=== PATIENT | female | born 1955 | race African-American/Black ===

== ENCOUNTER → 2017-02-22 | Outpatient (CLI) | payer MEDICAID ==
--- NOTE | 2017-02-22 11:31 | WOMENS IMAGING REPORT ---
EXAM DESCRIPTION: BILAT SCREENING MAMMO W/CAD COMPLETED DATE/TIME: 02/22/2017 9:42 am REASON FOR STUDY: ROUTINE SCREENING; Z12.31 Z12.31 ENCNTR SCREEN MAMMOGRAM FOR MALIGNANT NEOPLASM O F CHRISTEN COMPARISON: 2011 to 2015 TECHNIQUE: Standard craniocaudal and mediolateral oblique views of each breast recorded using [employer] l acquisition. LIMITATIONS: None. FINDINGS: No masses, calcifications or architectural distortion. No areas of suspicion. Read with the assistance of CAD. .[facility] - R2 Cenova Version 1.3 .[facility] Imaging - R2 Cenova Version 1.3 .[facility] - R2 Cenova Version 2.4 .[facility] [place] Cenova Version 2.4 .[facility] - R2 Night Assistant Version 9.2 IMPRESSION: NORMAL MAMMOGRAM. BIRADS 1. BREAST DENSITY: b. There are scattered areas of fibroglandular density. BIRAD: 1 NEGATIVE RECOMMENDATION: ROUTINE SCREENING COMMENT: The patient has been notified of the results by letter per SA requirements. Additional no tification policies are in place for contacting patient with suspicious or incomplete findings. Quality ID #[id number]: The [employer] recommends an annual screening mammogram for women aged 40 years or over. This facility utilizes a reminder system to ensure that all patients receive reminder letters, and/or direct phone calls for appointments. This includes reminders for routine scr eening mammograms, diagnostic mammograms, or other Breast Imaging Interventions when appropriate. Th is patient will be placed in the appropriate reminder system. The [employer] (ACR) has developed recommendations for screening MRI of the breast s in certain patient populations, to be used in conjunction with mammography. Breast MRI surveillanc e may be appropriate for women with more than 20% lifetime risk of developing breast cancer as deter mined by genetic testing, significant family history of the disease, or history of mantle radiation f or Hodgkins Disease. ACR Practice Guidelines 2008. TECHNICAL DOCUMENTATION: FINDING NUMBER: (1) ASSESSMENT: (1) JOB ID: [id number] [employer]- All Rights Reserved
== END ==
LOC: WI 09:17
PROVIDERS: ATTEND Internal Medicine
DX: Z12.31 Encounter for screening mammogram for malignant neoplasm of breast (principal)
CPT/HCPCS: 77067; G0202

== ENCOUNTER 2019-02-26 05:56 | Inpatient (IN) | payer MEDICAID ==
--- NOTE | 2019-02-26 06:48 | RADIOLOGY REPORT (SQ) ---
EXAM: X-ray hip two or more views CLINICAL DATA: 63-year-old female with hip pain status post fall TECHNICAL DATA: Two x-ray views of the pelvis and left hip were performed on 02/26/2019 at 6:32 AM. COMPARISONS: None FINDINGS: There is a mildly displaced, mildly comminuted acutely angulated fracture through the left femoral neck. The hip joints are intact. No lytic or sclerotic bone lesions are seen. No significant arthritic or degenerative changes are identified. Bone mineralization is normal. No focal soft tissue abnormalities are identified. IMPRESSION: Mildly displaced and mildly comminuted acutely angulated fracture through the left femoral neck.
[2019-02-26 06:54] LABS: ABSOLUTE EOSINOPHILS # (AUTO) 0.1 10^3/uL (0.0-0.6); ABSOLUTE LYMPHOCYTES (AUTO) 0.9 10^3/uL (0.5-4.7); ABSOLUTE MONOCYTES (AUTO) 0.4 10^3/uL (0.1-1.4); ABSOLUTE NEUT (AUTO) 3.6 10^3/uL (1.7-8.2); ALBUMIN 3.6 g/dL (3.5-5.0); ALKALINE PHOSPHATASE 70 U/L (38-126); ANION GAP 6 (5-19); ASPARTATE AMINO TRANSFERASE 18 U/L (14-36); BASOPHILS % (AUTO) 0.4 % (0-2); BILIRUBIN,DIRECT 0.3 mg/dL (0.0-0.4); BILIRUBIN,TOTAL 0.8 mg/dL (0.2-1.3); BLOOD UREA NITROGEN 31 mg/dL (7-20); CALCIUM 9.6 mg/dL (8.4-10.2); CARBON DIOXIDE 32 mmol/L (22-30); CHLORIDE 102 mmol/L (98-107); CREATINE KINASE 54 U/L (30-135); EOSINOPHILS % (AUTO) 1.3 % (0-6); GLUCOSE 255 mg/dL (75-110); HEMATOCRIT 37.6 % (36.0-47.0); HEMOGLOBIN 12.4 g/dL (12.0-15.5); LYMPHOCYTES % (AUTO) 17.8 % (13-45); MEAN CORPUSCULAR HEMOGLOBIN 28.6 pg (27.0-33.4); MEAN CORPUSCULAR HGB CONC 32.9 g/dL (32.0-36.0); MEAN CORPUSCULAR VOLUME 87 fl (80-97); MONOCYTES % (AUTO) 8.2 % (3-13); PLATELET COUNT 221 10^3/uL (150-450); POTASSIUM 4.4 mmol/L (3.6-5.0); RED BLOOD COUNT 4.33 10^6/uL (3.72-5.28); RED CELL DISTRIBUTION WIDTH 13.1 % (11.5-14.0); SEGMENTED NEUTROPHILS % (AUTO) 72.3 % (42-78); TOTAL CELLS COUNTED % (AUTO) 100 %; TOTAL PROTEIN 6.5 g/dL (6.3-8.2)
--- NOTE | 2019-02-26 07:09 | ER Document Report ---
Entered by KAUR JIM SCRIBE 02/26/19 0651 Acting as scribe for:BARRY NOVAK MD ED Fall - General Chief Complaint: Fall Stated Complaint: LEFT HIP PAIN Time Seen by Provider: 02/26/19 06:12 Mode of Arrival: Medic Information source: Patient Notes: Patient is a 63 year old female that presents to the emergency department today with complaints of left hip pain resulting from a fall that occurred just prior to arrival. Patient states that she fell trying to get to the bathroom. Patient states she falls a lot which she attributes to "low blood sugar". Patient states that after she fell she was unable to get up today. TRAVEL OUTSIDE OF THE [place] IN LAST 30 DAYS: No - Related data Allergies/Adverse Reactions: No Known Allergies Allergy (Unverified 08/22/11 11:10) Past Medical History - General Information source: Patient, [facility] Records - Social History Smoking Status: Former Smoker Cigarette use (# per day): No Frequency of alcohol use: None Drug Abuse: None Lives with: Family Family History: None - Past Medical History Cardiac Medical History: Reports: Hx Hypercholesterolemia, Hx Hypertension Endocrine Medical History: Reports: Hx Diabetes Mellitus Type 2 Musculoskeletal Medical History: Reports Hx Arthritis Past Surgical History: Reports: Hx Breast Surgery - breast bx - Immunizations Immunizations up to date: No Hx Diphtheria, Pertussis, Tetanus Vaccination: No - unknown Review of Systems - Review of Systems Constitutional: No symptoms reported EENT: No symptoms reported Cardiovascular: No symptoms reported Respiratory: No symptoms reported Gastrointestinal: No symptoms reported Genitourinary: No symptoms reported Female Genitourinary: No symptoms reported Musculoskeletal: See HPI, Joint pain - left hip Skin: No symptoms reported Hematologic/Lymphatic: No symptoms reported Neurological/Psychological: No symptoms reported -: Yes All other systems reviewed and negative Physical Exam - Vital signs Vitals: Temp 98.7 F 02/26/19 06:20 - Notes Notes: Physical Exam: General: Alert, appears uncomfortable. HEENT: Normocephalic. Atraumatic. PERRL. Extraocular movements intact. Oropharynx clear. Edentulous. Neck: Supple. Non-tender. Patient felt much better when the hard collar was removed. She lifted her head up and look at all about and reported no tenderness. There was no tenderness on palpating the posterior cervical muscles and spinous processes. Respiratory: No respiratory distress. Clear and equal breath sounds bilaterally. Cardiovascular: Regular rate and rhythm. Abdominal: Obese. No distension. Normal Bowel Sounds. Back: No gross abnormalities. Extremities: Upper extremities: Normal inspection. Normal ROM. Lower extremities: LLE is shortened and externally rotated. Left hip tenderness with palpation. 2+ dorsalis pedis pulses bilaterally. Toes are warm and distal sensation is intact. Neurological: Normal cognition. AAOx4. Normal speech. Psychological: Normal affect. Normal Mood. Skin: Warm. Dry. Normal color. Course - Vital Signs Vital signs: Temp Pulse Resp BP Pulse Ox 98.7 F 02/26/19 06:20 - Laboratory Result Diagrams: 02/26/19 06:07 02/26/19 06:07 Laboratory results interpreted by me: 02/26/19 02/26/19 06:07 07:00 Carbon Dioxide 32 H BUN 31 H Est GFR (MDRD) Non-Af 56 L Glucose 255 H Urine Glucose (UA) >=500 H Urine Blood SMALL H Ur Leukocyte Esterase LARGE H - Diagnostic Test Radiology reviewed: Image reviewed, Reports reviewed - Left femoral neck fracture, slightly displaced and angulated with some comminution. - EKG Interpretation by Me EKG shows normal: Sinus rhythm, [place], Intervals, ST-T Waves. abnormal: QRS Complexes - Abnormal R progression Rate: Normal Rhythm: NSR [place]/QRS: Left axis deviation When compared to previous EKG there are: Previous EKG unavailable - Consults Dr. Ambrocio Time consulted: 06:44 Consulted provider: will come to ER Dr. Cooley Time consulted: 07:40 Consulted provider: will see as inpatient Discharge - Discharge Clinical Impression: Fx femoral neck Qualifiers: Encounter type: initial encounter Fracture type: closed Laterality: left Qualified Code(s): S72.002A - Fracture of unspecified part of neck of left femur, initial encounter for closed fracture Urinary tract infection Qualifiers: Urinary tract infection type: site unspecified Hematuria presence: without hematuria Qualified Code(s): N39.0 - Urinary tract infection, site not specified Condition: Stable Disposition: ADMITTED INPATIENT Admitting Provider: Lenora Unit Admitted: Surgical Floor Scribe Attestation: 02/26/19 07:41 I personally performed the services described in the documentation, reviewed and edited the documentation which was dictated to the scribe in my presence, and it accurately records my words and actions. I personally performed the services described in the documentation, reviewed and edited the documentation which was dictated to the scribe in my presence, and it accurately records my words and actions.
--- NOTE | 2019-02-26 07:35 | Progress Note ---
Provider Note Provider Note: Patient seen and examined in the emergency department. Left femoral neck fracture without associated injury. Plan will be for left hip hemiarthroplasty versus total arthroplasty. -Make n.p.o. now, will work to have her added on this afternoon versus tomorrow. -Medical clearance needed -Pre-operative work-up including PT/INR type and screen, UA, EKG, CBC -Nonweightbearing -Full consult pending
[2019-02-26] MEDS ORDERED: FENTANYL CITRATE INJ/PF 100 MCG/2 ML AMPUL IV ONE (07:42)
[2019-02-26 07:45] LABS: APPEARANCE,URINE SLIGHTLY-CLOUDY; BILIRUBIN,URINE NEGATIVE (NEGATIVE); COLOR,URINE YELLOW; GLUCOSE, URINE >=500 mg/dL (NEGATIVE); KETONES,URINE NEGATIVE (NEGATIVE); LEUKOCYTE ESTERASE,URINE LARGE (NEGATIVE); NITRITE,URINE NEGATIVE (NEGATIVE); PROTEIN,URINE NEGATIVE (NEGATIVE); UROBILINOGEN,URINE NEGATIVE mg/dL (<2.0)
[2019-02-26] MEDS ORDERED: CEFTRIAXONE 1 GM/D5W RTU 1 GM/50 ML RTUPB IV ONE (07:54)
[2019-02-26] MEDS ORDERED: DEXTROSE 50%-WATER 25 GM/50 ML DISP.SYRIN IV PRN ×2 (08:19)
[2019-02-26] MEDS ORDERED: GLUCAGON,HUMAN RECOMB 1 MG INJ IM PRN (08:19)
[2019-02-26] MEDS ORDERED: DEXTROSE 40% GEL 15 GM TUBE PO PRN ×2 (08:19)
[2019-02-26 09:27] LABS: FREE T4 (FREE THYROXINE) 1.29 ng/dL (0.78-2.19)
[2019-02-26 09:40] LABS: THYROID STIMULATING HORMONE 6.8 uIU/mL (0.47-4.68)
[2019-02-26 09:43] LABS: INTERNATIONAL RATION (INR) 1.03; PROTHROMBIN TIME 13.5 SEC (11.4-15.4)
[2019-02-26 09:44] LABS: PARTIAL THROMBOPLASTIN TIME 27.2 SEC (23.5-35.8)
[2019-02-26 09:53] LABS: CREATINE KINASE MB 0.79 ng/mL (<4.55)
[2019-02-26 09:59] LABS: TROPONIN I < 0.012 ng/mL
[2019-02-26] MEDS: ENOXAPARIN SODIUM INJ 40 MG/0.4 ML DISP.SYRIN SUBCUT SCH (10:12)
[2019-02-26 10:21] LABS: URINE AMPHETAMINES SCREEN NEGATIVE; URINE BARBITURATES SCREEN NEGATIVE; URINE BENZODIAZEPINES SCREEN NEGATIVE; URINE COCAINE SCREEN NEGATIVE; URINE MARIJUANA (THC) SCREEN NEGATIVE; URINE METHADONE SCREEN NEGATIVE; URINE PHENCYCLIDINE SCREEN NEGATIVE
[2019-02-26] MEDS: NORMAL SALINE 1000 ML 1,000 ML IV PRN (10:33)
[2019-02-26] MEDS: INSULIN LISPRO 100 UNIT/ML 3 ML VIAL SUBCUT SCH ×3 (11:41→22:51)
[2019-02-26] MEDS: HYDROMORPHONE HCL INJ/PF 2 MG/ML AMPULE IV PRN ×2 (12:38→18:39)
--- NOTE | 2019-02-26 12:56 | PDOC CONSULTATION ---
Consultation Consult Date: 02/26/19 Provider Consulted: MAHOGANY YANG JR History of Present Illness Admission Date/PCP: 02/26/19 07:49 ESVIN VITAL MD History of Present Illness: LAURA EDOUARD is a 63 year old female seen and examined in the emergency department with a recent fall and then subsequent inability to ambulate. She explains that she was dizzy prior to her fall which she attributes to her sugar imbalance. Following her fall she had difficulty ambulating and pain in the left hip she presented to the ER where x-rays demonstrated a left femoral neck fracture. She denies prior pain in that joint however she is a regular ambulator. Pain right now is isolated to the left hip she denies pain elsewhere denies any associated injury or loss of consciousness. Pain currently is 5 out of 10 at rest achy leading to limited range of motion of her left hip. Past Medical History Cardiac Medical History: Reports: Hyperlipidema, Hypertension Denies: Coronary Artery Disease, Myocardial Infarction Pulmonary Medical History: Denies: Asthma, Bronchitis, Chronic Obstructive Pulmonary Disease (COPD), Pneumonia Neurological Medical History: Denies: Seizures Endocrine Medical History: Reports: Diabetes Mellitus Type 2 Musculoskeltal Medical History: Reports: Arthritis Hematology: Reports: Anemia Past Surgical History Past Surgical History: Denies: Pacemaker Social History Lives with: Family Smoking Status: Former Smoker Hx Recreational Drug Use: No - Advance Directive Resuscitation Status: Full Code Family History Family History: None Parental Family History Reviewed: No Children Family History Reviewed: No Sibling(s) Family History Reviewed.: No Medication/Allergy Home Medications: Benztropine Mesylate [Benztropine Mesylate 0.5 mg Tablet] 0.5 mg PO QHS 02/26/19 Cholecalciferol (Vitamin D3) [Vitamin D3 1000 Unit Tablet] 1,000 unit PO DAILY 02/26/19 Citalopram Hydrobromide [Citalopram HBr] 10 mg PO QHS 02/26/19 Dapagliflozin Propanediol [Farxiga] 10 mg PO DAILY 02/26/19 Furosemide [Lasix 40 mg Tablet] 40 mg PO QAM 02/26/19 Haloperidol [Haldol 5 mg Tablet] 2.5 mg PO QHS 02/26/19 Insulin Glargine,Hum.rec.anlog [Lantus Insulin 100 Unit/1 ml 10 ml] 38 unit SUBCUT QHS 02/26/19 Insulin Lispro [Humalog Insulin 100 Unit/1 ml 3 ml Vial] 14 unit SUBCUT BIDBL 02/26/19 Insulin Lispro [Humalog Insulin 100 Unit/1 ml 3 ml Vial] 18 unit SUBCUT WSUPPER 02/26/19 Metformin HCl [Glucophage 500 mg Tablet] 500 mg PO BIDACBS 02/26/19 Pioglitazone HCl [Actos] 30 mg PO DAILY 02/26/19 Simvastatin [Zocor 40 mg Tablet] 40 mg PO QHS 02/26/19 Solifenacin Succinate [Vesicare] 10 mg PO DAILY 02/26/19 Allergies/Adverse Reactions: No Known Allergies Allergy (Unverified 08/22/11 11:10) Review of Systems Review of Systems: Constitutional: ABSENT: anorexia, chills, night sweats Cardiovascular: ABSENT: chest pain Respiratory: ABSENT: dyspnea Gastrointestinal: ABSENT: vomiting Genitourinary: ABSENT: dysuria Integumentary: ABSENT: rash Neurological: ABSENT: confusion, memory loss, numbness Psychiatric: ABSENT: hallucinations Hematologic/Lymphatic: ABSENT: easy bleeding All negative as above aside from that reported in the HPI and the following: Slight dizzy spell upon standing that she attributes to her diabetes, pain in the left hip, no loss of sensation or motor function to the left lower extremity Physical Exam Vital Signs: Temp Pulse Resp BP Pulse Ox 98.6 F 91 18 116/62 98 02/26/19 11:12 02/26/19 11:12 02/26/19 11:12 02/26/19 11:12 02/26/19 11:12 Intake & Output 02/25/19 02/26/19 02/27/19 06:59 06:59 06:59 Intake Total 50 Balance 50 Weight 96.4 kg 88.6 kg Additional comments: General appearance: PRESENT: no acute distress, cooperative, well-nourished Head exam: PRESENT: atraumatic, normocephalic Eye exam: PRESENT: EOMI Ear exam: PRESENT: normal external ear exam Mouth exam: PRESENT: neck supple Neck exam: ABSENT: tracheal deviation Respiratory exam: PRESENT: symmetrical, unlabored. ABSENT: accessory muscle use, wheezes Pulses: PRESENT: normal radial pulses, normal dorsalis pedis pul Vascular exam: PRESENT: normal capillary refill GI/Abdominal exam: ABSENT: distended, firm Extremities exam: PRESENT: full ROM Musculoskeletal exam: PRESENT: full ROM, normal inspection Neurological exam: PRESENT: alert, awake, oriented to person, oriented to place, oriented to time Psychiatric exam: PRESENT: appropriate affect. ABSENT: agitated Focused psych exam: ABSENT: catatonic Skin exam: PRESENT: intact. ABSENT: dry All as above aside from that noted in the HPI and the following: The patient underwent a full primary inspection including range of motion of all joints and palpation of all long bones. The patient maintains range of motion without pain of upper and lower extremity joints, no tenderness to the cervical spine or pain with neck range of motion, and no palpable crepitance or deformity aside from the exceptions below: Pain with range of motion of the left hip isolated to the groin, no skin abnormalities no abrasions bruising. The left lower extremity is currently short and externally rotated no pain to palpation about the left knee, active ankle range of motion doubt pain. Results Laboratory Results: 02/26/19 06:07 02/26/19 06:07 02/26/19 02/26/19 02/26/19 06:07 06:07 06:07 WBC 5.0 RBC 4.33 Hgb 12.4 Hct 37.6 MCV 87 MCH 28.6 MCHC 32.9 RDW 13.1 Plt Count 221 Seg Neutrophils % 72.3 Sodium 140.3 Potassium 4.4 Chloride 102 Carbon Dioxide 32 H Anion Gap 6 BUN 31 H Creatinine 0.99 Est GFR ( Amer) > 60 Glucose 255 H Calcium 9.6 Phosphorus 5.0 H Magnesium 2.1 Total Bilirubin 0.8 AST 18 Alkaline Phosphatase 70 Ammonia Total Protein 6.5 Albumin 3.6 Amylase 73 Lipase 71.2 TSH Free T4 Urine Color Urine Appearance Urine pH Ur Specific [place] Urine Protein Urine Glucose (UA) Urine Ketones Urine Blood Urine Nitrite Ur Leukocyte Esterase Urine WBC (Auto) Urine RBC (Auto) 02/26/19 02/26/19 02/26/19 06:07 07:00 09:05 WBC RBC Hgb Hct MCV MCH MCHC RDW Plt Count Seg Neutrophils % Sodium Potassium Chloride Carbon Dioxide Anion Gap BUN Creatinine Est GFR ( Amer) Glucose Calcium Phosphorus Magnesium Total Bilirubin AST Alkaline Phosphatase Ammonia < 8.7 L Total Protein Albumin Amylase Lipase TSH 6.80 H Free T4 1.29 Urine Color YELLOW Urine Appearance SLIGHTLY-CLOUDY Urine pH 5.0 Ur Specific [place] 1.010 Urine Protein NEGATIVE Urine Glucose (UA) >=500 H Urine Ketones NEGATIVE Urine Blood SMALL H Urine Nitrite NEGATIVE Ur Leukocyte Esterase LARGE H Urine WBC (Auto) 104 Urine RBC (Auto) 2 02/26/19 02/26/19 02/26/19 06:07 06:07 06:07 Creatine Kinase 54 CK-MB (CK-2) Troponin I < 0.012 NT-Pro-B Natriuret Pep 84 02/26/19 02/26/19 09:05 09:05 Creatine Kinase 55 CK-MB (CK-2) 0.79 Troponin I < 0.012 NT-Pro-B Natriuret Pep Impressions: Hip X-Ray 02/26/19 00:00 IMPRESSION: Mildly displaced and mildly comminuted acutely angulated fracture through the left femoral neck. Assessment & Plan - Diagnosis (1) Fx femoral neck Qualifiers: Encounter type: initial encounter Fracture type: closed Laterality: left Qualified Code(s): S72.002A - Fracture of unspecified part of neck of left femur, initial encounter for closed fracture Plan: She is scheduled for a left hip hemiarthroplasty versus total arthroplasty tomorrow after lunch. -Left knee films pending -N.p.o. ordered for after midnight -Nonweightbearing -Anabiotic's ordered for preop -We will plan for aspirin for DVT prophylaxis postoperatively. Until that time please hold all chemical DVT prophylaxis -We will plan for PT evaluation and mobilization immediately postop tomorrow afternoon -Patient has a current UTI that may be asymptomatic bacteriuria but if culture demonstrates sensitivities outside of her perioperative antibiotics a presc ription should be written for 1 week of home use -MR SA nasal screen is ordered. (2) Urinary tract infection Qualifiers: Urinary tract infection type: site unspecified Hematuria presence: without hematuria Qualified Code(s): N39.0 - Urinary tract infection, site not specified
--- NOTE | 2019-02-26 15:05 | RADIOLOGY REPORT (SQ) ---
EXAM DESCRIPTION: KNEE LEFT 2 VIEWS COMPLETED DATE/TIME: 02/26/2019 2:34 pm REASON FOR STUDY: Pre-operative planning COMPARISON: None. NUMBER OF VIEWS: Three views. TECHNIQUE: AP, lateral, and oblique radiographic images acquired of the left knee. LIMITATIONS: None. FINDINGS: MINERALIZATION: Normal. BONES: No acute fracture or dislocation. No worrisome bone lesions. JOINT: No effusion. There are posterior patellar osteophytes. SOFT TISSUES: No soft tissue swelling. No radio-opaque foreign body. OTHER: No other significant finding. IMPRESSION: Mild degenerative joint changes. TECHNICAL DOCUMENTATION: JOB ID: [id number] [employer]- All Rights Reserved Reading location - IP/workstation name: [email or web address]
[2019-02-26 16:39] LABS: TROPONIN I < 0.012 ng/mL
--- NOTE | 2019-02-26 21:23 | PDOC H&P ---
History of Present Illness Admission Date/PCP: 02/26/19 07:49 ESVIN VITAL MD History of Present Illness: LAURA EDOUARD is a 63 year old female, She felt this morning and sustained fr acture of the left hip joint, there was no antecedent loss of consciousness there was no chest pain bowels no syncope she tripped and missed steps.She has insulin requiring diabetes mellitus. Based on the revised cardiac risk index score, she does not have coronary artery disease, no congestive heart failure, no chronic kidney disease with serum creatinine of more than 2, no CVA based on all these factors, the cardiovascular risk in the perioperative period is very low, she can proceed to surgery Past Medical History Cardiac Medical History: Reports: Hyperlipidema, Hypertension Endocrine Medical History: Reports: Diabetes Mellitus Type 2 Musculoskeltal Medical History: Reports: Arthritis Hematology: Reports: Anemia Past Surgical History Past Surgical History: Denies: Pacemaker Social History Lives with: Family Smoking Status: Former Smoker Hx Recreational Drug Use: No - Advance Directive Resuscitation Status: Full Code Family History Family History: None Parental Family History Reviewed: Yes Children Family History Reviewed: Yes Sibling(s) Family History Reviewed.: Yes Medication/Allergy Home Medications: Benztropine Mesylate [Benztropine Mesylate 0.5 mg Tablet] 0.5 mg PO QHS 02/26/19 Cholecalciferol (Vitamin D3) [Vitamin D3 1000 Unit Tablet] 1,000 unit PO DAILY 02/26/19 Citalopram Hydrobromide [Citalopram HBr] 10 mg PO QHS 02/26/19 Dapagliflozin Propanediol [Farxiga] 10 mg PO DAILY 02/26/19 Furosemide [Lasix 40 mg Tablet] 40 mg PO QAM 02/26/19 Haloperidol [Haldol 5 mg Tablet] 2.5 mg PO QHS 02/26/19 Insulin Glargine,Hum.rec.anlog [Lantus Insulin 100 Unit/1 ml 10 ml] 38 unit SUBCUT QHS 02/26/19 Insulin Lispro [Humalog Insulin 100 Unit/1 ml 3 ml Vial] 14 unit SUBCUT BIDBL 02/26/19 Insulin Lispro [Humalog Insulin 100 Unit/1 ml 3 ml Vial] 18 unit SUBCUT WSUPPER 02/26/19 Metformin HCl [Glucophage 500 mg Tablet] 500 mg PO BIDACBS 02/26/19 Pioglitazone HCl [Actos] 30 mg PO DAILY 02/26/19 Simvastatin [Zocor 40 mg Tablet] 40 mg PO QHS 02/26/19 Solifenacin Succinate [Vesicare] 10 mg PO DAILY 02/26/19 Allergies/Adverse Reactions: No Known Allergies Allergy (Unverified 08/22/11 11:10) Review of Systems Constitutional: ABSENT: chills, fever(s), headache(s), weight gain, weight loss Eyes: ABSENT: visual disturbances Ears: ABSENT: hearing changes Cardiovascular: ABSENT: chest pain, dyspnea on exertion, edema, orthropnea, palpitations Respiratory: ABSENT: cough, hemoptysis Gastrointestinal: ABSENT: abdominal pain, constipation, diarrhea, hematemesis, hematochezia, nausea, vomiting Genitourinary: ABSENT: dysuria, hematuria Musculoskeletal: PRESENT: joint swelling Integumentary: ABSENT: rash, wounds Neurological: ABSENT: abnormal gait, abnormal speech, confusion, dizziness, focal weakness, syncope Psychiatric: ABSENT: anxiety, depression, homidical ideation, suicidal ideation Endocrine: ABSENT: cold intolerance, heat intolerance, menstrual abnormalities, polydipsia, polyuria Hematologic/Lymphatic: ABSENT: easy bleeding, easy bruising, lymphadenopathy Physical Exam Vital Signs: Temp Pulse Resp BP Pulse Ox 98.5 F 95 16 122/53 L 94 02/26/19 19:08 02/26/19 19:08 02/26/19 19:08 02/26/19 19:08 02/26/19 19:08 Intake & Output 02/25/19 02/26/19 02/27/19 06:59 06:59 06:59 Intake Total 646 Output Total 1450 Balance -804 Weight 96.4 kg 88.6 kg General appearance: PRESENT: no acute distress, well-developed, well-nourished Head exam: PRESENT: atraumatic, normocephalic Eye exam: PRESENT: conjunctiva pink, EOMI, PERRLA Ear exam: PRESENT: normal external ear exam Mouth exam: PRESENT: moist, tongue midline Neck exam: PRESENT: full ROM Respiratory exam: PRESENT: clear to auscultation ifeoma Cardiovascular exam: PRESENT: RRR, +S1, +S2 Pulses: PRESENT: normal dorsalis pedis pul, +2 pedal pulses bilateral Vascular exam: PRESENT: normal capillary refill GI/Abdominal exam: PRESENT: normal bowel sounds, soft Rectal exam: PRESENT: deferred Neurological exam: PRESENT: alert, awake, oriented to person, oriented to place, oriented to time, oriented to situation, CN II-XII grossly intact Psychiatric exam: PRESENT: appropriate affect, normal mood Skin exam: PRESENT: dry, intact, warm. ABSENT: cyanosis, rash Results Laboratory Results: 02/26/19 06:07 02/26/19 06:07 02/26/19 02/26/19 02/26/19 06:07 06:07 06:07 WBC 5.0 RBC 4.33 Hgb 12.4 Hct 37.6 MCV 87 MCH 28.6 MCHC 32.9 RDW 13.1 Plt Count 221 Seg Neutrophils % 72.3 Sodium 140.3 Potassium 4.4 Chloride 102 Carbon Dioxide 32 H Anion Gap 6 BUN 31 H Creatinine 0.99 Est GFR ( Amer) > 60 Glucose 255 H Calcium 9.6 Phosphorus 5.0 H Magnesium 2.1 Total Bilirubin 0.8 AST 18 Alkaline Phosphatase 70 Ammonia Total Protein 6.5 Albumin 3.6 Amylase 73 Lipase 71.2 TSH Free T4 Urine Color Urine Appearance Urine pH Ur Specific [place] Urine Protein Urine Glucose (UA) Urine Ketones Urine Blood Urine Nitrite Ur Leukocyte Esterase Urine WBC (Auto) Urine RBC (Auto) 02/26/19 02/26/19 02/26/19 06:07 07:00 09:05 WBC RBC Hgb Hct MCV MCH MCHC RDW Plt Count Seg Neutrophils % Sodium Potassium Chloride Carbon Dioxide Anion Gap BUN Creatinine Est GFR ( Amer) Glucose Calcium Phosphorus Magnesium Total Bilirubin AST Alkaline Phosphatase Ammonia < 8.7 L Total Protein Albumin Amylase Lipase TSH 6.80 H Free T4 1.29 Urine Color YELLOW Urine Appearance SLIGHTLY-CLOUDY Urine pH 5.0 Ur Specific [place] 1.010 Urine Protein NEGATIVE Urine Glucose (UA) >=500 H Urine Ketones NEGATIVE Urine Blood SMALL H Urine Nitrite NEGATIVE Ur Leukocyte Esterase LARGE H Urine WBC (Auto) 104 Urine RBC (Auto) 2 02/26/19 02/26/19 02/26/19 06:07 06:07 06:07 Creatine Kinase 54 CK-MB (CK-2) Troponin I < 0.012 NT-Pro-B Natriuret Pep 84 02/26/19 02/26/19 02/26/19 09:05 09:05 15:20 Creatine Kinase 55 111 CK-MB (CK-2) 0.79 Troponin I < 0.012 NT-Pro-B Natriuret Pep 02/26/19 15:20 Creatine Kinase CK-MB (CK-2) 1.60 Troponin I < 0.012 NT-Pro-B Natriuret Pep Impressions: Hip X-Ray 02/26/19 00:00 IMPRESSION: Mildly displaced and mildly comminuted acutely angulated fracture through the left femoral neck. Knee X-Ray 02/26/19 00:00 IMPRESSION: Mild degenerative joint changes. 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
[2019-02-26 21:44] LABS: CREATINE KINASE MB 3.33 ng/mL (<4.55)
[2019-02-26 21:45] LABS: TROPONIN I < 0.012 ng/mL
[2019-02-26] MEDS ORDERED: (PENDING PHARMACY ID) (Citalopram Hydrobromide [Citalopram Hbr] 10 MG) PO SCH (22:00)
[2019-02-26] MEDS ORDERED: (PENDING PHARMACY ID) (Benztropine Mesylate [Benztropine Mesylate 0.5 Mg Tablet] 0.5 MG) PO SCH (22:00)
[2019-02-26] MEDS ORDERED: ACETAMINOPHEN 325 MG TABLET ONE (22:43)
[2019-02-26] MEDS: METFORMIN HCL 500 MG TABLET PO SCH (22:47)
[2019-02-26] MEDS: CITALOPRAM HYDROBROMIDE 20 MG TABLET PO SCH (22:49)
[2019-02-26] MEDS: SIMVASTATIN 40 MG TABLET PO SCH (22:49)
[2019-02-26] MEDS: HALOPERIDOL 5 MG TABLET PO SCH (22:50)
[2019-02-26] MEDS: INSULIN GLARGINE,HUM.REC.ANLOG 1,000 UNIT/10 ML VIAL SUBCUT SCH (22:52)
[2019-02-26] MEDS: PIOGLITAZONE HCL 30 MG TABLET PO SCH (22:54)
[2019-02-26] MEDS: CHOLECALCIFEROL (D3) 1,000 UNIT (25 MCG) TABLET PO SCH (22:58)
[2019-02-26] MEDS: ACETAMINOPHEN 325 MG TABLET PO PRN (23:06)
--- NOTE | 2019-02-26 23:16 | EKG REPORT ---
SEVERITY:- ABNORMAL ECG - SINUS RHYTHM BORDERLINE LEFT AXIS DEVIATION ABNRM R PROG, CONSIDER ASMI OR LEAD PLACEMENT : Confirmed by: Narendra Sanchez 26-Feb-2019 23:15:18
[2019-02-27] MEDS: NORMAL SALINE 1000 ML 1,000 ML IV PRN ×2 (01:04→22:33)
[2019-02-27] MEDS: HYDROMORPHONE HCL INJ/PF 2 MG/ML AMPULE IV PRN (01:04)
[2019-02-27] MEDS ORDERED: VANCOMYCIN HCL 1,000 MG in DEXTROSE 5%-WATER 250 ML IV PRN (05:00)
[2019-02-27] MEDS ORDERED: CEFAZOLIN SODIUM 2 GM in DEXTROSE 5%-WATER 100 ML IV SCH ×2 (06:00→14:00)
[2019-02-27] MEDS: METFORMIN HCL 500 MG TABLET PO SCH ×2 (07:52→17:43)
[2019-02-27] MEDS: INSULIN LISPRO 100 UNIT/ML 3 ML VIAL SUBCUT SCH ×4 (07:53→22:29)
[2019-02-27 08:01] LABS: ABSOLUTE EOSINOPHILS # (AUTO) 0.1 10^3/uL (0.0-0.6); ABSOLUTE LYMPHOCYTES (AUTO) 0.8 10^3/uL (0.5-4.7); ABSOLUTE MONOCYTES (AUTO) 0.7 10^3/uL (0.1-1.4); ABSOLUTE NEUT (AUTO) 5.9 10^3/uL (1.7-8.2); BASOPHILS % (AUTO) 0.3 % (0-2); EOSINOPHILS % (AUTO) 0.9 % (0-6); HEMOGLOBIN 11.2 g/dL (12.0-15.5); LYMPHOCYTES % (AUTO) 11.1 % (13-45); MEAN CORPUSCULAR HEMOGLOBIN 28.4 pg (27.0-33.4); MEAN CORPUSCULAR HGB CONC 32.9 g/dL (32.0-36.0); MEAN CORPUSCULAR VOLUME 86 fl (80-97); MONOCYTES % (AUTO) 9.2 % (3-13); PLATELET COUNT 199 10^3/uL (150-450); RED BLOOD COUNT 3.94 10^6/uL (3.72-5.28); RED CELL DISTRIBUTION WIDTH 12.9 % (11.5-14.0); SEGMENTED NEUTROPHILS % (AUTO) 78.5 % (42-78); TOTAL CELLS COUNTED % (AUTO) 100 %; WHITE BLOOD COUNT 7.5 10^3/uL (4.0-10.5)
[2019-02-27 08:22] LABS: ALBUMIN 3.3 g/dL (3.5-5.0); ALKALINE PHOSPHATASE 58 U/L (38-126); ANION GAP 8 (5-19); ASPARTATE AMINO TRANSFERASE 38 U/L (14-36); BILIRUBIN,DIRECT 0.3 mg/dL (0.0-0.4); BLOOD UREA NITROGEN 31 mg/dL (7-20); CALCIUM 8.8 mg/dL (8.4-10.2); CARBON DIOXIDE 28 mmol/L (22-30); CHLORIDE 99 mmol/L (98-107); CHOLESTEROL 175.18 mg/dL (0-200); GLUCOSE 134 mg/dL (75-110); POTASSIUM 3.8 mmol/L (3.6-5.0); TOTAL PROTEIN 6.3 g/dL (6.3-8.2); TRIGLYCERIDES 49 mg/dL (<150)
[2019-02-27 08:38] LABS: DIRECT LDL 78 mg/dL (<100)
[2019-02-27] MEDS: PIOGLITAZONE HCL 30 MG TABLET PO SCH (09:13)
[2019-02-27] MEDS: CHOLECALCIFEROL (D3) 1,000 UNIT (25 MCG) TABLET PO SCH (09:14)
[2019-02-27] MEDS: ENOXAPARIN SODIUM INJ 40 MG/0.4 ML DISP.SYRIN SUBCUT SCH (09:14)
[2019-02-27] MEDS ORDERED: CITALOPRAM HYDROBROMIDE 20 MG TABLET PO SCH (10:00)
[2019-02-27] MEDS ORDERED: PROPOFOL INJ 200 MG/20 ML VIAL IV ONE ×2 (12:15→13:11)
[2019-02-27] MEDS ORDERED: MIDAZOLAM 2 MG/2 ML INJ ONE (12:15)
[2019-02-27] MEDS ORDERED: HYDROMORPHONE HCL INJ/PF 2 MG/ML AMPULE ONE (12:15)
[2019-02-27] MEDS ORDERED: FENTANYL CITRATE INJ/PF 100 MCG/2 ML AMPUL ONE (12:15)
[2019-02-27] MEDS ORDERED: VANCOMYCIN HCL INJ 1000 MG VIAL IV ONE (12:30)
[2019-02-27] MEDS ORDERED: CEFAZOLIN SODIUM 2 GM in DEXTROSE 5%-WATER 100 ML IV PRN (12:45)
[2019-02-27] MEDS ORDERED: BUPIVACAINE HCL 0.5 % INJ/PF 30 ML SDV ONE (13:31)
[2019-02-27] MEDS ORDERED: VANCOMYCIN HCL INJ 1000 MG VIAL ONE ×2 (13:31→14:41)
[2019-02-27] MEDS ORDERED: GENTAMICIN SULFATE INJ 80 MG/2 ML VIAL ONE (13:31)
[2019-02-27] MEDS ORDERED: BACITRACIN INJ 50,000 UNIT VIAL ONE (13:32)
[2019-02-27] MEDS ORDERED: MORPHINE SULFATE 10 MG/ML INJ IV PRN (14:05)
[2019-02-27] MEDS ORDERED: DIPHENHYDRAMINE HCL 50 MG/ML VIAL IV PRN (14:05)
[2019-02-27] MEDS ORDERED: MEPERIDINE HCL/PF INJ 25 MG/1 ML DISP.SYRIN IV PRN (14:05)
[2019-02-27] MEDS ORDERED: OXYCODONE-ACETAMINOPHEN 5-325 MG TABLET PO PRN ×2 (14:05)
[2019-02-27] MEDS ORDERED: FENTANYL CITRATE INJ/PF 100 MCG/2 ML AMPUL IV PRN ×3 (14:05)
[2019-02-27] MEDS ORDERED: KETOROLAC TROMETHAMINE 60 MG/2 ML SDV ONE (14:06)
[2019-02-27] MEDS ORDERED: BUPIVACAINE HCL 0.25 % INJ/PF (2.5 MG/1 ML) 30 ML VIAL ONE (14:06)
[2019-02-27] MEDS ORDERED: ONDANSETRON HCL INJ/PF 4 MG/2 ML SDV IV PRN (14:10)
--- NOTE | 2019-02-27 16:29 | Brief Operative Note ---
BRIEF OPERATIVE REPORT DATE OF SURGERY: 02/27/19 TIME OF SURGERY: 16:27 PREOPERATIVE DIAGNOSIS: Left femoral neck fracture displaced POSTOPERATIVE DIAGNOSIS: same SURGEON: MAHOGANY YANG JR FINDINGS: left Femoral neck fracture, completely displaced COMPLICATIONS: None ESTIMATED BLOOD LOSS: 150cc TISSUE REMOVED OR ALTERED: none TECHNICAL PROCEDURE: Left hip bipolar hemiarthroplasty
--- NOTE | 2019-02-27 16:52 | RADIOLOGY REPORT (SQ) ---
EXAM DESCRIPTION: HIP LEFT AP/LATERAL; NO CHG FLUORO COMPLETED DATE/TIME: 02/27/2019 4:45 pm; 02/27/2019 4:44 pm REASON FOR STUDY: C ARM FLUORO IN OR FOR LEFT HIP COMPARISON: None. FLUOROSCOPY TIME: Less than 1 minute. Spot images saved to PACS. TECHNIQUE: Intra-operative images acquired during surgical procedure to evaluate progress. NUMBER OF IMAGES: 1 LIMITATIONS: None. FINDINGS: Fluoroscopy was provided for intraoperative procedure. Please refer to the operative repo rt for further discussion. IMPRESSION: IMAGE(S) OBTAINED DURING PROCEDURE. COMMENT: Quality ID 145: Final reports for procedures using fluoroscopy that document radiation exp osure indices, or exposure time and number of fluorographic images (if radiation exposure indices are not available) Please consult full operative report of the attending physician for description of the procedure. TECHNICAL DOCUMENTATION: JOB ID: [id number] [employer]- All Rights Reserved Reading location - IP/workstation name: [email or web address]
--- NOTE | 2019-02-27 16:52 | RADIOLOGY REPORT (SQ) ---
EXAM DESCRIPTION: HIP LEFT AP/LATERAL; NO CHG FLUORO COMPLETED DATE/TIME: 02/27/2019 4:45 pm; 02/27/2019 4:44 pm REASON FOR STUDY: C ARM FLUORO IN OR FOR LEFT HIP COMPARISON: None. FLUOROSCOPY TIME: Less than 1 minute. Spot images saved to PACS. TECHNIQUE: Intra-operative images acquired during surgical procedure to evaluate progress. NUMBER OF IMAGES: 1 LIMITATIONS: None. FINDINGS: Fluoroscopy was provided for intraoperative procedure. Please refer to the operative repo rt for further discussion. IMPRESSION: IMAGE(S) OBTAINED DURING PROCEDURE. COMMENT: Quality ID 145: Final reports for procedures using fluoroscopy that document radiation exp osure indices, or exposure time and number of fluorographic images (if radiation exposure indices are not available) Please consult full operative report of the attending physician for description of the procedure. TECHNICAL DOCUMENTATION: JOB ID: [id number] [employer]- All Rights Reserved Reading location - IP/workstation name: [email or web address]
--- NOTE | 2019-02-27 16:59 | Operative Report ---
Operative Report DATE OF SURGERY: 02/27/19 PREOPERATIVE DIAGNOSIS: Left complete [place] displaced femoral neck fracture POSTOPERATIVE DIAGNOSIS: Same OPERATION: Left hip uncemented bipolar hemiarthroplasty SURGEON: MAHOGANY YANG JR ANESTHESIA: Spinal TISSUE REMOVED OR ALTERED: None COMPLICATIONS: None PROCEDURE: Presented to the hospital on February 26 with a left completely displaced femoral neck fracture. I visited the patient the emergency department discussed operative versus nonoperative management and the risks for both. After a thorough just discussion including her sister who helps her make her medical decisions the patient provided written consent for a left hip hemiarthroplasty versus total arthroplasty. After further discussion with her primary provider Dr. Cooley, we decided that hemiarthroplasty would be the best for her considering her mental status and the benefit of the decreased risk of dislocation. I initially wanted to place the patient on the schedule for the third however due to OR timing and staffing constraints we were held until the fourth. This did provide further time to medically optimize the patient. The patient was brought to the operative suite where they underwent spinal anesthesia. After adequate anesthesia, they were placed supine on the operating table both legs were hung sterilely prepped with chlorhexidine. 2 g of Ancef as well as 1 g of vancomycin were given preoperatively. After draping a standard sterile fashion an appropriate timeout was performed. A standard anterior incision was made with cautery through the soft tissue down to the tensor fascia. This was then sharply incised and then bluntly developed until reaching the crossing vasculature. These were cauterized and then with the assistance of retraction the hip capsule was isolated. An incision was made into the hip capsule with cautery and the fracture was exposed. A freshening neck cut was made at the appropriate level for stem implantation. The head was then removed and all debris within the capsule at this point was removed a trial implant was placed starting with a 44 and working her way to a 47 which had excellent fit. We then turned our attention to the femur which we carefully exposed. No further fracture was noted along the calcar. Starting with a padded box sewer we then progressed to a straight reamer and subsequently reamed up to a 12. We followed this with broaching starting with a 7 and finally obtaining excellent fit at a 13. A standard trial with a -6 neck length was placed on the broach and reduced. This produced excellent fit, no impingement, minimal shuck, excellent leg length, and no position of instability throughout a full range of motion. Intraoperative fluoroscopy was utilized to confirm stem position which was excellent. After this the hip was dislocated the trials were removed and the wound was thoroughly irrigated with 2 L of anabolic impregnated normal saline. Fresh drape was then placed, all gloves were changed and then the final stem was implanted, along with the bipolar head assembly. This was then reduced and again taken through a range of motion which demonstrated excellent stability and leg length. The wound was then irrigated with 50% normal saline and iodine solution, after this was evacuated and evaluated for any potential bleeding which was cauterized. The wound was irrigated once more with normal saline impregnated with antibiotics and suctioned and then 1 g of vancomycin was placed inside the joint. The fascia was then closed with 0 barbed absorbable suture. The adipose layer was also closed with this suture, followed with 2-0 Vicryl subcutaneous interrupted and finally 3-0 Monocryl running subcutaneously. Dermabond was applied and once dry a silver dressing was applied followed by a final occlusive dressing. The drapes were removed and the patient was then transferred to PACU in stable condition. The patient can now be made weightbearing as tolerated. She will receive aspirin per my recommendation for DVT prophylaxis for 6 weeks, 325 mg daily. Additionally she should receive coverage for her UTI for the at least the next 7 days. Physical therapy should see her soon as possible to encourage mobilization and activities of daily living training.
--- NOTE | 2019-02-27 17:21 | Progress Note ---
Provider Note Provider Note: Patient is status post left hip hemiarthroplasty. Doing well in PACU. Still under influence of spinal anesthesia. Postoperative x-ray appropriate. PE: Starting to move bilateral ankles well. Gross motor function is intact as well as sensation. Patient alert and oriented in good spirits. Pulses 2+ dorsalis pedis - Recommend 2 doses of Ancef postoperatively every 8 hours. - Recommend definitive antibiotic regiment for her UTI. At least 1 week of coverage -Weightbearing as tolerated encourage PT out of bed [facility] for ADL training -Recommend aspirin 325 daily for DVT prophylaxis, ordered. -Recommend multimodal pain management to avoid excessive narcotics, including gabapentin, tramadol, Toradol, acetaminophen. -I would like to follow the patient my office within the next 7 to [address] [place] [address]. in [place] office #: [phone] -Her dressing should not be removed for 7 to 10 days until seen in the office -She may shower with the dressing intact, if it starts to come off she should not get the incision wet. -No positional hip precautions
--- NOTE | 2019-02-27 17:33 | RADIOLOGY REPORT (SQ) ---
EXAM DESCRIPTION: HIP LEFT AP/LATERAL COMPLETED DATE/TIME: 02/27/2019 5:08 pm REASON FOR STUDY: Post op COMPARISON: None. NUMBER OF VIEWS: Two view(s). TECHNIQUE: Digital radiographic images of the left hip post-procedure. LIMITATIONS: None. FINDINGS: BONES: Small periprosthetic fracture about the proximal femur just superior to the lesser trochanter. DEVICE: Bi-polar prothesis. Device appears in appropriate location. SOFT TISSUES: No worrisome findings. Expected postoperative soft tissue changes. IMPRESSION: Postsurgical changes from left hip arthroplasty. Small fracture about the proximal fem ur just superior to the lesser trochanter. COMMENT: TECHNICAL DOCUMENTATION: JOB ID: [id number] [employer]- All Rights Reserved Reading location - IP/workstation name: [email or web address]
--- NOTE | 2019-02-27 17:44 | PDOC PROGRESS REPORT ---
Subjective Progress Note for:: 02/27/19 Subjective:: number patient seen by the bedside, status post left hip hemiarthroplasty Reason For Visit: LEFT HIP FRACTURE, T2DM Physical Exam Vital Signs: Temp Pulse Resp BP Pulse Ox 98.6 F 96 17 141/62 H 98 02/27/19 17:39 02/27/19 17:39 02/27/19 17:39 02/27/19 17:39 02/27/19 17:39 Intake & Output 02/26/19 02/27/19 02/28/19 06:59 06:59 06:59 Intake Total 2126 650 Output Total 2350 350 Balance -224 300 Weight 96.4 kg 88.6 kg General appearance: PRESENT: no acute distress Eye exam: PRESENT: PERRLA Respiratory exam: PRESENT: clear to auscultation ifeoma Cardiovascular exam: PRESENT: +S1, +S2 GI/Abdominal exam: PRESENT: soft Neurological exam: PRESENT: alert Results Laboratory Results: 02/27/19 07:35 02/27/19 07:35 02/27/19 02/27/19 07:35 07:35 WBC 7.5 RBC 3.94 Hgb 11.2 L Hct 34.0 L MCV 86 MCH 28.4 MCHC 32.9 RDW 12.9 Plt Count 199 Seg Neutrophils % 78.5 H Sodium 134.9 L Potassium 3.8 Chloride 99 Carbon Dioxide 28 Anion Gap 8 BUN 31 H Creatinine 0.89 Est GFR ( Amer) > 60 Glucose 134 H Calcium 8.8 Total Bilirubin 1.0 AST 38 H Alkaline Phosphatase 58 Total Protein 6.3 Albumin 3.3 L Triglycerides 49 Cholesterol 175.18 LDL Cholesterol Direct 78 VLDL Cholesterol 10.0 HDL Cholesterol 69 02/26/19 02/26/19 02/26/19 06:07 06:07 06:07 Creatine Kinase 54 CK-MB (CK-2) Troponin I < 0.012 NT-Pro-B Natriuret Pep 84 02/26/19 02/26/19 02/26/19 09:05 09:05 15:20 Creatine Kinase 55 111 CK-MB (CK-2) 0.79 Troponin I < 0.012 NT-Pro-B Natriuret Pep 02/26/19 02/26/19 02/26/19 15:20 21:04 21:04 Creatine Kinase 279 H CK-MB (CK-2) 1.60 3.33 Troponin I < 0.012 < 0.012 NT-Pro-B Natriuret Pep Impressions: Knee X-Ray 02/26/19 00:00 IMPRESSION: Mild degenerative joint changes. Fluoroscopy 02/27/19 00:00 IMPRESSION: IMAGE(S) OBTAINED DURING PROCEDURE. Hip X-Ray 02/27/19 00:00 IMPRESSION: Postsurgical changes from left hip arthroplasty. Small fracture about the proximal femur just superior to the lesser trochanter. 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
[2019-02-27] MEDS ORDERED: CEFAZOLIN 2 GM/D5W RTU 2 GM/50 ML RTUPB IV SCH (20:00)
[2019-02-27] MEDS: ACETAMINOPHEN 325 MG TABLET PO PRN (20:34)
[2019-02-27] MEDS: CEFAZOLIN SODIUM 2 GM in DEXTROSE 5%-WATER 100 ML IV SCH (20:34)
[2019-02-27] MEDS: HALOPERIDOL 5 MG TABLET PO SCH (22:28)
[2019-02-27] MEDS: CITALOPRAM HYDROBROMIDE 20 MG TABLET PO SCH (22:28)
[2019-02-27] MEDS: SIMVASTATIN 40 MG TABLET PO SCH (22:29)
[2019-02-27] MEDS: INSULIN GLARGINE,HUM.REC.ANLOG 1,000 UNIT/10 ML VIAL SUBCUT SCH (22:30)
[2019-02-28 05:03] LABS: ABSOLUTE EOSINOPHILS # (AUTO) 0.1 10^3/uL (0.0-0.6); ABSOLUTE MONOCYTES (AUTO) 0.7 10^3/uL (0.1-1.4); ABSOLUTE NEUT (AUTO) 6.9 10^3/uL (1.7-8.2); BASOPHILS % (AUTO) 0.4 % (0-2); EOSINOPHILS % (AUTO) 0.8 % (0-6); HEMATOCRIT 29.1 % (36.0-47.0); MEAN CORPUSCULAR HEMOGLOBIN 29.3 pg (27.0-33.4); MEAN CORPUSCULAR HGB CONC 34.3 g/dL (32.0-36.0); MEAN CORPUSCULAR VOLUME 85 fl (80-97); PLATELET COUNT 166 10^3/uL (150-450); RED CELL DISTRIBUTION WIDTH 13.1 % (11.5-14.0); SEGMENTED NEUTROPHILS % (AUTO) 79.8 % (42-78); TOTAL CELLS COUNTED % (AUTO) 100 %; WHITE BLOOD COUNT 8.6 10^3/uL (4.0-10.5)
[2019-02-28 05:28] LABS: ALBUMIN 2.8 g/dL (3.5-5.0); ALKALINE PHOSPHATASE 53 U/L (38-126); ANION GAP 9 (5-19); ASPARTATE AMINO TRANSFERASE 147 U/L (14-36); BILIRUBIN,DIRECT 0.3 mg/dL (0.0-0.4); BILIRUBIN,TOTAL 1.1 mg/dL (0.2-1.3); BLOOD UREA NITROGEN 27 mg/dL (7-20); CALCIUM 8.4 mg/dL (8.4-10.2); CARBON DIOXIDE 25 mmol/L (22-30); CHLORIDE 103 mmol/L (98-107); GLUCOSE 118 mg/dL (75-110); POTASSIUM 3.7 mmol/L (3.6-5.0); TOTAL PROTEIN 5.5 g/dL (6.3-8.2)
[2019-02-28] MEDS: CEFAZOLIN SODIUM 2 GM in DEXTROSE 5%-WATER 100 ML IV SCH ×3 (06:05→21:31)
[2019-02-28] MEDS ORDERED: TRAMADOL HCL 50 MG TABLET PO PRN (06:54)
[2019-02-28] MEDS ORDERED: ACETAMINOPHEN 325 MG TABLET PO PRN (07:00)
[2019-02-28] MEDS ORDERED: OXYCODONE HCL IR 5 MG TABLET PO PRN (07:02)
--- NOTE | 2019-02-28 07:36 | PDOC PROGRESS REPORT ---
Subjective Subjective:: Patient doing well this morning. Pain well controlled. No new symptoms. Has not yet gotten out of bed. Reason For Visit: LEFT HIP FRACTURE, T2DM Physical Exam Vital Signs: Temp Pulse Resp BP Pulse Ox 98.4 F 111 H 18 125/57 L 93 02/27/19 22:30 02/27/19 22:30 02/27/19 22:30 02/27/19 22:30 02/27/19 22:30 Intake & Output 02/27/19 02/28/19 03/01/19 06:59 06:59 06:59 Intake Total 2126 2070 Output Total 2350 1250 Balance -224 820 Weight 88.6 kg 89.5 kg Physical Exam: General appearance: PRESENT: no acute distress, cooperative, well-nourished Head exam: PRESENT: atraumatic, normocephalic Eye exam: PRESENT: EOMI Ear exam: PRESENT: normal external ear exam Mouth exam: PRESENT: neck supple Neck exam: ABSENT: tracheal deviation Respiratory exam: PRESENT: symmetrical, unlabored. ABSENT: accessory muscle use, wheezes Pulses: PRESENT: normal radial pulses, normal dorsalis pedis pul Vascular exam: PRESENT: normal capillary refill GI/Abdominal exam: ABSENT: distended, firm Extremities exam: PRESENT: full ROM Musculoskeletal exam: PRESENT: full ROM, normal inspection Neurological exam: PRESENT: alert, awake, oriented to person, oriented to place, oriented to time Psychiatric exam: PRESENT: appropriate affect. ABSENT: agitated Focused psych exam: ABSENT: catatonic Skin exam: PRESENT: intact. ABSENT: dry All as above aside from that noted in the HPI and noted below: Left lower extremity neurovascularly intact. The wound is clean dry and intact. Pulses distally are 2+. Calf soft and nontender. She is moving her ankle and lower leg with full motor function. Sensation is grossly intact. Results Laboratory Results: 02/28/19 04:54 02/28/19 04:54 02/27/19 02/27/19 02/28/19 07:35 07:35 04:54 WBC 7.5 8.6 RBC 3.94 3.40 L Hgb 11.2 L 10.0 L Hct 34.0 L 29.1 L MCV 86 85 MCH 28.4 29.3 MCHC 32.9 34.3 RDW 12.9 13.1 Plt Count 199 166 Seg Neutrophils % 78.5 H 79.8 H Sodium 134.9 L Potassium 3.8 Chloride 99 Carbon Dioxide 28 Anion Gap 8 BUN 31 H Creatinine 0.89 Est GFR ( Amer) > 60 Glucose 134 H Calcium 8.8 Total Bilirubin 1.0 AST 38 H Alkaline Phosphatase 58 Total Protein 6.3 Albumin 3.3 L Triglycerides 49 Cholesterol 175.18 LDL Cholesterol Direct 78 VLDL Cholesterol 10.0 HDL Cholesterol 69 02/28/19 04:54 WBC RBC Hgb Hct MCV MCH MCHC RDW Plt Count Seg Neutrophils % Sodium 136.7 L Potassium 3.7 Chloride 103 Carbon Dioxide 25 Anion Gap 9 BUN 27 H Creatinine 0.93 Est GFR ( Amer) > 60 Glucose 118 H Calcium 8.4 Total Bilirubin 1.1 AST 147 H Alkaline Phosphatase 53 Total Protein 5.5 L Albumin 2.8 L Triglycerides Cholesterol LDL Cholesterol Direct VLDL Cholesterol HDL Cholesterol 02/26/19 09:42 Garcia Catheter Urine Culture - Final Klebsiella Pneumoniae 02/26/19 02/26/19 02/26/19 06:07 06:07 06:07 Creatine Kinase 54 CK-MB (CK-2) Troponin I < 0.012 NT-Pro-B Natriuret Pep 84 02/26/19 02/26/19 02/26/19 09:05 09:05 15:20 Creatine Kinase 55 111 CK-MB (CK-2) 0.79 Troponin I < 0.012 NT-Pro-B Natriuret Pep 02/26/19 02/26/19 02/26/19 15:20 21:04 21:04 Creatine Kinase 279 H CK-MB (CK-2) 1.60 3.33 Troponin I < 0.012 < 0.012 NT-Pro-B Natriuret Pep Impressions: Knee X-Ray 02/26/19 00:00 IMPRESSION: Mild degenerative joint changes. Fluoroscopy 02/27/19 00:00 IMPRESSION: IMAGE(S) OBTAINED DURING PROCEDURE. Hip X-Ray 02/27/19 00:00 IMPRESSION: Postsurgical changes from left hip arthroplasty. Small fracture about the proximal femur just superior to the lesser trochanter. COMMENT: Assessment & Plan - Diagnosis (1) Fx femoral neck Qualifiers: Encounter type: initial encounter Fracture type: closed Laterality: left Qualified Code(s): S72.002A - Fracture of unspecified part of neck of left femur, initial encounter for closed fracture Is this a current diagnosis for this admission?: Yes Plan: Status post left hip hemiarthroplasty postop day 1 -Recommend out of bed as much as possible, including assisted mobilization and ambulation with a walker. -Encourage PT to ambulate and training at activities of daily living -Weightbearing as tolerated -Aspirin for DVT prophylaxis -Multimodal pain control -Discharge when cleared by physical therapy and per primary -No dressing changes until seen in the office -I would like to see her in 7 to 10 days from the date of surgery - Complete 24 hourse of ancef (2) Urinary tract infection Qualifiers: Urinary tract infection type: site unspecified Hematuria presence: without hematuria Qualified Code(s): N39.0 - Urinary tract infection, site not specified Is this a current diagnosis for this admission?: Yes
[2019-02-28] MEDS: INSULIN LISPRO 100 UNIT/ML 3 ML VIAL SUBCUT SCH ×4 (09:00→21:35)
[2019-02-28] MEDS: CHOLECALCIFEROL (D3) 1,000 UNIT (25 MCG) TABLET PO SCH (09:03)
[2019-02-28] MEDS: METFORMIN HCL 500 MG TABLET PO SCH ×2 (09:03→16:04)
[2019-02-28] MEDS: PIOGLITAZONE HCL 30 MG TABLET PO SCH (09:03)
[2019-02-28] MEDS: ASPIRIN 325 MG TABLET PO SCH (09:03)
[2019-02-28] MEDS: OXYCODONE HCL IR 5 MG TABLET PO PRN (11:46)
[2019-02-28] MEDS: KETOROLAC TROMETHAMINE INJ/PF 30 MG/1 ML SDV IV SCH ×2 (13:53→21:29)
--- NOTE | 2019-02-28 14:26 | PDOC PROGRESS REPORT ---
Subjective Progress Note for:: 02/28/19 Subjective:: Patient seen by the bedside, the urine culture grew Klebsiella pneumonia presently on cefazolin, continue same treatment, she will need rehabilitation, question is with this be nursing rehabilitation or outpatient rehabilitation Reason For Visit: LEFT HIP FRACTURE, T2DM Physical Exam Vital Signs: Temp Pulse Resp BP Pulse Ox 98.4 F 85 18 126/61 H 99 02/28/19 08:07 02/28/19 08:07 02/28/19 08:07 02/28/19 08:07 02/28/19 08:07 Intake & Output 02/27/19 02/28/19 03/01/19 06:59 06:59 06:59 Intake Total 2126 2070 650 Output Total 2350 1250 Balance -224 820 650 Weight 88.6 kg 89.5 kg General appearance: PRESENT: no acute distress Eye exam: PRESENT: PERRLA Respiratory exam: PRESENT: clear to auscultation ifeoma Cardiovascular exam: PRESENT: +S1, +S2 GI/Abdominal exam: PRESENT: soft Results Laboratory Results: 02/28/19 04:54 02/28/19 04:54 02/28/19 02/28/19 04:54 04:54 WBC 8.6 RBC 3.40 L Hgb 10.0 L Hct 29.1 L MCV 85 MCH 29.3 MCHC 34.3 RDW 13.1 Plt Count 166 Seg Neutrophils % 79.8 H Sodium 136.7 L Potassium 3.7 Chloride 103 Carbon Dioxide 25 Anion Gap 9 BUN 27 H Creatinine 0.93 Est GFR ( Amer) > 60 Glucose 118 H Calcium 8.4 Total Bilirubin 1.1 AST 147 H Alkaline Phosphatase 53 Total Protein 5.5 L Albumin 2.8 L 02/26/19 09:42 Garcia Catheter Urine Culture - Final Klebsiella Pneumoniae 02/26/19 02/26/19 02/26/19 06:07 06:07 06:07 Creatine Kinase 54 CK-MB (CK-2) Troponin I < 0.012 NT-Pro-B Natriuret Pep 84 02/26/19 02/26/19 02/26/19 09:05 09:05 15:20 Creatine Kinase 55 111 CK-MB (CK-2) 0.79 Troponin I < 0.012 NT-Pro-B Natriuret Pep 02/26/19 02/26/19 02/26/19 15:20 21:04 21:04 Creatine Kinase 279 H CK-MB (CK-2) 1.60 3.33 Troponin I < 0.012 < 0.012 NT-Pro-B Natriuret Pep Impressions: Knee X-Ray 02/26/19 00:00 IMPRESSION: Mild degenerative joint changes. Fluoroscopy 02/27/19 00:00 IMPRESSION: IMAGE(S) OBTAINED DURING PROCEDURE. Hip X-Ray 02/27/19 00:00 IMPRESSION: Postsurgical changes from left hip arthroplasty. Small fracture about the proximal femur just superior to the lesser trochanter. COMMENT: Assessment & Plan - Diagnosis (1) Femoral neck fracture Qualifiers: Encounter type: initial encounter Fracture type: closed Laterality: right Qualified Code(s): S72.001A - Fracture of unspecified part of neck of right femur, initial encounter for closed fracture Is this a current diagnosis for this admission?: Yes (2) T2DM (type 2 diabetes mellitus) Qualifiers: Diabetes mellitus watermelon harvesting supervisor insulin use: with watermelon harvesting supervisor use Diabetes cirilo itus complication status: with neurologic complications Diabetes mellitus complication detail: with polyneuropathy Qualified Code(s): E11.42 - Type 2 diabetes mellitus with diabetic polyneuropathy; Z79.4 - exterminator (current) use of insulin Is this a current diagnosis for this admission?: Yes (3) Urinary tract infection due to Klebsiella species Is this a current diagnosis for this admission?: Yes Plan: Patient already started on cefazolin
[2019-02-28] MEDS: NORMAL SALINE 1000 ML 1,000 ML IV PRN (18:02)
[2019-02-28] MEDS: HALOPERIDOL 5 MG TABLET PO SCH (21:30)
[2019-02-28] MEDS: SIMVASTATIN 40 MG TABLET PO SCH (21:31)
[2019-02-28] MEDS: CITALOPRAM HYDROBROMIDE 20 MG TABLET PO SCH (21:32)
[2019-02-28] MEDS: BENZTROPINE MESYLATE 1 MG TABLET PO SCH (21:32)
[2019-02-28] MEDS: INSULIN GLARGINE,HUM.REC.ANLOG 1,000 UNIT/10 ML VIAL SUBCUT SCH (21:33)
[2019-03-01] MEDS: CEFAZOLIN SODIUM 2 GM in DEXTROSE 5%-WATER 100 ML IV SCH ×2 (06:20→14:14)
[2019-03-01] MEDS: KETOROLAC TROMETHAMINE INJ/PF 30 MG/1 ML SDV IV SCH ×3 (06:20→21:41)
[2019-03-01 06:49] LABS: ABSOLUTE EOSINOPHILS # (AUTO) 0.1 10^3/uL (0.0-0.6); ABSOLUTE LYMPHOCYTES (AUTO) 0.8 10^3/uL (0.5-4.7); ABSOLUTE MONOCYTES (AUTO) 0.9 10^3/uL (0.1-1.4); ABSOLUTE NEUT (AUTO) 6.2 10^3/uL (1.7-8.2); BASOPHILS % (AUTO) 0.3 % (0-2); HEMATOCRIT 28.4 % (36.0-47.0); HEMOGLOBIN 9.4 g/dL (12.0-15.5); LYMPHOCYTES % (AUTO) 10.1 % (13-45); MEAN CORPUSCULAR HEMOGLOBIN 28.5 pg (27.0-33.4); MEAN CORPUSCULAR HGB CONC 33.2 g/dL (32.0-36.0); MEAN CORPUSCULAR VOLUME 86 fl (80-97); MONOCYTES % (AUTO) 11.3 % (3-13); PLATELET COUNT 150 10^3/uL (150-450); RED BLOOD COUNT 3.31 10^6/uL (3.72-5.28); RED CELL DISTRIBUTION WIDTH 12.9 % (11.5-14.0); SEGMENTED NEUTROPHILS % (AUTO) 77.3 % (42-78); TOTAL CELLS COUNTED % (AUTO) 100 %
[2019-03-01 07:13] LABS: ALBUMIN 2.8 g/dL (3.5-5.0); ALKALINE PHOSPHATASE 111 U/L (38-126); ANION GAP 10 (5-19); ASPARTATE AMINO TRANSFERASE 202 U/L (14-36); BILIRUBIN,DIRECT 0.2 mg/dL (0.0-0.4); BILIRUBIN,TOTAL 1.1 mg/dL (0.2-1.3); BLOOD UREA NITROGEN 33 mg/dL (7-20); CALCIUM 8.3 mg/dL (8.4-10.2); CARBON DIOXIDE 23 mmol/L (22-30); CHLORIDE 101 mmol/L (98-107); GLUCOSE 203 mg/dL (75-110); POTASSIUM 3.8 mmol/L (3.6-5.0); TOTAL PROTEIN 5.4 g/dL (6.3-8.2)
[2019-03-01] MEDS: INSULIN LISPRO 100 UNIT/ML 3 ML VIAL SUBCUT SCH ×4 (08:44→21:55)
[2019-03-01] MEDS: METFORMIN HCL 500 MG TABLET PO SCH ×2 (08:44→16:33)
[2019-03-01] MEDS: ASPIRIN 325 MG TABLET PO SCH (10:34)
[2019-03-01] MEDS: CHOLECALCIFEROL (D3) 1,000 UNIT (25 MCG) TABLET PO SCH (10:34)
[2019-03-01] MEDS: OXYCODONE HCL IR 5 MG TABLET PO PRN (10:34)
[2019-03-01] MEDS: PIOGLITAZONE HCL 30 MG TABLET PO SCH (10:35)
[2019-03-01] MEDS: NORMAL SALINE 1000 ML 1,000 ML IV PRN (14:21)
--- NOTE | 2019-03-01 14:57 | PDOC PROGRESS REPORT ---
Subjective Subjective:: Patient seen and examined, no acute distress, doing very well and reports walking with minimal pain with assistance. She is very pleased with the outcome of surgery and her ability to ambulate. Reason For Visit: LEFT HIP FRACTURE, T2DM Physical Exam Vital Signs: Temp Pulse Resp BP Pulse Ox 98.0 F 92 16 101/50 L 98 03/01/19 11:35 03/01/19 11:35 03/01/19 11:35 03/01/19 11:35 03/01/19 11:35 Intake & Output 02/28/19 03/01/19 03/02/19 06:59 06:59 06:59 Intake Total 2070 1845 1000 Output Total 1250 800 Balance 820 1045 1000 Weight 89.5 kg 89.8 kg Physical Exam: General appearance: PRESENT: no acute distress, cooperative, well-nourished Head exam: PRESENT: atraumatic, normocephalic Eye exam: PRESENT: EOMI Ear exam: PRESENT: normal external ear exam Mouth exam: PRESENT: neck supple Neck exam: ABSENT: tracheal deviation Respiratory exam: PRESENT: symmetrical, unlabored. ABSENT: accessory muscle use, wheezes Pulses: PRESENT: normal radial pulses, normal dorsalis pedis pul Vascular exam: PRESENT: normal capillary refill GI/Abdominal exam: ABSENT: distended, firm Extremities exam: PRESENT: full ROM Musculoskeletal exam: PRESENT: full ROM, normal inspection Neurological exam: PRESENT: alert, awake, oriented to person, oriented to place, oriented to time Psychiatric exam: PRESENT: appropriate affect. ABSENT: agitated Focused psych exam: ABSENT: catatonic Skin exam: PRESENT: intact. ABSENT: dry All as above aside from that noted in the HPI and the following: Left lower extremity calves nontender soft, no acute swelling, pulses 2+, grossly neurovascular intact. The wound is clean dry and intact with scant proximal drainage. Results Laboratory Results: 03/01/19 06:29 03/01/19 06:29 03/01/19 03/01/19 06:29 06:29 WBC 8.0 RBC 3.31 L Hgb 9.4 L Hct 28.4 L MCV 86 MCH 28.5 MCHC 33.2 RDW 12.9 Plt Count 150 Seg Neutrophils % 77.3 Sodium 134.0 L Potassium 3.8 Chloride 101 Carbon Dioxide 23 Anion Gap 10 BUN 33 H Creatinine 0.95 Est GFR ( Amer) > 60 Glucose 203 H Calcium 8.3 L Total Bilirubin 1.1 AST 202 H Alkaline Phosphatase 111 Total Protein 5.4 L Albumin 2.8 L 02/26/19 02/26/19 02/26/19 06:07 06:07 06:07 Creatine Kinase 54 CK-MB (CK-2) Troponin I < 0.012 NT-Pro-B Natriuret Pep 84 02/26/19 02/26/19 02/26/19 09:05 09:05 15:20 Creatine Kinase 55 111 CK-MB (CK-2) 0.79 Troponin I < 0.012 NT-Pro-B Natriuret Pep 02/26/19 02/26/19 02/26/19 15:20 21:04 21:04 Creatine Kinase 279 H CK-MB (CK-2) 1.60 3.33 Troponin I < 0.012 < 0.012 NT-Pro-B Natriuret Pep Impressions: Knee X-Ray 02/26/19 00:00 IMPRESSION: Mild degenerative joint changes. Fluoroscopy 02/27/19 00:00 IMPRESSION: IMAGE(S) OBTAINED DURING PROCEDURE. Hip X-Ray 02/27/19 00:00 IMPRESSION: Postsurgical changes from left hip arthroplasty. Small fracture about the proximal femur just superior to the lesser trochanter. COMMENT: Assessment & Plan - Diagnosis (1) Fx femoral neck Qualifiers: Encounter type: initial encounter Fracture type: closed Laterality: left Qualified Code(s): S72.002A - Fracture of unspecified part of neck of left femur, initial encounter for closed fracture Is this a current diagnosis for this admission?: Yes Plan: Status post left hip hemiarthroplasty postoperative day #2. At this time she is orthopedically stable for discharge pending medical decision making -I would like to see her in my office on or before Monday the -She is to keep her dressing in place until office follow up, if it happens to fall off she is to avoid getting her incision wet -weight bearing as tolerated - PT/OT encourage out of bed -Ambulation with assistance, no precautions -DVT prophylaxis recommended aspirin for 6 weeks postoperatively -Recommend multimodal pain management to limit total narcotic use - Please have the patient follow with me at [address] [place] [address]. (2) Urinary tract infection Qualifiers: Urinary tract infection type: site unspecified Hematuria presence: without hematuria Qualified Code(s): N39.0 - Urinary tract infection, site not specified Is this a current diagnosis for this admission?: Yes
--- NOTE | 2019-03-01 18:19 | PDOC DISCHARGE SUMMARY ---
General - Admit/Disc Date/PCP Admission Date/Primary Care Provider: 02/26/19 07:49 ESVIN VITAL MD Discharge Date: 03/01/19 - Discharge Diagnosis (1) Femoral neck fracture Is this a current diagnosis for this admission?: Yes (2) T2DM (type 2 diabetes mellitus) Is this a current diagnosis for this admission?: Yes (3) Urinary tract infection due to Klebsiella species Is this a current diagnosis for this admission?: Yes - Additional Information Resuscitation Status: Full Code Prescriptions: Sulfamethoxazole/Trimethoprim [Bactrim Ds Tablet] 1 each PO BID #14 tablet Home Medications: Benztropine Mesylate [Benztropine Mesylate 0.5 mg Tablet] 0.5 mg PO QHS 02/26/19 Cholecalciferol (Vitamin D3) [Vitamin D3 1000 Unit Tablet] 1,000 unit PO DAILY 02/26/19 Citalopram Hydrobromide [Citalopram HBr] 10 mg PO QHS 02/26/19 Dapagliflozin Propanediol [Farxiga] 10 mg PO DAILY 02/26/19 Furosemide [Lasix 40 mg Tablet] 40 mg PO QAM 02/26/19 Haloperidol [Haldol 5 mg Tablet] 2.5 mg PO QHS 02/26/19 Insulin Glargine,Hum.rec.anlog [Lantus Insulin 100 Unit/1 ml 10 ml] 38 unit SUBCUT QHS 02/26/19 Insulin Lispro [Humalog Insulin 100 Unit/1 ml 3 ml Vial] 14 unit SUBCUT BIDBL 02/26/19 Insulin Lispro [Humalog Insulin 100 Unit/1 ml 3 ml Vial] 18 unit SUBCUT WSUPPER 02/26/19 Metformin HCl [Glucophage 500 mg Tablet] 500 mg PO BIDACBS 02/26/19 Pioglitazone HCl [Actos] 30 mg PO DAILY 02/26/19 Simvastatin [Zocor 40 mg Tablet] 40 mg PO QHS 02/26/19 Solifenacin Succinate [Vesicare] 10 mg PO DAILY 02/26/19 Sulfamethoxazole/Trimethoprim [Bactrim Ds Tablet] 1 each PO BID #14 tablet 03/01/19 History of Present Illness History of Present Illness: LAURA EDOUARD is a 63 year old female, She felt this morning and sustained fracture of the left hip joint, there was no antecedent loss of consciousness there was no chest pain , no syncope ,she tripped and missed her steps.She has insulin requiring diabetes mellitus. Based on the revised cardiac risk index score, she does not have coronary artery disease, no congestive heart failure, no chronic kidney disease with serum creatinine of more than 2, no CVA based on all these factors, the cardiovascular risk in the perioperative period is very low, she can proceed to surgery Hospital Course Hospital Course: She had left hip joint fracture, she was seen by Dr. Ambrocio orthopedic underwent left hemiarthroplasty.She also had Klebsiella UTI, pansensitive to all antibiotic. She was treated with IV cefazolin, this could be transitioned to p.o. Bactrim. I spoke to the business analyst consultant orthopedic, Dr. Ambrocio, in agreement that patient will be discharged home with outpatient physical therapy Physical Exam Vital Signs: Temp Pulse Resp BP Pulse Ox 98.4 F 95 16 94/45 L 100 03/01/19 15:56 03/01/19 15:56 03/01/19 11:35 03/01/19 15:56 03/01/19 15:56 Intake & Output 02/28/19 03/01/19 03/02/19 06:59 06:59 06:59 Intake Total 2070 1845 1340 Output Total 1250 800 100 Balance 820 1045 1240 Weight 89.5 kg 89.8 kg General appearance: PRESENT: no acute distress Head exam: PRESENT: atraumatic, normocephalic Eye exam: PRESENT: PERRLA Ear exam: PRESENT: normal external ear exam Mouth exam: PRESENT: moist, tongue midline Neck exam: PRESENT: full ROM Respiratory exam: PRESENT: clear to auscultation ifeoma Cardiovascular exam: PRESENT: RRR, +S1, +S2 Pulses: PRESENT: normal dorsalis pedis pul, +2 pedal pulses bilateral Vascular exam: PRESENT: normal capillary refill GI/Abdominal exam: PRESENT: normal bowel sounds, soft Rectal exam: PRESENT: deferred Neurological exam: PRESENT: alert, awake, oriented to person, oriented to place, oriented to time, oriented to situation, CN II-XII grossly intact Psychiatric exam: PRESENT: appropriate affect, normal mood Skin exam: PRESENT: dry, intact, warm Results Laboratory Results: 03/01/19 06:29 03/01/19 06:29 03/01/19 03/01/19 06:29 06:29 WBC 8.0 RBC 3.31 L Hgb 9.4 L Hct 28.4 L MCV 86 MCH 28.5 MCHC 33.2 RDW 12.9 Plt Count 150 Seg Neutrophils % 77.3 Sodium 134.0 L Potassium 3.8 Chloride 101 Carbon Dioxide 23 Anion Gap 10 BUN 33 H Creatinine 0.95 Est GFR ( Amer) > 60 Glucose 203 H Calcium 8.3 L Total Bilirubin 1.1 AST 202 H Alkaline Phosphatase 111 Total Protein 5.4 L Albumin 2.8 L 02/26/19 02/26/19 02/26/19 06:07 06:07 06:07 Creatine Kinase 54 CK-MB (CK-2) Troponin I < 0.012 NT-Pro-B Natriuret Pep 84 02/26/19 02/26/19 02/26/19 09:05 09:05 15:20 Creatine Kinase 55 111 CK-MB (CK-2) 0.79 Troponin I < 0.012 NT-Pro-B Natriuret Pep 02/26/19 02/26/19 02/26/19 15:20 21:04 21:04 Creatine Kinase 279 H CK-MB (CK-2) 1.60 3.33 Troponin I < 0.012 < 0.012 NT-Pro-B Natriuret Pep Impressions: Knee X-Ray 02/26/19 00:00 IMPRESSION: Mild degenerative joint changes. Fluoroscopy 02/27/19 00:00 IMPRESSION: IMAGE(S) OBTAINED DURING PROCEDURE. Hip X-Ray 02/27/19 00:00 IMPRESSION: Postsurgical changes from left hip arthroplasty. Small fracture about the proximal femur just superior to the lesser trochanter. COMMENT: Qualifiers - * PATIENT BEING DISCHARGED WITH ANY OF THE FOLLOWING DIAGNOSIS: No VTE patient discharged on overlapping Therapy?: No Reason(s) for not prescribing Overlap Therapy:: Not indicated Stroke Pt being discharged on Anti-thrombolytic therapy?: No Reason(s) for not prescribing Anti-thrombolytic therapy:: Not indicated Stroke Pt being discharged on Anti-coagulation therapy?: No Reason(s) for not prescribing Anti-coagulation therapy:: Not indicated Stroke Pt being discharged on Statins?: No Reason(s) for not prescribing Statins therapy:: Not indicated KS Pt being discharged on Aspirin therapy?: No Reason(s) for not prescribing Aspirin therapy:: Not indicated KS Pt being discharged on Statins?: No Reason(s) for not prescribing Statin therapy:: Not indicated KS Pt discharged ACEI/ARBS?: No Reason(s) for not prescribing ACEI/ARBS:: Not indicated Acute Heart Failure - Is this a Heart Failure Patient?: No Follow-up Appointment scheduled within 7 days?: Yes
[2019-03-01] MEDS ORDERED: ONDANSETRON HCL INJ/PF 4 MG/2 ML SDV IV PRN (19:30)
[2019-03-01] MEDS: HALOPERIDOL 5 MG TABLET PO SCH (21:40)
[2019-03-01] MEDS: CITALOPRAM HYDROBROMIDE 20 MG TABLET PO SCH (21:40)
[2019-03-01] MEDS: BENZTROPINE MESYLATE 1 MG TABLET PO SCH (21:40)
[2019-03-01] MEDS: SIMVASTATIN 40 MG TABLET PO SCH (21:40)
[2019-03-01] MEDS: INSULIN GLARGINE,HUM.REC.ANLOG 1,000 UNIT/10 ML VIAL SUBCUT SCH (21:41)
[2019-03-02] MEDS: KETOROLAC TROMETHAMINE INJ/PF 30 MG/1 ML SDV IV SCH ×3 (06:15→22:45)
[2019-03-02] MEDS: NORMAL SALINE 1000 ML 1,000 ML IV PRN ×2 (06:15→19:38)
[2019-03-02] MEDS: INSULIN LISPRO 100 UNIT/ML 3 ML VIAL SUBCUT SCH ×4 (07:15→22:47)
[2019-03-02] MEDS ORDERED: OXYCODONE HCL IR 5 MG TABLET PO PRN (09:00)
[2019-03-02] MEDS: ASPIRIN 325 MG TABLET PO SCH (09:28)
[2019-03-02] MEDS: CHOLECALCIFEROL (D3) 1,000 UNIT (25 MCG) TABLET PO SCH (09:28)
[2019-03-02] MEDS: METFORMIN HCL 500 MG TABLET PO SCH ×2 (09:28→17:07)
[2019-03-02] MEDS ORDERED: NORMAL SALINE 250 ML IV ONE (09:30)
[2019-03-02] MEDS: PIOGLITAZONE HCL 30 MG TABLET PO SCH (10:00)
[2019-03-02] MEDS ORDERED: DOCUSATE SODIUM 100 MG CAPSULE PO SCH (10:00)
[2019-03-02] MEDS ORDERED: NA PHOS,M-B/NA PHOS,DI-BA (ADULT) 133 ML ENEMA PR ONE (10:00)
[2019-03-02] MEDS ORDERED: NORMAL SALINE 1000 ML 1,000 ML IV ONE ×3 (11:06→12:33)
--- NOTE | 2019-03-02 11:07 | PDOC PROGRESS REPORT ---
Subjective Subjective:: Patient seen and examined this morning. Overnight the nurse reported that she had nausea and vomiting. Also that her urine has become darker. She has been on continuous IV fluids. She has had decreased appetite. This time she reports mild nausea but no overt abdominal pain. She has no new complaints regarding her left hip. Has been out of bed and has minimal pain. Has not been taking much narcotics mostly Tylenol and Toradol. Reason For Visit: LEFT HIP FRACTURE, T2DM Physical Exam Vital Signs: Temp Pulse Resp BP Pulse Ox 98.7 F 95 17 81/31 L 100 03/02/19 07:04 03/02/19 07:04 03/02/19 07:04 03/02/19 07:04 03/02/19 07:04 Intake & Output 03/01/19 03/02/19 03/03/19 06:59 06:59 06:59 Intake Total 1845 2700 Output Total 800 500 Balance 1045 2200 Weight 89.8 kg 95.9 kg Physical Exam: General appearance: PRESENT: no acute distress, cooperative, well-nourished Head exam: PRESENT: atraumatic, normocephalic Eye exam: PRESENT: EOMI Ear exam: PRESENT: normal external ear exam Mouth exam: PRESENT: neck supple Neck exam: ABSENT: tracheal deviation Respiratory exam: PRESENT: symmetrical, unlabored. ABSENT: accessory muscle use, wheezes Pulses: PRESENT: normal radial pulses, normal dorsalis pedis pul Vascular exam: PRESENT: normal capillary refill GI/Abdominal exam: Abdomen is soft nontender. Obese Extremities exam: PRESENT: full ROM Musculoskeletal exam: PRESENT: full ROM, normal inspection Neurological exam: PRESENT: alert, awake, oriented to person, oriented to place, oriented to time Psychiatric exam: PRESENT: appropriate affect. ABSENT: agitated Focused psych exam: ABSENT: catatonic Skin exam: PRESENT: intact. ABSENT: dry All as above aside from that noted in the HPI and the following: Dressing is clean dry and intact. Left lower extremity is without swelling calf tenderness, pulses are 2+ and the extremity is grossly neurovascular intact Results Laboratory Results: 03/01/19 06:29 03/01/19 06:29 02/26/19 02/26/19 02/26/19 06:07 06:07 06:07 Creatine Kinase 54 CK-MB (CK-2) Troponin I < 0.012 NT-Pro-B Natriuret Pep 84 02/26/19 02/26/19 02/26/19 09:05 09:05 15:20 Creatine Kinase 55 111 CK-MB (CK-2) 0.79 Troponin I < 0.012 NT-Pro-B Natriuret Pep 02/26/19 02/26/19 02/26/19 15:20 21:04 21:04 Creatine Kinase 279 H CK-MB (CK-2) 1.60 3.33 Troponin I < 0.012 < 0.012 NT-Pro-B Natriuret Pep Impressions: Knee X-Ray 02/26/19 00:00 IMPRESSION: Mild degenerative joint changes. Fluoroscopy 02/27/19 00:00 IMPRESSION: IMAGE(S) OBTAINED DURING PROCEDURE. Hip X-Ray 02/27/19 00:00 IMPRESSION: Postsurgical changes from left hip arthroplasty. Small fracture about the proximal femur just superior to the lesser trochanter. COMMENT: Assessment & Plan - Diagnosis (1) Fx femoral neck Qualifiers: Encounter type: initial encounter Fracture type: closed Laterality: left Qualified Code(s): S72.002A - Fracture of unspecified part of neck of left fem ur, initial encounter for closed fracture Is this a current diagnosis for this admission?: Yes Plan: No current changes to prior plan aside from working up her constipation and making sure that she is stable for discharge. (2) Urinary tract infection Qualifiers: Urinary tract infection type: site unspecified Hematuria presence: without hematuria Qualified Code(s): N39.0 - Urinary tract infection, site not specified Is this a current diagnosis for this admission?: Yes (5) Constipation Is this a current diagnosis for this admission?: Yes Plan: Patient has had nausea and vomiting, no bowel movement for 4 days -Discussed case with nursing staff as well as general surgery consult. -Orthostatic vital signs ordered -Abdominal x-ray ordered -Plan to continue limitation of narcotic use -Fluid bolus pending -Repeat UA pending -Will follow -Stool softener and enema recently delivered
--- NOTE | 2019-03-02 12:08 | RADIOLOGY REPORT (SQ) ---
EXAM DESCRIPTION: ABDOMEN 2 VIEWS COMPLETED DATE/TIME: 03/02/2019 11:37 am REASON FOR STUDY: flat/upright. portable. hip fx, abd pain, nausea. COMPARISON: None. NUMBER OF VIEWS: Two views. TECHNIQUE: Supine and erect/decubitus radiographic images of the abdomen acquired. LIMITATIONS: Body habitus. FINDINGS: FREE AIR: None. No abnormal gas collections. LUNG BASES: Clear. BOWEL GAS PATTERN: Gas-filled loops of nondilated large and small bowel. CALCIFICATIONS: No suspicious calcifications. SOFT TISSUES: No gross mass or suggestion of organomegaly. HARDWARE: None in the abdomen. BONES: No acute fracture. No worrisome bone lesions. OTHER: No other significant finding. IMPRESSION: Ileus. TECHNICAL DOCUMENTATION: JOB ID: [id number] [employer]- All Rights Reserved Reading location - IP/workstation name: [email or web address]
--- NOTE | 2019-03-02 12:47 | PDOC PROGRESS REPORT ---
Subjective Progress Note for:: 03/02/19 Subjective:: Patient's discharge to SNF not possible due to her medical insurance limitation. She is currently undergoing PT session to improve function to point of discharge home with CUSTODIAL OPERATIONS MANAGER and PT services. Reason For Visit: LEFT HIP FRACTURE, T2DM Physical Exam Vital Signs: Temp Pulse Resp BP Pulse Ox 97.9 F 98 17 88/37 L 98 03/02/19 11:12 03/02/19 11:12 03/02/19 07:04 03/02/19 11:12 03/02/19 11:12 Intake & Output 03/01/19 03/02/19 03/03/19 06:59 06:59 06:59 Intake Total 1845 2700 Output Total 800 500 Balance 1045 2200 Weight 89.8 kg 95.9 kg General appearance: PRESENT: no acute distress, mild distress Head exam: PRESENT: atraumatic, normocephalic Eye exam: PRESENT: conjunctiva pink. ABSENT: scleral icterus Ear exam: PRESENT: normal external ear exam Mouth exam: PRESENT: moist Respiratory exam: PRESENT: clear to auscultation ifeoma Cardiovascular exam: PRESENT: RRR. ABSENT: diastolic murmur, rubs, systolic murmur Vascular exam: ABSENT: pallor GI/Abdominal exam: PRESENT: normal bowel sounds, soft. ABSENT: distended, guarding, mass, organolmegaly, rebound, tenderness Rectal exam: PRESENT: deferred Extremities exam: PRESENT: tenderness - right hip surgical site. ABSENT: pedal edema Musculoskeletal exam: PRESENT: ambulatory - with PT personnel Neurological exam: PRESENT: alert, awake, oriented to person, oriented to place, oriented to time, oriented to situation, CN II-XII grossly intact. ABSENT: motor sensory deficit Psychiatric exam: PRESENT: appropriate affect, normal mood. ABSENT: homicidal ideation, suicidal ideation Skin exam: PRESENT: dry, warm Results Laboratory Results: 03/01/19 06:29 03/01/19 06:29 02/26/19 02/26/19 02/26/19 06:07 06:07 06:07 Creatine Kinase 54 CK-MB (CK-2) Troponin I < 0.012 NT-Pro-B Natriuret Pep 84 02/26/19 02/26/19 02/26/19 09:05 09:05 15:20 Creatine Kinase 55 111 CK-MB (CK-2) 0.79 Troponin I < 0.012 NT-Pro-B Natriuret Pep 02/26/19 02/26/19 02/26/19 15:20 21:04 21:04 Creatine Kinase 279 H CK-MB (CK-2) 1.60 3.33 Troponin I < 0.012 < 0.012 NT-Pro-B Natriuret Pep Impressions: Knee X-Ray 02/26/19 00:00 IMPRESSION: Mild degenerative joint changes. Fluoroscopy 02/27/19 00:00 IMPRESSION: IMAGE(S) OBTAINED DURING PROCEDURE. Hip X-Ray 02/27/19 00:00 IMPRESSION: Postsurgical changes from left hip arthroplasty. Small fracture about the proximal femur just superior to the lesser trochanter. COMMENT: Abdomen X-Ray 03/02/19 00:00 IMPRESSION: Ileus. Assessment & Plan - Diagnosis (1) Femoral neck fracture Qualifiers: Encounter type: initial encounter Fracture type: closed Laterality: right Qualified Code(s): S72.001A - Fracture of unspecified part of neck of right femur, initial encounter for closed fracture Is this a current diagnosis for this admission?: Yes Plan: Continue current management with physical therapy intervention. (2) Constipation Qualifiers: Constipation type: unspecified constipation type Qualified Code(s): K59.00 - Constipation, unspecified Is this a current diagnosis for this admission?: Yes Plan: Continue Fleet enema. Maintain on Colace 100 mg p.o bid. Start on Senokot 200 mg p.o qhs. (3) Hypotension Qualifiers: Hypotension type: orthostatic hypotension Qualified Code(s): I95.1 - Orthostatic hypotension Is this a current diagnosis for this admission?: Yes Plan: Infuse 1 liter normal saline bolus and increase maintenance rate to 100 mL/hour. (4) T2DM (type 2 diabetes mellitus) Qualifiers: Diabetes mellitus director long term care insulin use: with nursing home use Diabetes mellitus complication status: with neurologic complications Diabetes mellitus complication detail: with polyneuropathy Qualified Code(s): E11.42 - Type 2 diabetes mellitus with diabetic polyneuropathy; Z79.4 - supervisor intermediates (current) use of insulin Is this a current diagnosis for this admission?: Yes Plan: Continue current medication and dietary management. (5) Urinary tract infection due to Klebsiella species Is this a current diagnosis for this admission?: Yes Plan: Completed antibiotic therapy. repeat U/A with microscopy in view of her hypotension episode. - Time Time Spent with patient: 25-34 minutes Medications reviewed and adjusted accordingly: Yes Anticipated discharge: Home with Homehealth Within: Other - Inpatient Certification Based on my medical assessment, after consideration of the patient's comorbidities, presenting symptoms, or acuity I expect that the services needed warrant INPATIENT care.: Yes I certify that my determination is in accordance with my understanding of Medicare's requirements for reasonable and necessary INPATIENT services [42 CFR 412.3e].: Yes Medical Necessity: Significant Comorbidiites Make Outpatient Treatment Too Risky, Need Close Monitoring Due to Risk of Patient Decompensation, Need For IV Fluids, Need for Pain Control, Risk of Complication if Not Cared For in Hospital, Risk of Diagnosis Which Will Require Inpatient Eval/Care/Monitoring Post Hospital Care: D/C Fountain Worker Documentation - Plan Summary Plan Summary: D/C Dilaudid. Start on Senokot 2 tablets p.o qhs. IV fluid N/S 1000 ml bolus and increase rate to 100 mL/hour. Continue all other current medication management. Resume oral feeding.
[2019-03-02] MEDS: SENNOSIDES/DOCUSATE 8.6-50 MG 1 EACH TABLET PO SCH (13:55)
[2019-03-02] MEDS: DOCUSATE SODIUM 100 MG CAPSULE PO SCH (17:10)
--- NOTE | 2019-03-02 19:11 | PDOC CONSULTATION ---
Consultation Consult Date: 03/02/19 Provider Consulted: SURGICAL SURGICALIST Consult reason:: Abdominal pain, nausea, vomiting History of Present Illness Admission Date/PCP: 02/26/19 07:49 ESVIN VITAL MD History of Present Illness: LAURA EDOUARD is a 63 year old female status post hip arthroplasty. The patient reports that she has not had a bowel movement in 4 days. She passes minimal amounts of flatus. She began experiencing distention this morning, with nausea and vomiting after eating. The patient reports that she does not have severe amounts of pain, and has not taken very many narcotics. She denies melena, hematochezia, hematemesis. She denies fevers or chills. She does report orthostasis, weakness, fatigue, malaise, and dizziness. Past Medical History Cardiac Medical History: Reports: Hyperlipidema, Hypertension Denies: Coronary Artery Disease, Myocardial Infarction Pulmonary Medical History: Denies: Asthma, Bronchitis, Chronic Obstructive Pulmonary Disease (COPD), Pneumonia Neurological Medical History: Denies: Seizures Endocrine Medical History: Reports: Diabetes Mellitus Type 2 Musculoskeltal Medical History: Reports: Arthritis Hematology: Reports: Anemia Past Surgical History Past Surgical History: Reports: Hip Replacement Denies: Pacemaker Social History Lives with: Family Smoking Status: Former Smoker Hx Recreational Drug Use: No - Advance Directive Resuscitation Status: Full Code Family History Family History: None Parental Family History Reviewed: Yes Children Family History Reviewed: Yes Sibling(s) Family History Reviewed.: Yes Medication/Allergy Home Medications: Benztropine Mesylate [Benztropine Mesylate 0.5 mg Tablet] 0.5 mg PO QHS 02/26/19 Cholecalciferol (Vitamin D3) [Vitamin D3 1000 Unit Tablet] 1,000 unit PO DAILY 02/26/19 Citalopram Hydrobromide [Citalopram HBr] 10 mg PO QHS 02/26/19 Dapagliflozin Propanediol [Farxiga] 10 mg PO DAILY 02/26/19 Furosemide [Lasix 40 mg Tablet] 40 mg PO QAM 02/26/19 Haloperidol [Haldol 5 mg Tablet] 2.5 mg PO QHS 02/26/19 Insulin Glargine,Hum.rec.anlog [Lantus Insulin 100 Unit/1 ml 10 ml] 38 unit SUBCUT QHS 02/26/19 Insulin Lispro [Humalog Insulin 100 Unit/1 ml 3 ml Vial] 14 unit SUBCUT BIDBL 02/26/19 Insulin Lispro [Humalog Insulin 100 Unit/1 ml 3 ml Vial] 18 unit SUBCUT WSUPPER 02/26/19 Metformin HCl [Glucophage 500 mg Tablet] 500 mg PO BIDACBS 02/26/19 Pioglitazone HCl [Actos] 30 mg PO DAILY 02/26/19 Simvastatin [Zocor 40 mg Tablet] 40 mg PO QHS 02/26/19 Solifenacin Succinate [Vesicare] 10 mg PO DAILY 02/26/19 Sulfamethoxazole/Trimethoprim [Bactrim Ds Tablet] 1 each PO BID #14 tablet 03/01/19 Allergies/Adverse Reactions: No Known Allergies Allergy (Unverified 08/22/11 11:10) Review of Systems Constitutional: PRESENT: fatigue, weakness, other - Orthostasis. ABSENT: chills, fever(s) Ears: ABSENT: hearing changes Nose, Mouth, and Throat: ABSENT: sore throat Cardiovascular: ABSENT: chest pain Respiratory: ABSENT: cough, dyspnea Gastrointestinal: PRESENT: bloating, nausea, vomiting. ABSENT: abdominal pain, hematemesis, hematochezia, melena Genitourinary: ABSENT: dysuria Musculoskeletal: ABSENT: back pain Integumentary: ABSENT: pruritus, rash Neurological: PRESENT: dizziness. ABSENT: confusion, convulsions Psychiatric: ABSENT: anxiety, depression Endocrine: ABSENT: cold intolerance, heat intolerance Hematologic/Lymphatic: ABSENT: easy bleeding, easy bruising Physical Exam Vital Signs: Temp Pulse Resp BP Pulse Ox 97.9 F 98 17 88/37 L 98 03/02/19 11:12 03/02/19 11:12 03/02/19 07:04 03/02/19 11:12 03/02/19 11:12 Intake & Output 03/01/19 03/02/19 03/03/19 06:59 06:59 06:59 Intake Total 1845 2700 1250 Output Total 800 500 Balance 1045 2200 1250 Weight 89.8 kg 95.9 kg General appearance: PRESENT: no acute distress, cooperative Head exam: PRESENT: atraumatic, normocephalic Eye exam: PRESENT: EOMI, PERRLA. ABSENT: scleral icterus Mouth exam: PRESENT: moist, neck supple Neck exam: ABSENT: tenderness, thyromegaly, tracheal deviation Respiratory exam: PRESENT: clear to auscultation ifeoma, unlabored. ABSENT: chest wall tenderness, tachypnea, wheezes Cardiovascular exam: PRESENT: RRR Pulses: PRESENT: normal radial pulses GI/Abdominal exam: PRESENT: distended, soft. ABSENT: firm, guarding, tenderness Rectal exam: PRESENT: deferred Extremities exam: ABSENT: clubbing Neurological exam: PRESENT: alert, awake, oriented to person, oriented to place, oriented to time, oriented to situation, CN II-XII grossly intact Psychiatric exam: ABSENT: agitated, anxious, depressed Focused psych exam: ABSENT: delusional Skin exam: ABSENT: cyanosis, erythema, jaundice Results Laboratory Results: 03/01/19 06:29 03/01/19 06:29 02/26/19 02/26/19 02/26/19 06:07 06:07 06:07 Creatine Kinase 54 CK-MB (CK-2) Troponin I < 0.012 NT-Pro-B Natriuret Pep 84 02/26/19 02/26/19 02/26/19 09:05 09:05 15:20 Creatine Kinase 55 111 CK-MB (CK-2) 0.79 Troponin I < 0.012 NT-Pro-B Natriuret Pep 02/26/19 02/26/19 02/26/19 15:20 21:04 21:04 Creatine Kinase 279 H CK-MB (CK-2) 1.60 3.33 Troponin I < 0.012 < 0.012 NT-Pro-B Natriuret Pep Impressions: Knee X-Ray 02/26/19 00:00 IMPRESSION: Mild degenerative joint changes. Fluoroscopy 02/27/19 00:00 IMPRESSION: IMAGE(S) OBTAINED DURING PROCEDURE. Hip X-Ray 02/27/19 00:00 IMPRESSION: Postsurgical changes from left hip arthroplasty. Small fracture about the proximal femur just superior to the lesser trochanter. COMMENT: Abdomen X-Ray 03/02/19 00:00 IMPRESSION: Ileus. Assessment & Plan - Diagnosis (1) Postoperative ileus Is this a current diagnosis for this admission?: Yes (2) Acute on chronic blood loss anemia Is this a current diagnosis for this admission?: Yes - Plan Summary Plan Summary: This is a 63-year-old female with abdominal distention, nausea, vomiting, borderline hypotension, and poor urine output this morning. The patient has had 150 cc over 6 hours of urine output. Her BUN is elevated. This, coupled with fatigue, weakness, orthostasis, and borderline hypotension, I believe she is suffering from acute on chronic anemia (symptomatic). I have discussed this with the patient. She reports that she is a Yarsanism and will not take blood products. In light of this, I will provide her with 2 L normal saline bolus. Her blood (for lab work) should be drawn with pediatric tubes. I recommend monitoring the situation closely. Patient may require further crystalloid infusion, or possibly hetastarch. Patient also reports abdominal distention and lack of bowel movement. I have ordered a flat and upright abdominal series. She has mildly dilated loops of small bowel, and mildly dilated a sending and transverse colon. This is most consistent with postoperative ileus. I will increase her Colace to 200 mg p.o. twice daily. The patient received a fleets enema this morning, with good results. Hopefully this will resolve her nausea and vomiting. Repeat KUB x-ray tomorrow. Will follow.
[2019-03-02 21:42] LABS: APPEARANCE,URINE CLOUDY; BILIRUBIN,URINE NEGATIVE (NEGATIVE); GLUCOSE, URINE 50 mg/dL (NEGATIVE); KETONES,URINE NEGATIVE (NEGATIVE); LEUKOCYTE ESTERASE,URINE LARGE (NEGATIVE); NITRITE,URINE NEGATIVE (NEGATIVE); PROTEIN,URINE NEGATIVE (NEGATIVE); URINE SPECIFIC GRAVITY 1.013; UROBILINOGEN,URINE NEGATIVE mg/dL (<2.0)
[2019-03-02 21:43] LABS: COLOR,URINE DARK YELLOW
[2019-03-02] MEDS: HALOPERIDOL 5 MG TABLET PO SCH (22:46)
[2019-03-02] MEDS: CITALOPRAM HYDROBROMIDE 20 MG TABLET PO SCH (22:46)
[2019-03-02] MEDS: BENZTROPINE MESYLATE 1 MG TABLET PO SCH (22:47)
[2019-03-02] MEDS: SIMVASTATIN 40 MG TABLET PO SCH (22:47)
[2019-03-02] MEDS: INSULIN GLARGINE,HUM.REC.ANLOG 1,000 UNIT/10 ML VIAL SUBCUT SCH (22:48)
[2019-03-03] MEDS: NORMAL SALINE 1000 ML 1,000 ML IV PRN ×2 (05:12→14:38)
[2019-03-03] MEDS: KETOROLAC TROMETHAMINE INJ/PF 30 MG/1 ML SDV IV SCH ×3 (05:12→22:44)
[2019-03-03] MEDS: INSULIN LISPRO 100 UNIT/ML 3 ML VIAL SUBCUT SCH ×4 (08:15→22:54)
[2019-03-03] MEDS: PIOGLITAZONE HCL 30 MG TABLET PO SCH (09:05)
[2019-03-03] MEDS: ASPIRIN 325 MG TABLET PO SCH (09:05)
[2019-03-03] MEDS: METFORMIN HCL 500 MG TABLET PO SCH ×2 (09:05→16:55)
[2019-03-03] MEDS: CHOLECALCIFEROL (D3) 1,000 UNIT (25 MCG) TABLET PO SCH (09:06)
[2019-03-03] MEDS: DOCUSATE SODIUM 100 MG CAPSULE PO SCH ×2 (09:06→17:07)
[2019-03-03] MEDS: SENNOSIDES/DOCUSATE 8.6-50 MG 1 EACH TABLET PO SCH (09:06)
--- NOTE | 2019-03-03 09:45 | RADIOLOGY REPORT (SQ) ---
EXAM DESCRIPTION: KUB/ABDOMEN (SINGLE VIEW) COMPLETED DATE/TIME: 03/03/2019 7:49 am REASON FOR STUDY: Ileus COMPARISON: Previous day. NUMBER OF VIEWS: One view. TECHNIQUE: Supine radiographic image of the abdomen acquired. LIMITATIONS: None. FINDINGS: BOWEL GAS PATTERN: Gas-filled loops of nondilated large and small bowel. No progression. CALCIFICATIONS: No suspicious calcifications. SOFT TISSUES: No gross mass or suggestion of organomegaly. HARDWARE: None. BONES: No bone lesions or fracture. OTHER: No other significant finding. IMPRESSION: Ileus. No significant change. Reading location - IP/workstation name: [email or web address]
--- NOTE | 2019-03-03 10:33 | PDOC PROGRESS REPORT ---
Subjective Progress Note for:: 03/03/19 Subjective:: Patient has satisfactory bowel movement since last clinical evaluation by me. No abdominal pain but reported intermittent nausea without vomiting. Oral intake limited due to nausea and there is reported episode of hypoglycemia. Reason For Visit: LEFT HIP FRACTURE, T2DM Physical Exam Vital Signs: Temp Pulse Resp BP Pulse Ox 98.2 F 70 16 123/64 96 03/02/19 23:53 03/02/19 23:53 03/02/19 23:53 03/02/19 23:53 03/02/19 23:53 Intake & Output 03/02/19 03/03/19 03/04/19 06:59 06:59 06:59 Intake Total 2700 2977 Output Total 500 Balance 2200 2977 Weight 95.9 kg 92.1 kg Physical Exam: General appearance: PRESENT: no acute distress, mild distress Head exam: PRESENT: atraumatic, normocephalic Eye exam: PRESENT: conjunctiva pink. ABSENT: pallor, scleral icterus Ear exam: PRESENT: normal external ear exam Mouth exam: PRESENT: moist Respiratory exam: PRESENT: clear to auscultation ifeoma Cardiovascular exam: PRESENT: RRR. ABSENT: diastolic murmur, rubs, systolic murmur GI/Abdominal exam: PRESENT: normal bowel sounds, soft. ABSENT: distended, guarding, mass, organomegaly, rebound, tenderness Rectal exam: PRESENT: deferred Extremities exam: PRESENT: tenderness - right hip surgical site. ABSENT: pedal edema Musculoskeletal exam: PRESENT: ambulatory - with PT personnel Neurological exam: PRESENT: alert, awake, oriented to person, oriented to place, oriented to time, oriented to situation, CN II-XII grossly intact. ABSENT: motor sensory deficit Psychiatric exam: PRESENT: appropriate affect, normal mood. ABSENT: homicidal ideation, suicidal ideation Skin exam: PRESENT: dry, warm Results Laboratory Results: 03/01/19 06:29 03/01/19 06:29 03/02/19 21:20 Urine Color DARK YELLOW Urine Appearance CLOUDY Urine pH 5.0 Ur Specific [place] 1.013 Urine Protein NEGATIVE Urine Glucose (UA) 50 H Urine Ketones NEGATIVE Urine Blood MODERATE H Urine Nitrite NEGATIVE Ur Leukocyte Esterase LARGE H Urine WBC (Auto) 131 Urine RBC (Auto) 20 02/26/19 09:05 Blood Blood Culture - Final NO GROWTH IN 5 DAYS 02/26/19 02/26/1919 06:07 06:07 06:07 Creatine Kinase 54 CK-MB (CK-2) Troponin I < 0.012 NT-Pro-B Natriuret Pep 84 02/26/19 02/26/19 02/26/19 09:05 09:05 15:20 Creatine Kinase 55 111 CK-MB (CK-2) 0.79 Troponin I < 0.012 NT-Pro-B Natriuret Pep 02/26/19 02/26/19 02/26/19 15:20 21:04 21:04 Creatine Kinase 279 H CK-MB (CK-2) 1.60 3.33 Troponin I < 0.012 < 0.012 NT-Pro-B Natriuret Pep Impressions: Knee X-Ray 02/26/19 00:00 IMPRESSION: Mild degenerative joint changes. Fluoroscopy 02/27/19 00:00 IMPRESSION: IMAGE(S) OBTAINED DURING PROCEDURE. Hip X-Ray 02/27/19 00:00 IMPRESSION: Postsurgical changes from left hip arthroplasty. Small fracture about the proximal femur just superior to the lesser trochanter. COMMENT: Abdomen X-Ray 03/02/19 00:00 IMPRESSION: Ileus. KUB X-Ray 03/03/19 06:00 IMPRESSION: Ileus. No significant change. Assessment & Plan - Diagnosis (1) Femoral neck fracture Qualifiers: Encounter type: initial encounter Fracture type: closed Laterality: right Qualified Code(s): S72.001A - Fracture of unspecified part of neck of right femur, initial encounter for closed fracture Is this a current diagnosis for this admission?: Yes (2) Constipation Qualifiers: Constipation type: unspecified constipation type Qualified Code(s): K59.00 - Constipation, unspecified Is this a current diagnosis for this admission?: Yes (3) Hypotension Qualifiers: Hypotension type: orthostatic hypotension Qualified Code(s): I95.1 - Ortho static hypotension Is this a current diagnosis for this admission?: Yes (4) T2DM (type 2 diabetes mellitus) Qualifiers: Diabetes mellitus design supervisor insulin use: with design supervisor use Diabetes mellitus complication status: with neurologic complications Diabetes mellitus complication detail: with polyneuropathy Qualified Code(s): 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; Z79.4 - FDC (current) use of insulin Is this a current diagnosis for this admission?: Yes (5) Urinary tract infection due to Klebsiella species Is this a current diagnosis for this admission?: Yes - Time Time Spent with patient: 25-34 minutes Medications reviewed and adjusted accordingly: Yes Anticipated discharge: Home with Homehealth Within: Other - Inpatient Certification Based on my medical assessment, after consideration of the patient's comorbidities, presenting symptoms, or acuity I expect that the services needed warrant INPATIENT care.: Yes I certify that my determination is in accordance with my understanding of Medicare's requirements for reasonable and necessary INPATIENT services [42 CFR 412.3e].: Yes Medical Necessity: Significant Comorbidiites Make Outpatient Treatment Too Risky, Need Close Monitoring Due to Risk of Patient Decompensation, Need For IV Fluids, Risk of Complication if Not Cared For in Hospital, Risk of Diagnosis Which Will Require Inpatient Eval/Care/Monitoring Post Hospital Care: D/C Surgical Pathologist Documentation - Plan Summary Plan Summary: Continue current medical management and PT intervention. Possible d/c home with OPERATIONS AGENT services very soon.
--- NOTE | 2019-03-03 11:34 | PDOC PROGRESS REPORT ---
Subjective Progress Note for:: 03/03/19 Subjective:: The patient is reporting the stools and flatus, tolerating p.o. well, she is denying abdominal pain Reason For Visit: LEFT HIP FRACTURE, T2DM Physical Exam Vital Signs: Temp Pulse Resp BP Pulse Ox 98.2 F 70 16 123/64 96 03/02/19 23:53 03/02/19 23:53 03/02/19 23:53 03/02/19 23:53 03/02/19 23:53 Intake & Output 03/02/19 03/03/19 03/04/19 06:59 06:59 06:59 Intake Total 2700 2977 Output Total 500 Balance 2200 2977 Weight 95.9 kg 92.1 kg General appearance: PRESENT: no acute distress GI/Abdominal exam: PRESENT: soft - Noted distended, not tender without peritoneal signs Results Laboratory Results: 03/01/19 06:29 03/01/19 06:29 03/02/19 21:20 Urine Color DARK YELLOW Urine Appearance CLOUDY Urine pH 5.0 Ur Specific [place] 1.013 Urine Protein NEGATIVE Urine Glucose (UA) 50 H Urine Ketones NEGATIVE Urine Blood MODERATE H Urine Nitrite NEGATIVE Ur Leukocyte Esterase LARGE H Urine WBC (Auto) 131 Urine RBC (Auto) 20 02/26/19 10:09 Blood Blood Culture - Final NO GROWTH IN 5 DAYS 02/26/19 09:05 Blood Blood Culture - Final NO GROWTH IN 5 DAYS 02/26/19 02/26/19 02/26/19 06:07 06:07 06:07 Creatine Kinase 54 CK-MB (CK-2) Troponin I < 0.012 NT-Pro-B Natriuret Pep 84 02/26/19 02/26/19 02/26/19 09:05 09:05 15:20 Creatine Kinase 55 111 CK-MB (CK-2) 0.79 Troponin I < 0.012 NT-Pro-B Natriuret Pep 02/26/19 02/26/19 02/26/19 15:20 21:04 21:04 Creatine Kinase 279 H CK-MB (CK-2) 1.60 3.33 Troponin I < 0.012 < 0.012 NT-Pro-B Natriuret Pep Impressions: Knee X-Ray 02/26/19 00:00 IMPRESSION: Mild degenerative joint changes. Fluoroscopy 02/27/19 00:00 IMPRESSION: IMAGE(S) OBTAINED DURING PROCEDURE. Hip X-Ray 02/27/19 00:00 IMPRESSION: Postsurgical changes from left hip arthroplasty. Small fracture about the proximal femur just superior to the lesser trochanter. COMMENT: Abdomen X-Ray 03/02/19 00:00 IMPRESSION: Ileus. KUB X-Ray 03/03/19 06:00 IMPRESSION: Ileus. No significant change. Assessment & Plan - Diagnosis (1) Postoperative ileus Is this a current diagnosis for this admission?: Yes - Plan Summary Plan Summary: Assessment: Postoperative ileus, resolving Latus and stools present P.o. tolerated Abdominal obstructive series demonstrates still distended small bowel loops, despite the clinical improvement Plan: Continue clear liquids diet We will follow the patient 1 more day tomorrow
--- NOTE | 2019-03-03 13:55 | PDOC PROGRESS REPORT ---
Subjective Subjective:: Seen and examined this morning. Doing well and reports multiple bowel movements. Nausea is improving. Pain is minimal. Reason For Visit: LEFT HIP FRACTURE, T2DM Physical Exam Vital Signs: Temp Pulse Resp BP Pulse Ox 97.8 F 94 23 H 88/42 L 97 03/03/19 07:15 03/03/19 07:15 03/03/19 07:15 03/03/19 07:15 03/03/19 07:15 Intake & Output 03/02/19 03/03/19 03/04/19 06:59 06:59 06:59 Intake Total 2700 2977 225 Output Total 500 Balance 2200 2977 225 Weight 95.9 kg 92.1 kg Physical Exam: General appearance: PRESENT: no acute distress, cooperative, well-nourished Head exam: PRESENT: atraumatic, normocephalic Eye exam: PRESENT: EOMI Ear exam: PRESENT: normal external ear exam Mouth exam: PRESENT: neck supple Neck exam: ABSENT: tracheal deviation Respiratory exam: PRESENT: symmetrical, unlabored. ABSENT: accessory muscle use, wheezes Pulses: PRESENT: normal radial pulses, normal dorsalis pedis pul Vascular exam: PRESENT: normal capillary refill GI/Abdominal exam: ABSENT: distended, firm Extremities exam: PRESENT: full ROM Musculoskeletal exam: PRESENT: full ROM, normal inspection Neurological exam: PRESENT: alert, awake, oriented to person, oriented to place, oriented to time Psychiatric exam: PRESENT: appropriate affect. ABSENT: agitated Focused psych exam: ABSENT: catatonic Skin exam: PRESENT: intact. ABSENT: dry All as above aside from that noted in the HPI and the following: Wound evaluated. A fresh dressing is currently in place with scant drainage. Lower extremity otherwise neurovascular intact. Nursing removed and wound appears healthy. Results Laboratory Results: 03/01/19 06:29 03/01/19 06:29 03/02/19 21:20 Urine Color DARK YELLOW Urine Appearance CLOUDY Urine pH 5.0 Ur Specific [place] 1.013 Urine Protein NEGATIVE Urine Glucose (UA) 50 H Urine Ketones NEGATIVE Urine Blood MODERATE H Urine Nitrite NEGATIVE Ur Leukocyte Esterase LARGE H Urine WBC (Auto) 131 Urine RBC (Auto) 20 02/26/19 10:09 Blood Blood Culture - Final NO GROWTH IN 5 DAYS 02/26/19 09:05 Blood Blood Culture - Final NO GROWTH IN 5 DAYS 02/26/19 02/26/1902/26/19 06:07 06:07 06:07 Creatine Kinase 54 CK-MB (CK-2) Troponin I < 0.012 NT-Pro-B Natriuret Pep 84 02/26/19 02/26/19 02/26/19 09:05 09:05 15:20 Creatine Kinase 55 111 CK-MB (CK-2) 0.79 Troponin I < 0.012 NT-Pro-B Natriuret Pep 02/26/19 02/26/19 02/26/19 15:20 21:04 21:04 Creatine Kinase 279 H CK-MB (CK-2) 1.60 3.33 Troponin I < 0.012 < 0.012 NT-Pro-B Natriuret Pep Impressions: Knee X-Ray 02/26/19 00:00 IMPRESSION: Mild degenerative joint changes. Fluoroscopy 02/27/19 00:00 IMPRESSION: IMAGE(S) OBTAINED DURING PROCEDURE. Hip X-Ray 02/27/19 00:00 IMPRESSION: Postsurgical changes from left hip arthroplasty. Small fracture about the proximal femur just superior to the lesser trochanter. COMMENT: Abdomen X-Ray 03/02/19 00:00 IMPRESSION: Ileus. KUB X-Ray 03/03/19 06:00 IMPRESSION: Ileus. No significant change. Assessment & Plan - Diagnosis (1) Fx femoral neck Qualifiers: Encounter type: initial encounter Fracture type: closed Laterality: left Qualified Code(s): S72.002A - Fracture of unspecified part of neck of left femur, initial encounter for closed fracture Is this a current diagnosis for this admission?: Yes Plan: Currently the patient has improved in regards to her postoperative ileus. -Continue plans as previously instructed for postoperative left hip hemiarthroplasty. -For to see the patient in my office by Monday. -Discharge planning per case management and physical therapy. Family is concerned that the patient may not be able to be taken well care of at home. There urging SNF or rehab placement -The dressing was removed during assessment today and appeared clean and healing well with Dermabond covering it and protecting. The wound was wiped with alcohol swabs and then Betadine swab was applied prior to reapplication of an occlusive dressing. she is to keep that dressing in place until follow-up (2) Urinary tract infection Qualifiers: Urinary tract infection type: site unspecified Hematuria presence: without hematuria Qualified Code(s): N39.0 - Urinary tract infection, site not specified Is this a current diagnosis for this admission?: Yes (4) Hypotension Qualifiers: Hypotension type: orthostatic hypotension Qualified Code(s): I95.1 - Orthostatic hypotension Is this a current diagnosis for this admission?: Yes (5) Constipation Qualifiers: Constipation type: unspecified constipation type Qualified Code(s): K59.00 - Constipation, unspecified Is this a current diagnosis for this admission?: Yes
[2019-03-03] MEDS: BENZTROPINE MESYLATE 1 MG TABLET PO SCH (22:43)
[2019-03-03] MEDS: HALOPERIDOL 5 MG TABLET PO SCH (22:44)
[2019-03-03] MEDS: CITALOPRAM HYDROBROMIDE 20 MG TABLET PO SCH (22:44)
[2019-03-03] MEDS: SIMVASTATIN 40 MG TABLET PO SCH (22:44)
[2019-03-03] MEDS: INSULIN GLARGINE,HUM.REC.ANLOG 1,000 UNIT/10 ML VIAL SUBCUT SCH (22:55)
[2019-03-04] MEDS: KETOROLAC TROMETHAMINE INJ/PF 30 MG/1 ML SDV IV SCH ×3 (06:00→21:42)
[2019-03-04] MEDS: NORMAL SALINE 1000 ML 1,000 ML IV PRN ×2 (06:00→19:49)
[2019-03-04] MEDS: INSULIN LISPRO 100 UNIT/ML 3 ML VIAL SUBCUT SCH ×4 (08:11→21:45)
[2019-03-04] MEDS: METFORMIN HCL 500 MG TABLET PO SCH ×2 (08:26→16:55)
[2019-03-04] MEDS: CHOLECALCIFEROL (D3) 1,000 UNIT (25 MCG) TABLET PO SCH (09:57)
[2019-03-04] MEDS: PIOGLITAZONE HCL 30 MG TABLET PO SCH (09:57)
[2019-03-04] MEDS: DOCUSATE SODIUM 100 MG CAPSULE PO SCH ×2 (09:57→17:35)
[2019-03-04] MEDS: ASPIRIN 325 MG TABLET PO SCH (09:57)
[2019-03-04] MEDS: SENNOSIDES/DOCUSATE 8.6-50 MG 1 EACH TABLET PO SCH (09:57)
--- NOTE | 2019-03-04 12:07 | PDOC PROGRESS REPORT ---
Subjective Progress Note for:: 03/04/19 Subjective:: Patient comfortable, denies abdominal pain, reports flatus and stools, tolerating p.o. well. Reason For Visit: LEFT HIP FRACTURE, T2DM Physical Exam Vital Signs: Temp Pulse Resp BP Pulse Ox 98.0 F 88 16 99/53 L 98 03/04/19 08:00 03/04/19 08:00 03/04/19 08:00 03/04/19 08:00 03/04/19 08:00 Intake & Output 03/03/19 03/04/19 03/05/19 06:59 06:59 06:59 Intake Total 2977 2664 Output Total 400 Balance 2977 2264 Weight 92.1 kg 98.7 kg General appearance: PRESENT: no acute distress GI/Abdominal exam: PRESENT: soft, other - Not distended, not tender Results Laboratory Results: 03/01/19 06:29 03/01/19 06:29 02/26/19 13:46 Nasopharyngeal Gram Stain - Final 02/26/19 13:46 Nasopharyngeal Nasopharyngeal Culture - Final NORMAL SONIA 02/26/19 10:09 Blood Blood Culture - Final NO GROWTH IN 5 DAYS 02/26/19 09:05 Blood Blood Culture - Final NO GROWTH IN 5 DAYS 02/26/19 02/26/19 02/26/19 06:07 06:07 06:07 Creatine Kinase 54 CK-MB (CK-2) Troponin I < 0.012 NT-Pro-B Natriuret Pep 84 02/26/19 02/26/19 02/26/19 09:05 09:05 15:20 Creatine Kinase 55 111 CK-MB (CK-2) 0.79 Troponin I < 0.012 NT-Pro-B Natriuret Pep 02/26/19 02/26/19 02/26/19 15:20 21:04 21:04 Creatine Kinase 279 H CK-MB (CK-2) 1.60 3.33 Troponin I < 0.012 < 0.012 NT-Pro-B Natriuret Pep Impressions: Knee X-Ray 02/26/19 00:00 IMPRESSION: Mild degenerative joint changes. Fluoroscopy 02/27/19 00:00 IMPRESSION: IMAGE(S) OBTAINED DURING PROCEDURE. Hip X-Ray 02/27/19 00:00 IMPRESSION: Postsurgical changes from left hip arthroplasty. Small fracture about the proximal femur just superior to the lesser trochanter. COMMENT: Abdomen X-Ray 03/02/19 00:00 IMPRESSION: Ileus. KUB X-Ray 03/03/19 06:00 IMPRESSION: Ileus. No significant change. Assessment & Plan - Diagnosis (1) Postoperative ileus Is this a current diagnosis for this admission?: Yes - Plan Summary Plan Summary: Assessment: Patient tolerating p.o. well Stools x2 during the past 24 hours, flatus present Abdomen soft Plan: Resolving postop ileus I will sign off. Please call us back with questions.
[2019-03-04] MEDS: CITALOPRAM HYDROBROMIDE 20 MG TABLET PO SCH (21:43)
[2019-03-04] MEDS: HALOPERIDOL 5 MG TABLET PO SCH (21:43)
[2019-03-04] MEDS: BENZTROPINE MESYLATE 1 MG TABLET PO SCH (21:44)
[2019-03-04] MEDS: SIMVASTATIN 40 MG TABLET PO SCH (21:44)
[2019-03-04] MEDS: INSULIN GLARGINE,HUM.REC.ANLOG 1,000 UNIT/10 ML VIAL SUBCUT SCH (21:46)
--- NOTE | 2019-03-04 23:39 | PDOC PROGRESS REPORT ---
Subjective Progress Note for:: 03/04/19 Subjective:: Patient seen by the bedside, she was supposed to be discharged home on Monday but she was very weak with no energy not able to ambulate, the discharge plan was held Reason For Visit: LEFT HIP FRACTURE, T2DM Physical Exam Vital Signs: Temp Pulse Resp BP Pulse Ox 98.6 F 88 16 114/66 100 03/04/19 19:22 03/04/19 19:22 03/04/19 19:22 03/04/19 19:22 03/04/19 19:22 Intake & Output 03/03/19 03/04/19 03/05/19 06:59 06:59 06:59 Intake Total 2977 2664 1596 Output Total 400 Balance 2977 2264 1596 Weight 92.1 kg 98.7 kg General appearance: PRESENT: no acute distress Eye exam: PRESENT: PERRLA Respiratory exam: PRESENT: clear to auscultation ifeoma Cardiovascular exam: PRESENT: +S1, +S2 GI/Abdominal exam: PRESENT: soft Neurological exam: PRESENT: alert Results Laboratory Results: 03/01/19 06:29 03/01/19 06:29 02/26/19 02/26/19 02/26/19 06:07 06:07 06:07 Creatine Kinase 54 CK-MB (CK-2) Troponin I < 0.012 NT-Pro-B Natriuret Pep 84 02/26/19 02/26/19 02/26/19 09:05 09:05 15:20 Creatine Kinase 55 111 CK-MB (CK-2) 0.79 Troponin I < 0.012 NT-Pro-B Natriuret Pep 02/26/19 02/26/19 02/26/19 15:20 21:04 21:04 Creatine Kinase 279 H CK-MB (CK-2) 1.60 3.33 Troponin I < 0.012 < 0.012 NT-Pro-B Natriuret Pep Impressions: Knee X-Ray 02/26/19 00:00 IMPRESSION: Mild degenerative joint changes. Fluoroscopy 02/27/19 00:00 IMPRESSION: IMAGE(S) OBTAINED DURING PROCEDURE. Hip X-Ray 02/27/19 00:00 IMPRESSION: Postsurgical changes from left hip arthroplasty. Small fracture about the proximal femur just superior to the lesser trochanter. COMMENT: Abdomen X-Ray 03/02/19 00:00 IMPRESSION: Ileus. KUB X-Ray 03/03/19 06:00 IMPRESSION: Ileus. No significant change. Assessment & Plan - Diagnosis (1) Femoral neck fracture Qualifiers: Encounter type: initial encounter Fracture type: closed Laterality: right Qualified Code(s): S72.001A - Fracture of unspecified part of neck of right femur, initial encounter for closed fracture Is this a current diagnosis for this admission?: Yes Plan: Patient will be discharged home tomorrow with therapy (2) T2DM (type 2 diabetes mellitus) Qualifiers: Diabetes mellitus fci insulin use: with ferry terminal agent use Diabetes mellitus complication status: with neurologic complications Diabetes mellitus complication detail: with polyneuropathy Qualified Code(s): E11.42 - Type 2 diabetes mellitus with diabetic polyneuropathy; Z79.4 - salvage determiner (current) use of insulin Is this a current diagnosis for this admission?: Yes (3) Urinary tract infection due to Klebsiella species Is this a current diagnosis for this admission?: Yes
[2019-03-05] MEDS: KETOROLAC TROMETHAMINE INJ/PF 30 MG/1 ML SDV IV SCH (05:48)
[2019-03-05] MEDS: INSULIN LISPRO 100 UNIT/ML 3 ML VIAL SUBCUT SCH ×4 (08:28→22:38)
[2019-03-05] MEDS: METFORMIN HCL 500 MG TABLET PO SCH ×2 (08:47→15:37)
[2019-03-05] MEDS: DOCUSATE SODIUM 100 MG CAPSULE PO SCH ×2 (10:06→17:34)
[2019-03-05] MEDS: PIOGLITAZONE HCL 30 MG TABLET PO SCH (10:25)
[2019-03-05] MEDS: ASPIRIN 325 MG TABLET PO SCH (10:26)
[2019-03-05] MEDS: CHOLECALCIFEROL (D3) 1,000 UNIT (25 MCG) TABLET PO SCH (10:26)
[2019-03-05] MEDS: SENNOSIDES/DOCUSATE 8.6-50 MG 1 EACH TABLET PO SCH (10:26)
--- NOTE | 2019-03-05 22:36 | PDOC DISCHARGE SUMMARY ---
General - Admit/Disc Date/PCP Admission Date/Primary Care Provider: 02/26/19 07:49 ESVIN VITAL MD Discharge Date: 03/05/19 - Discharge Diagnosis (1) Femoral neck fracture Is this a current diagnosis for this admission?: Yes (2) T2DM (type 2 diabetes mellitus) Is this a current diagnosis for this admission?: Yes (3) Urinary tract infection due to Klebsiella species Is this a current diagnosis for this admission?: Yes - Additional Information Resuscitation Status: Full Code Home Medications: Benztropine Mesylate [Benztropine Mesylate 0.5 mg Tablet] 0.5 mg PO QHS 02/26/19 Cholecalciferol (Vitamin D3) [Vitamin D3 1000 Unit Tablet] 1,000 unit PO DAILY 02/26/19 Citalopram Hydrobromide [Citalopram HBr] 10 mg PO QHS 02/26/19 Dapagliflozin Propanediol [Farxiga] 10 mg PO DAILY 02/26/19 Furosemide [Lasix 40 mg Tablet] 40 mg PO QAM 02/26/19 Haloperidol [Haldol 5 mg Tablet] 2.5 mg PO QHS 02/26/19 Insulin Glargine,Hum.rec.anlog [Lantus Insulin 100 Unit/1 ml 10 ml] 38 unit SUBCUT QHS 02/26/19 Insulin Lispro [Humalog Insulin (Lispro) 100 unit/mL] 14 unit SUBCUT BIDBL 02/26/19 Insulin Lispro [Humalog Insulin (Lispro) 100 unit/mL] 18 unit SUBCUT WSUPPER 02/26/19 Metformin HCl [Glucophage 500 mg Tablet] 500 mg PO BIDACBS 02/26/19 Pioglitazone HCl [Actos] 30 mg PO DAILY 02/26/19 Simvastatin [Zocor 40 mg Tablet] 40 mg PO QHS 02/26/19 Solifenacin Succinate [Vesicare] 10 mg PO DAILY 02/26/19 History of Present Illness History of Present Illness: LAURA EDOUARD is a 63 year old female, She felt this morning and sustained fracture of the left hip joint, there was no antecedent loss of consciousness there was no chest pain , no syncope ,she tripped and missed her steps.She has insulin requiring diabetes mellitus. Based on the revised cardiac risk index score, she does not have coronary artery disease, no congestive heart failure, no chronic kidney disease with serum creatinine of more than 2, no CVA based on all these factors, the cardiovascular risk in the perioperative period is very low, she can proceed to surgery Hospital Course Hospital Course: Patient was admitted for the management of fracture of the left hip joint, she was evaluated by orthopedic surgeon of the [facility] she underwent a hemiarthroplasty of the hip joint. Hospital course was complicated with Klebsiella UTI requiring IV antibiotic Ancef ,ultimately this was transitioned to p.o. Bactrim. She was supposed to be discharged a couple of days ago but this was delayed because of patient inability to ambulate there was also associated low blood pressure, she required IV fluid therapy she was seen by PT and ultimately discharge home today. Physical Exam Vital Signs: Temp Pulse Resp BP Pulse Ox 98.3 F 90 16 123/83 94 03/05/19 19:19 03/05/19 19:19 03/05/19 19:19 03/05/19 19:19 03/05/19 19:19 Intake & Output 03/04/19 03/05/19 03/06/19 06:59 06:59 06:59 Intake Total 2664 1995 67 Output Total 400 Balance 2264 1995 67 Weight 98.7 kg 98.1 kg General appearance: PRESENT: no acute distress, well-developed, well-nourished Head exam: PRESENT: atraumatic, normocephalic Eye exam: PRESENT: conjunctiva pink, EOMI, PERRLA Ear exam: PRESENT: normal external ear exam Mouth exam: PRESENT: moist, tongue midline Neck exam: PRESENT: full ROM Cardiovascular exam: PRESENT: RRR, +S1, +S2 Pulses: PRESENT: normal dorsalis pedis pul, +2 pedal pulses bilateral Vascular exam: PRESENT: normal capillary refill GI/Abdominal exam: PRESENT: normal bowel sounds, soft Rectal exam: PRESENT: deferred Neurological exam: PRESENT: alert, awake, oriented to person, oriented to place, oriented to time, oriented to situation, CN II-XII grossly intact Psychiatric exam: PRESENT: appropriate affect, normal mood Skin exam: PRESENT: dry, intact, warm Results Laboratory Results: 03/01/19 06:29 03/01/19 06:29 02/26/19 02/26/19 02/26/19 06:07 06:07 06:07 Creatine Kinase 54 CK-MB (CK-2) Troponin I < 0.012 NT-Pro-B Natriuret Pep 84 02/26/19 02/26/19 02/26/19 09:05 09:05 15:20 Creatine Kinase 55 111 CK-MB (CK-2) 0.79 Troponin I < 0.012 NT-Pro-B Natriuret Pep 02/26/19 02/26/19 02/26/19 15:20 21:04 21:04 Creatine Kinase 279 H CK-MB (CK-2) 1.60 3.33 Troponin I < 0.012 < 0.012 NT-Pro-B Natriuret Pep Impressions: Knee X-Ray 02/26/19 00:00 IMPRESSION: Mild degenerative joint changes. Fluoroscopy 02/27/19 00:00 IMPRESSION: IMAGE(S) OBTAINED DURING PROCEDURE. Hip X-Ray 02/27/19 00:00 IMPRESSION: Postsurgical changes from left hip arthroplasty. Small fracture about the proximal femur just superior to the lesser trochanter. COMMENT: Abdomen X-Ray 03/02/19 00:00 IMPRESSION: Ileus. KUB X-Ray 03/03/19 06:00 IMPRESSION: Ileus. No significant change. Qualifiers - * PATIENT BEING DISCHARGED WITH ANY OF THE FOLLOWING DIAGNOSIS: No VTE patient discharged on overlapping Therapy?: No Reason(s) for not prescribing Overlap Therapy:: Not indicated Stroke Pt being discharged on Anti-thrombolytic therapy?: No Reason(s) for not prescribing Anti-thrombolytic therapy:: Not indicated Stroke Pt being discharged on Anti-coagulation therapy?: No Reason(s) for not prescribing Anti-coagulation therapy:: Not indicated Stroke Pt being discharged on Statins?: No Reason(s) for not prescribing Statins therapy:: Not indicated TN Pt being discharged on Aspirin therapy?: No Reason(s) for not prescribing Aspirin therapy:: Not indicated TN Pt being discharged on Statins?: No Reason(s) for not prescribing Statin therapy:: Not indicated TN Pt discharged ACEI/ARBS?: No Reason(s) for not prescribing ACEI/ARBS:: Not indicated Acute Heart Failure - Is this a Heart Failure Patient?: No Follow-up Appointment scheduled within 7 days?: Yes
[2019-03-05] MEDS: INSULIN GLARGINE,HUM.REC.ANLOG 1,000 UNIT/10 ML VIAL SUBCUT SCH (22:38)
[2019-03-05] MEDS: SIMVASTATIN 40 MG TABLET PO SCH (22:39)
[2019-03-05] MEDS: HALOPERIDOL 5 MG TABLET PO SCH (22:39)
[2019-03-05] MEDS: BENZTROPINE MESYLATE 1 MG TABLET PO SCH (22:39)
[2019-03-05] MEDS: CITALOPRAM HYDROBROMIDE 20 MG TABLET PO SCH (22:39)
[2019-03-05] MEDS: OXYCODONE HCL IR 5 MG TABLET PO PRN (22:46)
[2019-03-06] MEDS: OXYCODONE HCL IR 5 MG TABLET PO PRN (06:14)
[2019-03-06] MEDS: INSULIN LISPRO 100 UNIT/ML 3 ML VIAL SUBCUT SCH (08:34)
[2019-03-06] MEDS: DOCUSATE SODIUM 100 MG CAPSULE PO SCH (09:53)
[2019-03-06] MEDS: SENNOSIDES/DOCUSATE 8.6-50 MG 1 EACH TABLET PO SCH (09:53)
[2019-03-06] MEDS ORDERED: SULFAMETHOXAZOLE/TRIMETHOPRIM 800-160 MG TABLET PO SCH (10:00)
[2019-03-06] MEDS: ASPIRIN 325 MG TABLET PO SCH (11:07)
[2019-03-06] MEDS: PIOGLITAZONE HCL 30 MG TABLET PO SCH (11:07)
[2019-03-06] MEDS: CHOLECALCIFEROL (D3) 1,000 UNIT (25 MCG) TABLET PO SCH (11:07)
[2019-03-06 11:29] VITALS: BP 124/84
== END 2019-03-06 12:39 | disposition home health service (06) | DRG 470 ==
LOC: ER 05:56 → EH 07:49 → 4N 09:25
PROVIDERS: ADMIT Internal Medicine; ATTEND Internal Medicine
PROC: 0SRS0JA Replacement of Left Hip Joint, Femoral Surface with Synthetic Substitute, Uncemented, Open Approach (ICD-10-PCS; principal; 2019-02-27 13:15)
DX: S72.002A Fracture of unspecified part of neck of left femur, initial encounter for closed fracture (principal); N39.0 Urinary tract infection, site not specified; K56.7 Ileus, unspecified; D62 Acute posthemorrhagic anemia; W19.XXXA Unspecified fall, initial encounter; B96.1 Klebsiella pneumoniae [K. pneumoniae] as the cause of diseases classified elsewhere; E78.5 Hyperlipidemia, unspecified; I10 Essential (primary) hypertension; E11.42 Type 2 diabetes mellitus with diabetic polyneuropathy; E78.00 Pure hypercholesterolemia, unspecified; K59.00 Constipation, unspecified; I95.1 Orthostatic hypotension; Z53.1 Procedure and treatment not carried out because of patient's decision for reasons of belief and group pressure; Z79.899 Other long term (current) drug therapy; Z79.4 Long term (current) use of insulin; Z87.891 Personal history of nicotine dependence
CPT/HCPCS: 01230; 36415; 74018; 74019; 80048; 80053; 80061; 80076; 80307; 81001; 82140; 82150; 82550; 82553; 82962; 83036; 83690; 83735; 83880; 84100; 84439; 84443; 84484; 85025; 85610; 85730; 87040; 87070; 87086; 87088; 87186; 87205; 93005; 93010; 96374; 99285; J0690; J0696; J1170; J1580; J1815; J1885; J2250; J2704; J3010; J3370; J3490; J7030; J7050; J7060

== ENCOUNTER 2019-03-08 13:15 | Inpatient (IN) | payer MEDICAID ==
--- NOTE | 2019-03-08 13:50 | ER Document Report ---
ED Medical Screen (RME) - General Chief Complaint: Diarrhea Stated Complaint: DIARRHEA Time Seen by Provider: 03/08/19 13:47 Primary Care Provider: ESVIN VITAL MD [Primary Care Provider] - Follow up as needed Mode of Arrival: Wheelchair Information source: Patient Notes: 63-year-old female presented to ED for complaint of diarrhea. She states she was in the hospital for 2-week and was just discharged on Monday. She states while she was in the hospital they gave her stool softeners and enemas. She states she was in the hospital for broken hip. She states she had about 6 or 7 stools today is just running. She states she does not think she is taking any counter stool softeners or laxatives. She is alert oriented respirations regular and unlabored speaking in full sentences. She states she did vomit once last week but has not vomited since then. I have greeted and performed a rapid initial assessment of this patient. A comprehensive ED assessment and evaluation of the patient, analysis of test results and completion of medical decision making process will be conducted by an additional ED providers. TRAVEL OUTSIDE OF THE [place] IN LAST 30 DAYS: No - Related Data Allergies/Adverse Reactions: No Known Allergies Allergy (Verified 03/08/19 13:17) Past Medical History - Past Medical History Cardiac Medical History: Reports: Hx Hypercholesterolemia, Hx Hypertension Denies: Hx Coronary Artery Disease, Hx Heart Attack Pulmonary Medical History: Denies: Hx Asthma, Hx Bronchitis, Hx COPD, Hx Pneumonia Neurological Medical History: Denies: Hx Cerebrovascular Accident, Hx Seizures Endocrine Medical History: Reports: Hx Diabetes Mellitus Type 2 Musculoskeltal Medical History: Reports Hx Arthritis Past Surgical History: Reports: Hx Breast Surgery - breast bx. Denies: Hx Pacemaker - Immunizations Immunizations up to date: No Hx Diphtheria, Pertussis, Tetanus Vaccination: No - unknown Physical Exam - Vital signs Vitals: Temp Pulse Resp BP Pulse Ox 99.2 F 91 20 134/63 H 97 03/08/19 13:31 03/08/19 13:31 03/08/19 13:31 03/08/19 13:31 03/08/19 13:31 Course - Vital Signs Vital signs: Temp Pulse Resp BP Pulse Ox 99.2 F 91 20 134/63 H 97 03/08/19 13:31 03/08/19 13:31 03/08/19 13:31 03/08/19 13:31 03/08/19 13:31 Doctor's Discharge - Discharge Referrals: ESVIN VITAL MD [Primary Care Provider] - Follow up as needed
[2019-03-08 15:22] LABS: ABSOLUTE BASOPHILS # (AUTO) 0.1 10^3/uL (0.0-0.2); ABSOLUTE EOSINOPHILS # (AUTO) 0.1 10^3/uL (0.0-0.6); ABSOLUTE LYMPHOCYTES (AUTO) 1.6 10^3/uL (0.5-4.7); ABSOLUTE MONOCYTES (AUTO) 1.2 10^3/uL (0.1-1.4); ABSOLUTE NEUT (AUTO) 13.4 10^3/uL (1.7-8.2); BASOPHILS % (AUTO) 0.6 % (0-2); EOSINOPHILS % (AUTO) 0.4 % (0-6); HEMATOCRIT 22.2 % (36.0-47.0); MEAN CORPUSCULAR HEMOGLOBIN 28.1 pg (27.0-33.4); MEAN CORPUSCULAR HGB CONC 33.1 g/dL (32.0-36.0); MEAN CORPUSCULAR VOLUME 85 fl (80-97); MONOCYTES % (AUTO) 7.1 % (3-13); PLATELET COUNT 434 10^3/uL (150-450); RED BLOOD COUNT 2.61 10^6/uL (3.72-5.28); RED CELL DISTRIBUTION WIDTH 14.4 % (11.5-14.0); SEGMENTED NEUTROPHILS % (AUTO) 81.9 % (42-78); TOTAL CELLS COUNTED % (AUTO) 100 %; WHITE BLOOD COUNT 16.4 10^3/uL (4.0-10.5)
[2019-03-08 15:27] LABS: INTERNATIONAL RATION (INR) 1.12; PROTHROMBIN TIME 14.5 SEC (11.4-15.4)
[2019-03-08 15:30] LABS: HEMOGLOBIN 7.3 g/dL (12.0-15.5)
[2019-03-08 15:39] LABS: ALBUMIN 2.6 g/dL (3.5-5.0); ALKALINE PHOSPHATASE 139 U/L (38-126); ANION GAP 9 (5-19); ASPARTATE AMINO TRANSFERASE 33 U/L (14-36); BILIRUBIN,DIRECT 0.2 mg/dL (0.0-0.4); BILIRUBIN,TOTAL 0.8 mg/dL (0.2-1.3); BLOOD UREA NITROGEN 17 mg/dL (7-20); CARBON DIOXIDE 24 mmol/L (22-30); CHLORIDE 106 mmol/L (98-107); GLUCOSE 145 mg/dL (75-110); POTASSIUM 3.9 mmol/L (3.6-5.0); TOTAL PROTEIN 5.6 g/dL (6.3-8.2)
--- NOTE | 2019-03-08 20:14 | ER Document Report ---
ED GI/ - General Chief Complaint: Diarrhea Stated Complaint: DIARRHEA Time Seen by Provider: 03/08/19 13:47 Primary Care Provider: ESVIN VITAL MD [Primary Care Provider] - Follow up as needed Mode of Arrival: Wheelchair Notes: 63-year-old female with recent left hip fracture status post repair on 02/27/2019 with discharge from the hospital on 03/06/2019 presents to the emergency depar tment with chief complaint of diarrhea. She states while she was in the hospital they gave her stool softeners and enemas. She states that her stool is just running and she has had 6 or 7 episodes today. Patient denies any fevers or chills, denies any nausea or vomiting, does complain of lightheadedness and weakness, denies any acute shortness of breath or chest pain, denies any urinary symptoms but states that her urine does look red like there is blood in it, denies any warmth or pain out of proportion at her surgical site, no other complaints TRAVEL OUTSIDE OF THE [place] IN LAST 30 DAYS: No - Related Data Allergies/Adverse Reactions: No Known Allergies Allergy (Verified 03/08/19 13:17) Past Medical History - General Information source: Patient - Social History Smoking Status: Former Smoker Frequency of alcohol use: None Drug Abuse: None Family History: None Patient has suicidal ideation: No Patient has homicidal ideation: No - Past Medical History Cardiac Medical History: Reports: Hx Hypercholesterolemia, Hx Hypertension Denies: Hx Coronary Artery Disease, Hx Heart Attack Pulmonary Medical History: Denies: Hx Asthma, Hx Bronchitis, Hx COPD, Hx Pneumonia Neurological Medical History: Denies: Hx Cerebrovascular Accident, Hx Seizures Endocrine Medical History: Reports: Hx Diabetes Mellitus Type 2 Musculoskeletal Medical History: Reports Hx Arthritis Past Surgical History: Reports: Hx Breast Surgery - breast bx. Denies: Hx Pacemaker - Immunizations Immunizations up to date: No Hx Diphtheria, Pertussis, Tetanus Vaccination: No - unknown Review of Systems - Review of Systems Constitutional: See HPI EENT: No symptoms reported Cardiovascular: See HPI Respiratory: See HPI Gastrointestinal: See HPI Genitourinary: No symptoms reported Female Genitourinary: No symptoms reported Musculoskeletal: See HPI Skin: No symptoms reported Hematologic/Lymphatic: No symptoms reported Neurological/Psychological: See HPI Physical Exam - Vital signs Vitals: Temp Pulse Resp BP Pulse Ox 99.2 F 91 20 134/63 H 97 03/08/19 13:31 03/08/19 13:31 03/08/19 13:31 03/08/19 13:31 03/08/19 13:31 - Notes Notes: PHYSICAL EXAMINATION: Reviewed vital signs and charting by RN GENERAL: Alert, interacts well. No acute distress. HEAD: Normocephalic, atraumatic. EYES: Pupils equal and round. Extraocular movements intact. ENT: Oral mucosa moist, tongue midline. NECK: Full range of motion. Trachea midline. LUNGS: Clear to auscultation bilaterally, no wheezes, rales, or rhonchi. No respiratory distress. HEART: Regular rate and rhythm. No murmur ABDOMEN: soft, mild periumbilical tenderness to palpation, no distention. Bowel sounds present EXTREMITIES: Moves all 4 extremities spontaneously. No edema, No cyanosis, surgical site covered with dressing and is clean dry and intact. PSYCH: Normal affect, normal mood. SKIN: Warm, dry, normal turgor. No rashes or lesions noted. Course - Re-evaluation Re-evalutation: 03/08/19 20:24 Patient is in no acute distress and nontoxic-appearing. Patient has a leukocytosis of 16,400, hemoglobin of 7.3. This is concerning because her last hemoglobin was 48 hours after her surgery and it was over 9. Hemoccult was negative, no evidence of peritonitis on physical exam. I spoke with Dr. Vital who admitted the patient for full admission to the medical floor. - Vital Signs Vital signs: Temp Pulse Resp BP Pulse Ox 99.2 F 91 20 134/63 H 97 03/08/19 13:31 03/08/19 13:31 03/08/19 13:31 03/08/19 13:31 03/08/19 13:31 - Laboratory Result Diagrams: 03/08/19 14:55 03/08/19 14:55 Laboratory results interpreted by me: 03/08/19 03/08/19 03/08/19 14:55 14:55 14:55 WBC 16.4 H RBC 2.61 L Hgb 7.3 L Hct 22.2 L RDW 14.4 H Lymph % (Auto) 10.0 L Absolute Neuts (auto) 13.4 H Seg Neutrophils % 81.9 H APTT 40.0 H Est GFR ( Amer) 54 L Est GFR (MDRD) Non-Af 45 L Glucose 145 H Calcium 8.0 L Alkaline Phosphatase 139 H Total Protein 5.6 L Albumin 2.6 L Discharge - Discharge Clinical Impression: Acute anemia Diarrhea Qualifiers: Diarrhea type: unspecified type Qualified Code(s): R19.7 - Diarrhea, unspecified Abdominal pain Qualifiers: Abdominal location: periumbilical Qualified Code(s): R10.33 - Periumbilical pain Condition: Stable Disposition: ADMITTED INPATIENT Admitting Provider: Lenora Unit Admitted: Medical Floor Referrals: ESVIN VITAL MD [Primary Care Provider] - Follow up as needed
[2019-03-08] MEDS ORDERED: ONDANSETRON HCL INJ/PF 4 MG/2 ML SDV IV ONE (21:03)
[2019-03-08] MEDS ORDERED: CHOLECALCIFEROL (D3) 1,000 UNIT (25 MCG) TABLET PO ONE (22:45)
[2019-03-08] MEDS ORDERED: BENZTROPINE MESYLATE 1 MG TABLET PO ONE (23:00)
[2019-03-08] MEDS ORDERED: PIOGLITAZONE HCL 30 MG TABLET PO ONE (23:00)
[2019-03-08] MEDS ORDERED: ENOXAPARIN SODIUM INJ 40 MG/0.4 ML DISP.SYRIN SUBCUT ONE (23:00)
[2019-03-08] MEDS ORDERED: SIMVASTATIN 40 MG TABLET PO ONE (23:00)
[2019-03-08 23:07] LABS: APPEARANCE,URINE SLIGHTLY-CLOUDY; BILIRUBIN,URINE NEGATIVE (NEGATIVE); COLOR,URINE YELLOW; GLUCOSE, URINE >=500 mg/dL (NEGATIVE); KETONES,URINE NEGATIVE (NEGATIVE); LEUKOCYTE ESTERASE,URINE MODERATE (NEGATIVE); NITRITE,URINE POSITIVE (NEGATIVE); PROTEIN,URINE NEGATIVE (NEGATIVE); URINE SPECIFIC GRAVITY 1.013; UROBILINOGEN,URINE NEGATIVE mg/dL (<2.0)
[2019-03-09] MEDS: POTASSI CL 40 MEQ/NS 1L 1,000 ML IV PRN (00:20)
[2019-03-09] MEDS: VANCOMYCIN HCL INJ 500 MG VIAL PO SCH ×4 (00:22→21:00)
[2019-03-09] MEDS ORDERED: PIOGLITAZONE HCL 30 MG TABLET ONE (00:50)
[2019-03-09] MEDS: ENOXAPARIN SODIUM INJ 40 MG/0.4 ML DISP.SYRIN SUBCUT SCH (10:02)
[2019-03-09] MEDS: PIOGLITAZONE HCL 30 MG TABLET PO SCH (10:03)
[2019-03-09] MEDS: CHOLECALCIFEROL (D3) 1,000 UNIT (25 MCG) TABLET PO SCH (10:03)
--- NOTE | 2019-03-09 17:40 | PDOC H&P ---
History of Present Illness Admission Date/PCP: 03/08/19 20:43 ESVIN VITAL MD History of Present Illness: LAURA EDOUARD is a 63 year old female she recently was admitted for the manag ement of left hip fracture, discharged on 03/05/2019. That admission was complicated with Klebsiella UTI, she was treated with IV antibiotic, discharged home on p.o. Bactrim. She came to the emergency room for evaluation of diarrhea, in the emergency room she was found to have leukocytosis the white cell count was 16,000, because she was discharged on p.o. Bactrim on she now present with diarrhea with leukocytosis, Clostridium difficile colitis was suspected. She is admitted and started on p.o. vancomycin empirically for C. difficile colitis. Patient is a very poor historian, since she was discharged from the hospital she has not done much physical therapy at home, she was discharged home with physical therapy after she underwent hemiarthroplasty of the left hip fracture., She was also found to have severe anemia, hemoglobin 7.3, there is no evidence of acute blood loss there is no hematochezia, there is no hematuria, the wound site was inspected there is no gross blood loss from the wound site, there is no apparent reason for the severe anemia. Past Medical History Cardiac Medical History: Reports: Hyperlipidema, Hypertension Endocrine Medical History: Reports: Diabetes Mellitus Type 2 Musculoskeltal Medical History: Reports: Arthritis Hematology: Reports: Anemia Past Surgical History Past Surgical History: Reports: Orthopedic Surgery - Left Hip Social History Smoking Status: Former Smoker Hx Recreational Drug Use: No Family History Family History: None Parental Family History Reviewed: Yes Children Family History Reviewed: Yes Sibling(s) Family History Reviewed.: Yes Medication/Allergy Home Medications: RX: Benztropine Mesylate [Benztropine Mesylate 0.5 mg Tablet] 0.5 mg PO QHS 02/26/19 RX: Cholecalciferol (Vitamin D3) [Vitamin D3 1000 Unit Tablet] 1,000 unit PO DAILY 02/26/19 RX: Citalopram Hydrobromide [Citalopram HBr] 10 mg PO QHS 02/26/19 RX: Dapagliflozin Propanediol [Farxiga] 10 mg PO DAILY 02/26/19 RX: Furosemide [Lasix 40 mg Tablet] 40 mg PO QAM 02/26/19 RX: Haloperidol [Haldol 5 mg Tablet] 2.5 mg PO QHS 02/26/19 RX: Insulin Glargine,Hum.rec.anlog [Lantus Insulin 100 Unit/1 ml 10 ml] 38 unit SUBCUT QHS 02/26/19 RX: Insulin Lispro [Humalog Insulin (Lispro) 100 unit/mL] 14 unit SUBCUT BIDBL 02/26/19 RX: Insulin Lispro [Humalog Insulin (Lispro) 100 unit/mL] 18 unit SUBCUT WSUPPER 02/26/19 RX: Metformin HCl [Glucophage 500 mg Tablet] 500 mg PO BIDACBS 02/26/19 RX: Pioglitazone HCl [Actos] 30 mg PO DAILY 02/26/19 RX: Simvastatin [Zocor 40 mg Tablet] 40 mg PO QHS 02/26/19 RX: Solifenacin Succinate [Vesicare] 10 mg PO DAILY 02/26/19 Allergies/Adverse Reactions: No Known Allergies Allergy (Verified 03/08/19 13:17) Review of Systems Constitutional: ABSENT: chills, fever(s), headache(s), weight gain, weight loss Eyes: ABSENT: visual disturbances Ears: ABSENT: hearing changes Cardiovascular: ABSENT: chest pain, dyspnea on exertion, edema, orthropnea, palpitations Respiratory: ABSENT: cough, hemoptysis Gastrointestinal: PRESENT: diarrhea Genitourinary: ABSENT: dysuria, hematuria Musculoskeletal: PRESENT: other - She has difficulty ambulating since she had left hemiarthroplasty done Integumentary: ABSENT: rash, wounds Neurological: ABSENT: abnormal gait, abnormal speech, confusion, dizziness, focal weakness, syncope Psychiatric: ABSENT: anxiety, depression, homidical ideation, suicidal ideation Endocrine: ABSENT: cold intolerance, heat intolerance, menstrual abnormalities, polydipsia, polyuria Hematologic/Lymphatic: ABSENT: easy bleeding, easy bruising, lymphadenopathy Physical Exam Vital Signs: Temp Pulse Resp BP Pulse Ox 98.1 F 89 15 135/67 H 100 03/09/19 00:56 03/09/19 00:56 03/09/19 07:01 03/09/19 07:00 03/09/19 07:01 Intake & Output 03/08/19 03/09/19 03/10/19 06:59 06:59 06:59 Weight 102.1 kg General appearance: PRESENT: no acute distress, well-developed, well-nourished Head exam: PRESENT: atraumatic, normocephalic Eye exam: PRESENT: conjunctiva pink, EOMI, PERRLA Ear exam: PRESENT: normal external ear exam Mouth exam: PRESENT: moist, tongue midline Neck exam: PRESENT: full ROM Respiratory exam: PRESENT: clear to auscultation ifeoma Cardiovascular exam: PRESENT: RRR, +S1, +S2 Pulses: PRESENT: normal dorsalis pedis pul, +2 pedal pulses bilateral Vascular exam: PRESENT: normal capillary refill GI/Abdominal exam: PRESENT: normal bowel sounds, soft Rectal exam: PRESENT: deferred Extremities exam: PRESENT: other - There is dressing in the left hip. Neurological exam: PRESENT: alert, CN II-XII grossly intact Psychiatric exam: PRESENT: appropriate affect, normal mood Skin exam: PRESENT: dry, intact, warm Results Laboratory Results: 03/08/19 14:55 03/08/19 14:55 03/08/19 17:10 Urine Color YELLOW Urine Appearance SLIGHTLY-CLOUDY Urine pH 6.0 Ur Specific [place] 1.013 Urine Protein NEGATIVE Urine Glucose (UA) >=500 H Urine Ketones NEGATIVE Urine Blood NEGATIVE Urine Nitrite POSITIVE H Ur Leukocyte Esterase MODERATE H Urine WBC (Auto) 110 Urine RBC (Auto) 2 Assessment & Plan - Diagnosis (1) Acute colitis Is this a current diagnosis for this admission?: Yes Plan: She had diarrhea with leukocytosis, start vancomycin p.o. (2) T2DM (type 2 diabetes mellitus) Qualifiers: Diabetes mellitus half-way insulin use: with half-way use Diabetes mellitus complication status: with neurologic complications Diabetes mellitus complication detail: with polyneuropathy Qualified Code(s): E11.42 - Type 2 diabetes mellitus with diabetic polyneuropathy; Z79.4 - terminal operations manager (current) use of insulin Is this a current diagnosis for this admission?: Yes
--- NOTE | 2019-03-09 17:40 | PDOC PROGRESS REPORT ---
Subjective Progress Note for:: 03/09/19 Subjective:: She was admitted yesterday for the evaluation of diarrhea, leukocytosis, she is being treated for presumptive C. difficile colitis Reason For Visit: PROFUSE DIARRHEA, ? C-DIFFICLE,ANEMIA Physical Exam Vital Signs: Temp Pulse Resp BP Pulse Ox 98.1 F 89 15 135/67 H 100 03/09/19 00:56 03/09/19 00:56 03/09/19 07:01 03/09/19 07:00 03/09/19 07:01 Intake & Output 03/08/19 03/09/19 03/10/19 06:59 06:59 06:59 Weight 102.1 kg General appearance: PRESENT: no acute distress Eye exam: PRESENT: PERRLA Respiratory exam: PRESENT: clear to auscultation ifeoma Cardiovascular exam: PRESENT: +S1, +S2 GI/Abdominal exam: PRESENT: soft Neurological exam: PRESENT: alert Results Laboratory Results: 03/08/19 14:55 03/08/19 14:55 03/08/19 17:10 Urine Color YELLOW Urine Appearance SLIGHTLY-CLOUDY Urine pH 6.0 Ur Specific [place] 1.013 Urine Protein NEGATIVE Urine Glucose (UA) >=500 H Urine Ketones NEGATIVE Urine Blood NEGATIVE Urine Nitrite POSITIVE H Ur Leukocyte Esterase MODERATE H Urine WBC (Auto) 110 Urine RBC (Auto) 2 Assessment & Plan - Diagnosis (1) Acute colitis Is this a current diagnosis for this admission?: Yes (2) Acute anemia Is this a current diagnosis for this admission?: Yes Plan: She has anemia of unknown etiology
[2019-03-09] MEDS ORDERED: NORMAL SALINE 1000 ML 1,000 ML IV PRN (17:47)
[2019-03-09] MEDS ORDERED: VANCOMYCIN HCL INJ 500 MG VIAL ONE (18:25)
[2019-03-09 18:49] LABS: ABSOLUTE BASOPHILS # (AUTO) 0.1 10^3/uL (0.0-0.2); ABSOLUTE EOSINOPHILS # (AUTO) 0.2 10^3/uL (0.0-0.6); ABSOLUTE LYMPHOCYTES (AUTO) 1.8 10^3/uL (0.5-4.7); ABSOLUTE MONOCYTES (AUTO) 1.2 10^3/uL (0.1-1.4); ABSOLUTE NEUT (AUTO) 12.7 10^3/uL (1.7-8.2); BASOPHILS % (AUTO) 0.5 % (0-2); EOSINOPHILS % (AUTO) 1.2 % (0-6); HEMATOCRIT 23.7 % (36.0-47.0); LYMPHOCYTES % (AUTO) 11.1 % (13-45); MEAN CORPUSCULAR VOLUME 85 fl (80-97); MONOCYTES % (AUTO) 7.8 % (3-13); PLATELET COUNT 474 10^3/uL (150-450); RED CELL DISTRIBUTION WIDTH 14.9 % (11.5-14.0); SEGMENTED NEUTROPHILS % (AUTO) 79.4 % (42-78); TOTAL CELLS COUNTED % (AUTO) 100 %
[2019-03-09 19:09] LABS: HEMOGLOBIN 7.8 g/dL (12.0-15.5)
[2019-03-09] MEDS: BENZTROPINE MESYLATE 1 MG TABLET PO SCH (22:47)
[2019-03-09] MEDS: SIMVASTATIN 40 MG TABLET PO SCH (22:47)
[2019-03-10] MEDS: VANCOMYCIN HCL INJ 500 MG VIAL PO SCH ×3 (01:04→13:48)
[2019-03-10] MEDS: POTASSI CL 40 MEQ/NS 1L 1,000 ML IV PRN (08:40)
[2019-03-10] MEDS: CHOLECALCIFEROL (D3) 1,000 UNIT (25 MCG) TABLET PO SCH (10:34)
[2019-03-10] MEDS: ENOXAPARIN SODIUM INJ 40 MG/0.4 ML DISP.SYRIN SUBCUT SCH (10:34)
[2019-03-10] MEDS: PIOGLITAZONE HCL 30 MG TABLET PO SCH (10:34)
[2019-03-10 12:52] LABS: ABSOLUTE BASOPHILS # (AUTO) 0.1 10^3/uL (0.0-0.2); ABSOLUTE EOSINOPHILS # (AUTO) 0.2 10^3/uL (0.0-0.6); ABSOLUTE LYMPHOCYTES (AUTO) 2.2 10^3/uL (0.5-4.7); ABSOLUTE MONOCYTES (AUTO) 1.1 10^3/uL (0.1-1.4); ABSOLUTE NEUT (AUTO) 11.2 10^3/uL (1.7-8.2); ABSOLUTE RETICS # 0.124 10^6/uL (0.028-0.122); BASOPHILS % (AUTO) 0.6 % (0-2); EOSINOPHILS % (AUTO) 1.3 % (0-6); HEMATOCRIT 20.7 % (36.0-47.0); MEAN CORPUSCULAR HEMOGLOBIN 27.6 pg (27.0-33.4); MEAN CORPUSCULAR HGB CONC 32.2 g/dL (32.0-36.0); MEAN CORPUSCULAR VOLUME 86 fl (80-97); MONOCYTES % (AUTO) 7.6 % (3-13); PLATELET COUNT 477 10^3/uL (150-450); RED BLOOD COUNT 2.41 10^6/uL (3.72-5.28); RED CELL DISTRIBUTION WIDTH 14.7 % (11.5-14.0); RETICULOCYTE COUNT (AUTO) 5.15 % (0.66-2.85); SEGMENTED NEUTROPHILS % (AUTO) 75.5 % (42-78); TOTAL CELLS COUNTED % (AUTO) 100 %; WHITE BLOOD COUNT 14.9 10^3/uL (4.0-10.5)
[2019-03-10 12:59] LABS: HEMOGLOBIN 6.7 g/dL (12.0-15.5)
[2019-03-10 13:02] LABS: ALBUMIN 2.6 g/dL (3.5-5.0); ALKALINE PHOSPHATASE 107 U/L (38-126); ANION GAP 7 (5-19); ASPARTATE AMINO TRANSFERASE 27 U/L (14-36); BILIRUBIN,DIRECT 0.2 mg/dL (0.0-0.4); BILIRUBIN,TOTAL 0.9 mg/dL (0.2-1.3); BLOOD UREA NITROGEN 9 mg/dL (7-20); CALCIUM 8.1 mg/dL (8.4-10.2); CARBON DIOXIDE 24 mmol/L (22-30); CHLORIDE 105 mmol/L (98-107); GLUCOSE 193 mg/dL (75-110); IRON(TIBC) 39.4 ug/dL (37-170); TOTAL PROTEIN 5.7 g/dL (6.3-8.2)
--- NOTE | 2019-03-10 17:58 | PDOC PROGRESS REPORT ---
Subjective Progress Note for:: 03/10/19 Subjective:: Patient seen by the bedside she has left lower extremity swelling, the hemoglobin is 6.7, the iron indices is negative. She is a jehovah witness by zoya she does not receive blood transfusion Reason For Visit: PROFUSE DIARRHEA, ? C-DIFFICLE,ANEMIA Physical Exam Vital Signs: Temp Pulse Resp BP Pulse Ox 98.9 F 96 16 110/78 98 03/09/19 23:53 03/09/19 23:53 03/09/19 23:53 03/09/19 23:53 03/09/19 23:53 Intake & Output 03/09/19 03/10/19 03/11/19 06:59 06:59 06:59 Intake Total 1000 360 Output Total 675 Balance 325 360 Weight 102.1 kg 103.1 kg General appearance: PRESENT: no acute distress Eye exam: PRESENT: PERRLA Respiratory exam: PRESENT: clear to auscultation ifeoma Cardiovascular exam: PRESENT: +S1, +S2 GI/Abdominal exam: PRESENT: soft Extremities exam: PRESENT: other - left lower extremity swelling Neurological exam: PRESENT: alert Results Laboratory Results: 03/10/19 12:25 03/10/19 12:25 03/09/19 03/10/19 03/10/19 18:30 12:25 12:25 WBC 16.0 H 14.9 H RBC 2.80 L 2.41 L Hgb 7.8 L 6.7 L Hct 23.7 L 20.7 L MCV 85 86 MCH 28.0 27.6 MCHC 33.0 32.2 RDW 14.9 H 14.7 H Plt Count 474 H 477 H Seg Neutrophils % 79.4 H 75.5 Retic Count (auto) 5.15 H Sodium 136.1 L Potassium 5.0 Chloride 105 Carbon Dioxide 24 Anion Gap 7 BUN 9 Creatinine 0.67 Est GFR ( Amer) > 60 Glucose 193 H Calcium 8.1 L Iron 39.4 TIBC 224 L % Saturation 18 Ferritin 116.00 Total Bilirubin 0.9 AST 27 Alkaline Phosphatase 107 Total Protein 5.7 L Albumin 2.6 L Vitamin B12 677.0 Folate 12.50 Assessment & Plan - Diagnosis (1) Acute colitis Is this a current diagnosis for this admission?: Yes Plan: She has not had any diarrhea since admission (2) Acute anemia Is this a current diagnosis for this admission?: Yes Plan: The iron indices normal suggesting the anemia is acute, she may need GI endoscopy (3) Left leg swelling Is this a current diagnosis for this admission?: Yes Plan: Get venous Doppler to rule out DVT
[2019-03-10] MEDS ORDERED: GLUCAGON,HUMAN RECOMB 1 MG INJ IM PRN (18:30)
[2019-03-10] MEDS ORDERED: DEXTROSE 50%-WATER SYRINGE 25 GM/50 ML DOSE IV PRN (18:30)
[2019-03-10] MEDS ORDERED: DEXTROSE 50%-WATER SYRINGE 12.5 GM/25 ML DOSE IV PRN (18:30)
[2019-03-10] MEDS ORDERED: DEXTROSE 40% GEL 15 GM TUBE X 2 PO PRN (18:30)
[2019-03-10] MEDS ORDERED: DEXTROSE 40% GEL 15 GM TUBE PO PRN (18:30)
[2019-03-10] MEDS: INSULIN LISPRO 100 UNIT/ML 3 ML VIAL SUBCUT SCH (22:36)
[2019-03-10] MEDS: SIMVASTATIN 40 MG TABLET PO SCH (23:37)
[2019-03-10] MEDS: BENZTROPINE MESYLATE 1 MG TABLET PO SCH (23:37)
[2019-03-11] MEDS: INSULIN LISPRO 100 UNIT/ML 3 ML VIAL SUBCUT SCH ×4 (08:40→22:27)
--- NOTE | 2019-03-11 11:52 | RADIOLOGY REPORT (SQ) ---
EXAM DESCRIPTION: UPPER GI/SM BOWEL COMPLETED DATE/TIME: 03/11/2019 11:15 am REASON FOR STUDY: abdominal pain/anemia COMPARISON: None. TECHNIQUE: Under fluoroscopic guidance, patient ingested thin barium. Fluoroscopic spot images and routine radiographic images acquired and stored on PACS. Following evaluation of esophagus and stomach, additional barium administered with serial delayed abd ominal radiographs until colonic identification. Fluoroscopic images recorded of the terminal ileum. FLUOROSCOPY TIME: 2.6 minutes of fluoroscopy was used. 24 images saved to PACS. LIMITATIONS: None. FINDINGS: NEUROMUSCULAR COORDINATION OF SWALLOW: Normal. No aspiration. ESOPHAGEAL MOTILITY: Normal peristalsis. No esophageal spasm. ESOPHAGEAL MUCOSA: Normal mucosa without masses or ulceration. GASTRO-ESOPHAGEAL JUNCTION: Small sliding hiatal hernia with mild gastroesophageal reflux. STOMACH: Normal without masses or ulcerations. GASTRIC OUTLET: No delay in emptying. Normal pylorus. DUODENAL BULB: Normal distention. No spasm or ulceration. DUODENUM: Mucosa normal. No extrinsic masses or malrotation. PROXIMAL SMALL BOWEL: Normal as visualized. JEJUNUM: Normal mucosal pattern. No dilatation, segmentation, strictures or masses. ILEUM: Normal mucosal pattern. No dilatation, segmentation, strictures or masses. TERMINAL ILEUM AND ILEO-CECAL VALVE: Normal mucosal pattern without cobble-stoning or stricture. Nor mal compression. PROXIMAL COLON: Incompletely imaged. No abnormality. NON-GI TRACT STRUCTURES: No significant finding. OTHER: Transit time through the small bowel is normal with filling of the cecum and ascending colon o n the 90 minutes image IMPRESSION: SMALL SLIDING HIATAL HERNIA WITH MILD GASTROESOPHAGEAL REFLUX. OTHERWISE NORMAL UPPER G I, SMALL BOWEL FOLLOW-THROUGH. COMMENT: Quality ID [id number]: Final reports for procedures using fluoroscopy that document radiation exp osure indices, or exposure time and number of fluorographic images (if radiation exposure indices are not available) TECHNICAL DOCUMENTATION: JOB ID: [id number] [employer]- All Rights Reserved Reading location - IP/workstation name: [email or web address]
[2019-03-11] MEDS: CHOLECALCIFEROL (D3) 1,000 UNIT (25 MCG) TABLET PO SCH (11:59)
[2019-03-11] MEDS: PIOGLITAZONE HCL 30 MG TABLET PO SCH (11:59)
[2019-03-11] MEDS: ENOXAPARIN SODIUM INJ 40 MG/0.4 ML DISP.SYRIN SUBCUT SCH (12:00)
--- NOTE | 2019-03-11 17:14 | XCELERA REPORT ---
[address] [place] [facility] [id number] Lower Extremity Venous Evaluation Procedure: Color flow and duplex imaging of the veins of the left lower extremity as well as the right Common Femoral vein. Right Sided Venous Evaluation The right common femoral vein is fully compressible. Spontaneous and phasic flow is present in the right common femoral vein. Left Sided Venous Evaluation Normal vessel filling wall to wall, compression and augmentation as well as Colour flow down to the infrageniculate veins. Interpretation Summary No duplex evidence of DVT or obstruction in the left lower extremity nor in the right Common Femoral vein. Name: LAURA EDOUARD Age: 63 yrs Gender: Female : 1955 Patient Status: Inpatient Patient Location: [address] [place] [address] Study Date: 03/10/2019 03:24 PM Reason For Study: swelling of the left leg ,status post left hip hem Ordering Physician: ESVIN VITAL Performed By: Rafi Rollins : ESVIN VITAL > Alirio Savage
[2019-03-11 19:42] LABS: ANION GAP 6 (5-19); BLOOD UREA NITROGEN 11 mg/dL (7-20); CALCIUM 8.4 mg/dL (8.4-10.2); CARBON DIOXIDE 27 mmol/L (22-30); CHLORIDE 103 mmol/L (98-107); GLUCOSE 177 mg/dL (75-110); POTASSIUM 4.9 mmol/L (3.6-5.0)
[2019-03-11 20:02] LABS: HEMATOCRIT 20.5 % (36.0-47.0); MEAN CORPUSCULAR HEMOGLOBIN 27.9 pg (27.0-33.4); MEAN CORPUSCULAR HGB CONC 32.5 g/dL (32.0-36.0); MEAN CORPUSCULAR VOLUME 86 fl (80-97); PLATELET COUNT 493 10^3/uL (150-450)
[2019-03-11 20:05] LABS: HEMOGLOBIN 6.7 g/dL (12.0-15.5)
--- NOTE | 2019-03-11 20:30 | PDOC PROGRESS REPORT ---
Subjective Progress Note for:: 03/11/19 Subjective:: Patient seen by the bedside, the upper GI series was normal, venous Doppler was normal Reason For Visit: PROFUSE DIARRHEA, ? C-DIFFICILE Physical Exam Vital Signs: Temp Pulse Resp BP Pulse Ox 98.3 F 76 16 132/65 H 98 03/11/19 20:25 03/11/19 20:25 03/11/19 20:25 03/11/19 20:25 03/11/19 20:25 Intake & Output 03/10/19 03/11/19 03/12/19 06:59 06:59 06:59 Intake Total 1000 2120 596 Output Total 675 1100 520 Balance 325 1020 76 Weight 103.1 kg 102.9 kg General appearance: PRESENT: no acute distress Eye exam: PRESENT: PERRLA Respiratory exam: PRESENT: clear to auscultation ifeoma Cardiovascular exam: PRESENT: +S1, +S2 GI/Abdominal exam: PRESENT: soft Neurological exam: PRESENT: alert Results Laboratory Results: 03/11/19 19:10 03/11/19 19:10 03/11/19 03/11/19 19:10 19:10 WBC 12.0 H RBC 2.40 L Hgb 6.7 L Hct 20.5 L MCV 86 MCH 27.9 MCHC 32.5 RDW 15.0 H Plt Count 493 H Sodium 135.8 L Potassium 4.9 Chloride 103 Carbon Dioxide 27 Anion Gap 6 BUN 11 Creatinine 0.88 Est GFR ( Amer) > 60 Glucose 177 H Calcium 8.4 Impressions: Upper GI and Small Bowel X-Ray 03/11/19 08:00 IMPRESSION: SMALL SLIDING HIATAL HERNIA WITH MILD GASTROESOPHAGEAL REFLUX. OTHERWISE NORMAL UPPER GI, SMALL BOWEL FOLLOW-THROUGH. Assessment & Plan - Diagnosis (1) Acute colitis Is this a current diagnosis for this admission?: Yes (2) Acute anemia Is this a current diagnosis for this admission?: Yes (3) Left leg swelling Is this a current diagnosis for this admission?: Yes
[2019-03-11] MEDS: BENZTROPINE MESYLATE 1 MG TABLET PO SCH (21:59)
[2019-03-11] MEDS: SIMVASTATIN 40 MG TABLET PO SCH (21:59)
[2019-03-12] MEDS: INSULIN LISPRO 100 UNIT/ML 3 ML VIAL SUBCUT SCH ×4 (08:23→22:08)
[2019-03-12] MEDS: ENOXAPARIN SODIUM INJ 40 MG/0.4 ML DISP.SYRIN SUBCUT SCH (10:41)
[2019-03-12] MEDS: CHOLECALCIFEROL (D3) 1,000 UNIT (25 MCG) TABLET PO SCH (10:41)
[2019-03-12] MEDS: PIOGLITAZONE HCL 30 MG TABLET PO SCH (10:41)
--- NOTE | 2019-03-12 21:54 | PDOC TRANSFER SUMMARY ---
General - Admit/Disc Date/PCP Admission Date/Primary Care Provider: 03/11/19 10:53 ESVIN VITAL MD Discharge Date: 03/13/19 - Discharge Diagnosis (1) Acute colitis Is this a current diagnosis for this admission?: Yes (2) Acute anemia Is this a current diagnosis for this admission?: Yes (3) Left leg swelling Is this a current diagnosis for this admission?: Yes (4) History of left hip hemiarthroplasty Is this a current diagnosis for this admission?: Yes (5) Femoral neck fracture Is this a current diagnosis for this admission?: Yes - Additional Information Resuscitation Status: Full Code Home Medications: Benztropine Mesylate [Benztropine Mesylate 0.5 mg Tablet] 0.5 mg PO QHS 02/26/19 Cholecalciferol (Vitamin D3) [Vitamin D3 1000 Unit Tablet] 1,000 unit PO DAILY 02/26/19 Citalopram Hydrobromide [Citalopram HBr] 10 mg PO QHS 02/26/19 Dapagliflozin Propanediol [Farxiga] 10 mg PO DAILY 02/26/19 Furosemide [Lasix 40 mg Tablet] 40 mg PO QAM 02/26/19 Haloperidol [Haldol 5 mg Tablet] 2.5 mg PO QHS 02/26/19 Insulin Glargine,Hum.rec.anlog [Lantus Insulin 100 Unit/1 ml 10 ml] 38 unit SUBCUT QHS 02/26/19 Insulin Lispro [Humalog Insulin (Lispro) 100 unit/mL] 14 unit SUBCUT BIDBL 02/26/19 Insulin Lispro [Humalog Insulin (Lispro) 100 unit/mL] 18 unit SUBCUT WSUPPER 02/26/19 Metformin HCl [Glucophage 500 mg Tablet] 500 mg PO BIDACBS 02/26/19 Pioglitazone HCl [Actos] 30 mg PO DAILY 02/26/19 Simvastatin [Zocor 40 mg Tablet] 40 mg PO QHS 02/26/19 Solifenacin Succinate [Vesicare] 10 mg PO DAILY 02/26/19 History of Present Illness Admission Date/PCP: 03/11/19 10:53 ESVIN VITAL MD History of Present Illness: LAURA EDOUARD is a 63 year old female she recently was admitted for the management of left hip fracture, discharged on 03/05/2019. That admission was complicated with Klebsiella UTI, she was treated with IV antibiotic, discharged home on p.o. Bactrim. She came to the emergency room for evaluation of diarrhea, in the emergency room she was found to have leukocytosis the white cell count was 16,000, because she was discharged on p.o. Bactrim on she now present with diarrhea with leukocytosis, Clostridium difficile colitis was angelo spected. She is admitted and started on p.o. vancomycin empirically for C. difficile colitis. Patient is a very poor historian, since she was discharged from the hospital she has not done much physical therapy at home, she was discharged home with physical therapy after she underwent hemiarthroplasty of the left hip fracture., She was also found to have severe anemia, hemoglobin 7.3, there is no evidence of acute blood loss there is no hematochezia, there is no hematuria, the wound site was inspected there is no gross blood loss from the wound site, there is no apparent reason for the severe anemia. Hospital Course Hospital Course: Patient was admitted for the management of diarrhea, anemia, severe deconditioning. The stool study was negative forC. difficileThe history was that she had diarrhea she did not have any diarrhea in the hospital she was anemic but she refused blood transfusion because of her scientology, she is a Jehovah witness. She is very deconditioned she needs rehabilitation and physical therapy.She has leg swelling venous Doppler negative,she recently had left hip hemiarthroplasty Physical Exam Vital Signs: Temp Pulse Resp BP Pulse Ox 98.4 F 97 17 135/70 H 95 03/12/19 15:26 03/12/19 15:26 03/12/19 15:26 03/12/19 15:26 03/12/19 15:26 Intake & Output 03/11/19 03/12/19 03/13/19 06:59 06:59 06:59 Intake Total 2120 596 500 Output Total 1100 870 900 Balance 1020 -274 -400 Weight 102.9 kg 103.7 kg General appearance: PRESENT: no acute distress Head exam: PRESENT: atraumatic, normocephalic Eye exam: PRESENT: conjunctiva pink, EOMI, PERRLA Ear exam: PRESENT: normal external ear exam Mouth exam: PRESENT: moist, tongue midline Respiratory exam: PRESENT: clear to auscultation ifeoma Cardiovascular exam: PRESENT: RRR, +S1, +S2 Pulses: PRESENT: normal dorsalis pedis pul Vascular exam: PRESENT: normal capillary refill GI/Abdominal exam: PRESENT: normal bowel sounds, soft Rectal exam: PRESENT: deferred Extremities exam: PRESENT: full ROM Neurological exam: PRESENT: alert, CN II-XII grossly intact Psychiatric exam: PRESENT: appropriate affect, normal mood Skin exam: PRESENT: dry, intact, warm Results Laboratory Results: 03/11/19 19:10 03/11/19 19:10 Impressions: Upper GI and Small Bowel X-Ray 03/11/19 08:00 IMPRESSION: SMALL SLIDING HIATAL HERNIA WITH MILD GASTROESOPHAGEAL REFLUX. OTHERWISE NORMAL UPPER GI, SMALL BOWEL FOLLOW-THROUGH. Qualifiers - * PATIENT BEING DISCHARGED WITH ANY OF THE FOLLOWING DIAGNOSIS: No VTE patient discharged on overlapping Therapy?: No Reason(s) for not prescribing Overlap Therapy:: Not indicated Stroke Pt being discharged on Anti-thrombolytic therapy?: No Reason(s) for not prescribing Anti-thrombolytic therapy:: Not indicated Stroke Pt being discharged on Anti-coagulation therapy?: No Reason(s) for not prescribing Anti-coagulation therapy:: Not indicated Stroke Pt being discharged on Statins?: No Reason(s) for not prescribing Statins therapy:: Not indicated AR Pt being discharged on Aspirin therapy?: No Reason(s) for not prescribing Aspirin therapy:: Not indicated AR Pt being discharged on Statins?: No Reason(s) for not prescribing Statin therapy:: Not indicated AR Pt discharged ACEI/ARBS?: No Reason(s) for not prescribing ACEI/ARBS:: Not indicated Acute Heart Failure - Is this a Heart Failure Patient?: No Follow-up Appointment scheduled within 7 days?: Yes
[2019-03-12] MEDS: SIMVASTATIN 40 MG TABLET PO SCH (22:11)
[2019-03-12] MEDS: BENZTROPINE MESYLATE 1 MG TABLET PO SCH (22:11)
[2019-03-13] MEDS: INSULIN LISPRO 100 UNIT/ML 3 ML VIAL SUBCUT SCH ×2 (09:28→13:46)
[2019-03-13] MEDS: CHOLECALCIFEROL (D3) 1,000 UNIT (25 MCG) TABLET PO SCH (09:28)
[2019-03-13] MEDS: PIOGLITAZONE HCL 30 MG TABLET PO SCH (09:28)
[2019-03-13] MEDS: ENOXAPARIN SODIUM INJ 40 MG/0.4 ML DISP.SYRIN SUBCUT SCH (09:29)
[2019-03-13 17:12] VITALS: BP 93/51
== END 2019-03-13 17:25 | DRG 392 ==
LOC: ER 13:15 → EH 20:43 → INTOOBSV 20:43 → 5 03-09 17:31 → OBSVTOIN 03-11 10:53
PROVIDERS: ADMIT Internal Medicine; ATTEND Internal Medicine
DX: K52.9 Noninfective gastroenteritis and colitis, unspecified (principal); D64.9 Anemia, unspecified; I10 Essential (primary) hypertension; E78.5 Hyperlipidemia, unspecified; E11.42 Type 2 diabetes mellitus with diabetic polyneuropathy; E78.00 Pure hypercholesterolemia, unspecified; Z53.1 Procedure and treatment not carried out because of patient's decision for reasons of belief and group pressure; Z96.642 Presence of left artificial hip joint; Z79.899 Other long term (current) drug therapy; Z79.4 Long term (current) use of insulin; Z87.891 Personal history of nicotine dependence
CPT/HCPCS: 36415; 74249; 80048; 80053; 81001; 82607; 82728; 82746; 82962; 83540; 83550; 85025; 85027; 85045; 85610; 85730; 93971; 99285; G0378; J1650; J1815; J2405; J3370; J3480; J3490

== ENCOUNTER → 2019-06-05 | Outpatient (CLI) | payer MEDICAID ==
--- NOTE | 2019-06-05 11:20 | WOMENS IMAGING REPORT ---
EXAM DESCRIPTION: 3D SCREENING MAMMO BILAT COMPLETED DATE/TIME: 06/05/2019 10:23 am REASON FOR STUDY: Z12.31 ENCOUNTER FOR SCREENING MAMMOGRAM FOR MALIGNANT NEOPLASM OF BREAST Z12.31 ENCNTR SCREEN MAMMOGRAM FOR MALIGNANT NEOPLASM OF CHRISTEN COMPARISON: [id number] EXAM PARAMETERS: Standard craniocaudal and mediolateral oblique views of each breast recorded using digital acquisition and breast tomosynthesis. Read with the assistance of CAD. .[facility] - [employer] Installer Version 9.2 LIMITATIONS: None. FINDINGS: RIGHT BREAST MASSES: No suspicious masses. CALCIFICATIONS: No new or suspicious calcifications. ARCHITECTURAL DISTORTION: None. ASYMMETRY: None noted. OTHER: No other significant findings. LEFT BREAST MASSES: No suspicious masses. CALCIFICATIONS: No new or suspicious calcifications. ARCHITECTURAL DISTORTION: None. ASYMMETRY: Focal asymmetry medial subareolar only seen on the CC view. OTHER: No other significant findings. IMPRESSION: Focal asymmetry left breast. 0 Incomplete: Needs Additional Imaging Evaluation and/or prior Mammograms for Comparison. BREAST DENSITY: b. There are scattered areas of fibroglandular density. BIRAD: ASSESSMENT: 0 Incomplete: Needs Additional Imaging Evaluation and/or prior Mammograms for C omparison. RECOMMENDATION: RECOMMENDED FOLLOW-UP: Ultrasound medial subareolar left breast. The patient will be contacted for additional imaging. COMMENT: The patient has been notified of the results by letter per MQSA requirements. Additional no tification policies are in place for contacting patient with suspicious or incomplete findings. Quality ID #[id number]: The [employer] recommends an annual screening mammogram for women aged 40 years or over. This facility utilizes a reminder system to ensure that all patients receive reminder letters, and/or direct phone calls for appointments. This includes reminders for routine scr eening mammograms, diagnostic mammograms, or other Breast Imaging Interventions when appropriate. Th is patient will be placed in the appropriate reminder system. TECHNICAL DOCUMENTATION: FINDING NUMBER: (1) ASSESSMENT: (1) JOB ID: [id number] [employer]- All Rights Reserved Reading location - IP/workstation name: [email or web address]
== END ==
LOC: WI 09:36
PROVIDERS: ATTEND Internal Medicine
DX: Z12.31 Encounter for screening mammogram for malignant neoplasm of breast (principal); N64.89 Other specified disorders of breast
CPT/HCPCS: 77063; 77067

== ENCOUNTER → 2019-06-17 | Outpatient (CLI) | payer MEDICAID ==
--- NOTE | 2019-06-17 14:28 | WOMENS IMAGING REPORT ---
EXAM DESCRIPTION: U/S BREAST UNILATERAL, COMPL COMPLETED DATE/TIME: 06/17/2019 10:02 am REASON FOR STUDY: R92.2 INCONCLUSIVE MAMMOGRAM R92.2 INCONCLUSIVE MAMMOGRAM COMPARISON: Multiple mammograms since 2010 TECHNIQUE: Real-time and static grayscale imaging performed of the left breast targeted to the area of mammographic concern. Selected color Doppler images recorded. LIMITATIONS: None. FINDINGS: MASS: No mass identified. Normal glandular tissue. OTHER: No other significant finding. Prior mammograms dating back to 2008 were reviewed. Focal asymmetry medial subareolar breast on the CC view only is identified on the films dating back to 2008 IMPRESSION: No suspicious findings detected by ultrasound. BIRAD: Negative. RECOMMENDATION: RECOMMENDED FOLLOW-UP: Please continue yearly bilateral screening mammography/tomosy nthesis in May 2020 COMMENT: The [employer] (ACR) has developed recommendations for screening MRI of the breasts in certain patient populations, to be used in conjunction with mammography. Breast MRI s urveillance may be appropriate for women with more than 20% lifetime risk of developing breast cancer as determined by genetic testing, significant family history of the disease, or history of mantle r adiation for Hodgkins Disease. ACR Practice Guidelines 2008. TECHNICAL DOCUMENTATION: JOB ID: [id number] [employer]- All Rights Reserved Reading location - IP/workstation name: [email or web address]
== END ==
LOC: WI 09:25
PROVIDERS: ATTEND Internal Medicine
DX: R92.2 Inconclusive mammogram (principal)
CPT/HCPCS: 76641

== ENCOUNTER → 2019-10-14 | Outpatient (CLI) | payer MEDICARE, MEDICAID ==
[2019-10-14 14:23] LABS: HEMATOCRIT 36.3 % (36.0-47.0); HEMOGLOBIN 12.6 g/dL (12.0-15.5); MEAN CORPUSCULAR HGB CONC 34.7 g/dL (32.0-36.0); MEAN CORPUSCULAR VOLUME 87 fl (80-97); PLATELET COUNT 220 10^3/uL (150-450); RED BLOOD COUNT 4.19 10^6/uL (3.72-5.28); RED CELL DISTRIBUTION WIDTH 12.9 % (11.5-14.0); WHITE BLOOD COUNT 5.2 10^3/uL (4.0-10.5)
== END ==
LOC: OD 13:19
PROVIDERS: ATTEND Internal Medicine Gastroenterology
DX: D50.0 Iron deficiency anemia secondary to blood loss (chronic) (principal)
CPT/HCPCS: 36415; 82728; 85027

== ENCOUNTER 2020-05-07 13:59 | Inpatient (IN) | payer MEDICARE, MEDICAID ==
--- NOTE | 2020-05-07 14:22 | ER Document Report ---
ED Medical Screen (RME) - General Chief Complaint: Weakness Stated Complaint: WEAKNESS/DIZZINESS/NUMBNESS IN ARMS Time Seen by Provider: 05/07/20 14:19 Primary Care Provider: IRA LOPEZ MD [Primary Care Provider] - Follow up as needed Mode of Arrival: Wheelchair Information source: Patient Notes: 64-year-old female presented to ED for a direct admit from Dr. Cooley. He did send orders for blood work EKG urinalysis. She does have anemia, dizziness, status post CABG, and weakness she states the dizziness and weakness started yesterday. States she got her to the hospital this past Monday from a CABG. She states she was okay until yesterday. I have greeted and performed a rapid initial assessment of this patient. A comprehensive ED assessment and evaluation of the patient, analysis of test results and completion of medical decision making process will be conducted by an additional ED providers. TRAVEL OUTSIDE OF THE [place] IN LAST 30 DAYS: No - Related Data Allergies/Adverse Reactions: No Known Allergies Allergy (Verified 03/08/19 13:17) Past Medical History - Past Medical History Cardiac Medical History: Reports: Hx Hypercholesterolemia, Hx Hypertension Denies: Hx Coronary Artery Disease, Hx Heart Attack Pulmonary Medical History: Denies: Hx Asthma, Hx Bronchitis, Hx COPD, Hx Pneumonia Neurological Medical History: Denies: Hx Cerebrovascular Accident, Hx Seizures Endocrine Medical History: Reports: Hx Diabetes Mellitus Type 2 Musculoskeltal Medical History: Reports Hx Arthritis Past Surgical History: Reports: Hx Breast Surgery - breast bx, Hx Orthopedic Surgery - Left Hip. Denies: Hx Pacemaker - Immunizations Immunizations up to date: No Hx Diphtheria, Pertussis, Tetanus Vaccination: No - unknown Physical Exam - Vital signs Vitals: Temp Pulse Resp BP Pulse Ox 97.8 F 74 16 134/70 H 99 05/07/20 14:08 05/07/20 14:08 05/07/20 14:08 05/07/20 14:08 05/07/20 14:08 Course - Vital Signs Vital signs: Temp Pulse Resp BP Pulse Ox 97.8 F 74 16 134/70 H 99 05/07/20 14:08 05/07/20 14:08 05/07/20 14:08 05/07/20 14:08 05/07/20 14:08 Doctor's Discharge - Discharge Referrals: IRA LOPEZ MD [Primary Care Provider] - Follow up as needed
[2020-05-07 14:54] LABS: ABSOLUTE BASOPHILS # (AUTO) 0.1 10^3/uL (0.0-0.2); ABSOLUTE LYMPHOCYTES (AUTO) 1.2 10^3/uL (0.5-4.7); ABSOLUTE MONOCYTES (AUTO) 0.7 10^3/uL (0.1-1.4); ABSOLUTE NEUT (AUTO) 7.3 10^3/uL (1.7-8.2); BASOPHILS % (AUTO) 0.8 % (0-2); EOSINOPHILS % (AUTO) 0.2 % (0-6); HEMATOCRIT 22.2 % (36.0-47.0); LYMPHOCYTES % (AUTO) 12.8 % (13-45); MEAN CORPUSCULAR HEMOGLOBIN 29.5 pg (27.0-33.4); MEAN CORPUSCULAR HGB CONC 32.6 g/dL (32.0-36.0); MEAN CORPUSCULAR VOLUME 91 fl (80-97); MONOCYTES % (AUTO) 7.5 % (3-13); PLATELET COUNT 466 10^3/uL (150-450); RED BLOOD COUNT 2.45 10^6/uL (3.72-5.28); RED CELL DISTRIBUTION WIDTH 16.9 % (11.5-14.0); SEGMENTED NEUTROPHILS % (AUTO) 78.7 % (42-78); TOTAL CELLS COUNTED % (AUTO) 100 %; WHITE BLOOD COUNT 9.3 10^3/uL (4.0-10.5)
[2020-05-07 15:03] LABS: HEMOGLOBIN 7.2 g/dL (12.0-15.5)
[2020-05-07 15:12] LABS: ALBUMIN 3.5 g/dL (3.5-5.0); ALKALINE PHOSPHATASE 112 U/L (38-126); ANION GAP 11 (5-19); ASPARTATE AMINO TRANSFERASE 24 U/L (14-36); BILIRUBIN,DIRECT 0.1 mg/dL (0.0-0.4); BILIRUBIN,TOTAL 0.7 mg/dL (0.2-1.3); BLOOD UREA NITROGEN 25 mg/dL (7-20); CALCIUM 8.9 mg/dL (8.4-10.2); CARBON DIOXIDE 22 mmol/L (22-30); CHLORIDE 107 mmol/L (98-107); GLUCOSE 110 mg/dL (75-110); POTASSIUM 4.7 mmol/L (3.6-5.0); TOTAL PROTEIN 6.4 g/dL (6.3-8.2)
--- NOTE | 2020-05-07 16:37 | RADIOLOGY REPORT (SQ) ---
EXAM DESCRIPTION: CHEST 2 VIEWS IMAGES COMPLETED DATE/TIME: 05/07/2020 4:15 pm REASON FOR STUDY: weak, dizzy COMPARISON: None. EXAM PARAMETERS: NUMBER OF VIEWS: two views TECHNIQUE: Digital Frontal and Lateral radiographic views of the chest acquired. RADIATION DOSE: NA LIMITATIONS: none FINDINGS: LUNGS AND PLEURA: Blunting of the costophrenic angles consistent with small pleural effusi ons. No infiltrate. MEDIASTINUM AND HILAR STRUCTURES: No masses or contour abnormalities. HEART AND VASCULAR STRUCTURES: Heart upper limits normal size. No evidence for failure. BONES: No acute findings. HARDWARE: CABG. OTHER: No other significant finding. IMPRESSION: Small pleural effusions. TECHNICAL DOCUMENTATION: JOB ID: [id number] [employer]- All Rights Reserved Reading location - IP/workstation name: [email or web address]
[2020-05-07 17:26] LABS: ABSOLUTE RETICS # 0.118 10^6/uL (0.028-0.122); RETICULOCYTE COUNT (AUTO) 4.77 % (0.66-2.85)
[2020-05-07 17:29] LABS: IRON(TIBC) 39.4 ug/dL (37-170)
[2020-05-07 18:57] LABS: FOLATE > 20.00 ng/mL (>2.76)
[2020-05-07] MEDS ORDERED: NORMAL SALINE 250 ML IV PRN ×2 (20:23)
--- NOTE | 2020-05-07 20:25 | PDOC H&P ---
History of Present Illness Admission Date/PCP: 05/07/20 16:42 ESVIN VITAL MD History of Present Illness: LAURA EDOUARD is a 64 year old female She has a history of type 2 diabetes me llitus complicated with neuropathy, retinopathy, coronary artery disease she recently underwent coronary artery bypass surgery couple of weeks ago she was just discharged from the hospital in [place], she came to the office for post hospital discharge evaluation, the patient's family including the sister said patient apparently can no longer take care of herself. She is very fatigued, she cannot perform activities of daily living including self care, she cannot take her home bath, she cannot cook, she cannot do any groceries, she also seems to be fecal and urinary incontinent.In the office on examination she was very pale looking, she admitted directly from the office to the hospital .The hemogram demonstrated hemoglobin 7.2 the serum creatinine was elevated at 1.3, she is a Jehovah witness, she does not receive blood transfusion, will have to manage conservatively Past Medical History Cardiac Medical History: Reports: Coronary Artery Disease, Hyperlipidema, Hypertension Endocrine Medical History: Reports: Diabetes Mellitus Type 2 Musculoskeltal Medical History: Reports: Arthritis Psychiatric Medical History: Reports: Depression, Schizoaffective Disorder Hematology: Reports: Anemia Past Surgical History Past Surgical History: Reports: Gastric Bypass Surgery, Orthopedic Surgery - Left Hip Social History Smoking Status: Former Smoker Frequency of Alcohol Use: None Hx Recreational Drug Use: No Hx Prescription Drug Abuse: No Family History Family History: None Parental Family History Reviewed: Yes Children Family History Reviewed: Yes Sibling(s) Family History Reviewed.: Yes Medication/Allergy Home Medications: Benztropine Mesylate [Benztropine Mesylate 0.5 mg Tablet] 0.5 mg PO QHS 02/26/19 Cholecalciferol (Vitamin D3) [Vitamin D3 1000 Unit Tablet] 1,000 unit PO DAILY 02/26/19 Citalopram Hydrobromide [Citalopram HBr] 10 mg PO QHS 02/26/19 Dapagliflozin Propanediol [Farxiga] 10 mg PO DAILY 02/26/19 Furosemide [Lasix 40 mg Tablet] 40 mg PO QAM 02/26/19 Haloperidol [Haldol 5 mg Tablet] 5 mg PO QHS 02/26/19 Insulin Glargine,Hum.rec.anlog [Lantus Insulin 100 Unit/1 ml 10 ml] 38 unit SUBCUT QHS 02/26/19 Insulin Lispro [Humalog Insulin (Lispro) 100 unit/mL] 0 unit SUBCUT .SLIDINGSCALE 02/26/19 Metformin HCl [Glucophage 500 mg Tablet] 500 mg PO BID 02/26/19 Pioglitazone HCl [Actos] 30 mg PO DAILY 02/26/19 Amiodarone HCl [Cordarone 200 mg Tablet] 200 mg PO DAILY 05/07/20 Amlodipine Besylate [Norvasc 10 mg Tablet] 5 mg PO DAILY 05/07/20 Aspirin [Adult Low Dose Aspirin EC] 81 mg PO DAILY 05/07/20 Atorvastatin Calcium [Lipitor 40 mg Tablet] 40 mg PO QHS 05/07/20 Docusate Sodium [Colace 100 mg Capsule] 200 mg PO DAILY 05/07/20 Ferrous Sulfate [Feosol 325 mg Tablet] 325 mg PO BID 05/07/20 Isosorbide Mononitrate [Imdur 30 mg Tablet.er] 30 mg PO DAILY 05/07/20 Metoprolol Succinate [Toprol Xl 25 mg Tab.sr] 50 mg PO BID 05/07/20 Oxycodone HCl [Oxy-Ir 5 mg Tablet] 5 mg PO DAILYP PRN 05/07/20 Ramipril [Altace 10 mg Capsule] 10 mg PO DAILY 05/07/20 Sennosides [Senna] 8.6 mg PO DAILYP PRN 05/07/20 Allergies/Adverse Reactions: No Known Allergies Allergy (Verified 03/08/19 13:17) Review of Systems Constitutional: ABSENT: chills, fever(s), headache(s), weight gain, weight loss Eyes: ABSENT: visual disturbances Ears: ABSENT: hearing changes Cardiovascular: ABSENT: chest pain, dyspnea on exertion, edema, orthropnea, palpitations Respiratory: ABSENT: cough, hemoptysis Gastrointestinal: PRESENT: melena, nausea Genitourinary: ABSENT: dysuria, hematuria Musculoskeletal: PRESENT: back pain, joint swelling Integumentary: ABSENT: rash, wounds Neurological: ABSENT: abnormal gait, abnormal speech, confusion, dizziness, focal weakness, syncope Psychiatric: ABSENT: anxiety, depression, homidical ideation, suicidal ideation Endocrine: ABSENT: cold intolerance, heat intolerance, menstrual abnormalities, polydipsia, polyuria Hematologic/Lymphatic: ABSENT: easy bleeding, easy bruising, lymphadenopathy Physical Exam Vital Signs: Temp Pulse Resp BP Pulse Ox 97.8 F 74 16 134/70 H 99 05/07/20 14:08 05/07/20 14:08 05/07/20 14:08 05/07/20 14:08 05/07/20 14:08 Intake & Output 05/06/20 05/07/20 05/08/20 06:59 06:59 06:59 Weight 102.2 kg General appearance: PRESENT: obese Head exam: PRESENT: atraumatic, normocephalic Eye exam: PRESENT: PERRLA Ear exam: PRESENT: normal external ear exam Mouth exam: PRESENT: moist, tongue midline Neck exam: PRESENT: full ROM Respiratory exam: PRESENT: chest wall tenderness, clear to auscultation ifeoma, other - There is a full-thickness surgical wound,there is slough, Cardiovascular exam: PRESENT: +S1, +S2 Pulses: PRESENT: normal dorsalis pedis pul, +2 pedal pulses bilateral Vascular exam: PRESENT: normal capillary refill GI/Abdominal exam: PRESENT: normal bowel sounds, soft Rectal exam: PRESENT: deferred Neurological exam: PRESENT: alert, CN II-XII grossly intact Psychiatric exam: PRESENT: appropriate affect, normal mood Skin exam: PRESENT: dry, intact, warm Results Laboratory Results: 05/07/20 14:40 05/07/20 14:40 05/07/20 05/07/20 05/07/20 14:40 14:40 14:40 WBC 9.3 RBC 2.45 L Hgb 7.2 L Hct 22.2 L MCV 91 MCH 29.5 MCHC 32.6 RDW 16.9 H Plt Count 466 H Seg Neutrophils % 78.7 H Retic Count (auto) 4.77 H Sodium 139.9 Potassium 4.7 Chloride 107 Carbon Dioxide 22 Anion Gap 11 BUN 25 H Creatinine 1.30 H Est GFR ( Amer) 50 L Glucose 110 Calcium 8.9 Iron TIBC % Saturation Ferritin Total Bilirubin 0.7 AST 24 Alkaline Phosphatase 112 Total Protein 6.4 Albumin 3.5 Vitamin B12 Folate 05/07/20 14:40 WBC RBC Hgb Hct MCV MCH MCHC RDW Plt Count Seg Neutrophils % Retic Count (auto) Sodium Potassium Chloride Carbon Dioxide Anion Gap BUN Creatinine Est GFR ( Amer) Glucose Calcium Iron 39.4 TIBC 273 % Saturation 14 Ferritin 135.00 Total Bilirubin AST Alkaline Phosphatase Total Protein Albumin Vitamin B12 725.0 Folate > 20.00 Impressions: Chest X-Ray 05/07/20 00:00 IMPRESSION: Small pleural effusions. Assessment & Plan - Diagnosis (1) Acute gastrointestinal bleeding Is this a current diagnosis for this admission?: Yes Plan: Patient is presenting with acute GI bleed with passage of black stool, she is not actively bleeding at this time, she refused blood transfusion because of her zoya, she is a Jehovah witness, she does not receive blood transfusion. (2) Status post coronary artery bypass graft Is this a current diagnosis for this admission?: Yes (3) Physical deconditioning Is this a current diagnosis for this admission?: Yes Plan: Family report extreme physical deconditioning with loss of ability to perform activities of daily living including ,bathing, cooking, essentially not able to perform independent living, she may need to go to a shelter home for rehabilitation - Time Time Spent: Greater than 70 Minutes Medications reviewed and adjusted accordingly: Yes Anticipated Discharge Disposition: [facility] Facility Anticipated Discharge Timeframe: within 72 hours
[2020-05-07] MEDS ORDERED: (PENDING PHARMACY ID) (Dapagliflozin Propanediol [Farxiga] 10 MG) PO SCH (20:30)
[2020-05-07 21:32] LABS: ANION GAP 11 (5-19); BLOOD UREA NITROGEN 23 mg/dL (7-20); CALCIUM 8.9 mg/dL (8.4-10.2); CARBON DIOXIDE 23 mmol/L (22-30); CHLORIDE 106 mmol/L (98-107); CREATINE KINASE 172 U/L (30-135); GLUCOSE 78 mg/dL (75-110); POTASSIUM 4.3 mmol/L (3.6-5.0)
[2020-05-07 21:47] LABS: FREE T4 (FREE THYROXINE) 1.58 ng/dL (0.78-2.19)
[2020-05-07] MEDS ORDERED: (PENDING PHARMACY ID) (Citalopram Hydrobromide [Citalopram Hbr] 10 MG) PO SCH (22:00)
[2020-05-07] MEDS ORDERED: (PENDING PHARMACY ID) (Benztropine Mesylate [Benztropine Mesylate 0.5 Mg Tablet] 0.5 MG) PO SCH (22:00)
[2020-05-07 22:01] LABS: THYROID STIMULATING HORMONE 2.01 uIU/mL (0.47-4.68)
[2020-05-07] MEDS: CHOLECALCIFEROL (D3) 1,000 UNIT (25 MCG) TABLET PO SCH (23:35)
[2020-05-07] MEDS: AMLODIPINE BESYLATE 10 MG TABLET PO SCH (23:35)
[2020-05-07] MEDS: ISOSORBIDE MONONITRATE 30 MG TAB.ER.24H PO SCH (23:35)
[2020-05-07] MEDS: AMIODARONE HCL 200 MG TABLET PO SCH (23:35)
[2020-05-07] MEDS: BENZTROPINE MESYLATE 1 MG TABLET PO SCH (23:39)
[2020-05-07] MEDS: CITALOPRAM HYDROBROMIDE 20 MG TABLET PO SCH (23:39)
[2020-05-07] MEDS: ATORVASTATIN CALCIUM 40 MG TABLET PO SCH (23:40)
--- NOTE | 2020-05-08 00:33 | EKG REPORT ---
SEVERITY:- ABNORMAL ECG - SINUS RHYTHM BORDERLINE IVCD WITH LAD NONSPECIFIC T ABNORMALITIES, DIFFUSE LEADS : Confirmed by: Narendra Sanchez 08-May-2020 00:32:27
[2020-05-08 00:58] LABS: APPEARANCE,URINE SLIGHTLY-CLOUDY; BILIRUBIN,URINE NEGATIVE (NEGATIVE); COLOR,URINE YELLOW; GLUCOSE, URINE >=500 mg/dL (NEGATIVE); KETONES,URINE TRACE mg/dL (NEGATIVE); LEUKOCYTE ESTERASE,URINE SMALL (NEGATIVE); NITRITE,URINE NEGATIVE (NEGATIVE); PROTEIN,URINE NEGATIVE (NEGATIVE); URINE SPECIFIC GRAVITY 1.007; UROBILINOGEN,URINE NEGATIVE mg/dL (<2.0)
[2020-05-08 02:31] LABS: ABSOLUTE LYMPHOCYTES (AUTO) 1.9 10^3/uL (0.5-4.7); ABSOLUTE MONOCYTES (AUTO) 0.8 10^3/uL (0.1-1.4); ABSOLUTE NEUT (AUTO) 5.3 10^3/uL (1.7-8.2); BASOPHILS % (AUTO) 0.5 % (0-2); EOSINOPHILS % (AUTO) 0.5 % (0-6); HEMATOCRIT 21.3 % (36.0-47.0); LYMPHOCYTES % (AUTO) 23.4 % (13-45); MEAN CORPUSCULAR HEMOGLOBIN 29.4 pg (27.0-33.4); MEAN CORPUSCULAR HGB CONC 32.7 g/dL (32.0-36.0); MEAN CORPUSCULAR VOLUME 90 fl (80-97); MONOCYTES % (AUTO) 9.6 % (3-13); PLATELET COUNT 421 10^3/uL (150-450); RED BLOOD COUNT 2.37 10^6/uL (3.72-5.28); TOTAL CELLS COUNTED % (AUTO) 100 %
[2020-05-08] MEDS: AMLODIPINE BESYLATE 10 MG TABLET PO SCH (09:09)
[2020-05-08] MEDS: CHOLECALCIFEROL (D3) 1,000 UNIT (25 MCG) TABLET PO SCH (09:10)
[2020-05-08] MEDS: ISOSORBIDE MONONITRATE 30 MG TAB.ER.24H PO SCH (09:10)
[2020-05-08] MEDS: AMIODARONE HCL 200 MG TABLET PO SCH (09:10)
--- OUTSIDE RECORDS SUMMARY | 2020-05-08 15:44 | XMS REPORT ---
:1955 [facility] [place] [address] [place] [id number] Care Team Providers Name Role Phone Christinajeimyaimee Nikclarence Shakeel Primary Care Physician Unavailable Chriss Attending Clinician Unavailable Tono CHAIREZ II Attending Clinician Unavailable Chriss Unavailable Unavailable Allergies, Adverse Reactions, Alerts This patient has no known allergies or adverse reactions. Medications Ordered Filled Start Stop Current Ordering Indication Dosage Frequency Signature Comments Components Medication Medication Date Date Medication? Clinician (SIG) Name Name Accu-Chek 2018-06 No as Esther Plus 07-14 directed w/Device 00:00: In Vitro 00 Up to three times daily One Touch 2018-06- No TID as Zerio Test 07-14 directed Strip 00:00: 00:00 E11.42 3 00 :00 times a day Haloperidol 2018-06 Yes QD 1 tablet 5 MG 1-15 Orally 00:00: Once a day 00 BYDUREON Yes 2mg BCISE 2MG 2-14 subcutaneo 00:00: us once a 00 week Farxiga 10 Yes QD TAKE 1 mg TABLET BY MOUTH DAILY (DIABETES) Gabapentin Yes QD 1 capsule 300 MG orally daily Furosemide Yes QD 1 tablet 40 MG Orally Once a day VESIcare 10 Yes QD 1 tablet mg Orally Once a day Vitamin D Yes QD TAKE 1 25 MCG TABLET BY (1000 UT) MOUTH DAILY FOR 30 DAYS Haloperidol No QD 1 tablet 5 MG Orally Once a day NovoLog Yes TID 10 units Flexpen 100 Subcutaneo UNIT/ML us three times a day Simvastatin Yes QD 1 tablet 40 MG in the evening Orally Once a day Accu-Chek No CHECK Esther Plus BLOOD - SUGAR 3 TIMES A DAY Metformin Yes BID 1 tablet HCl 500 MG with meals Orally Twice a day Citalopram Yes QD 1 tablet Hydrobromid Orally e 10 MG Once a day Ramipril 10 Yes QD 1 capsule MG Orally Once a day Benztropine Yes QD 1 tablet Mesylate 1 at bedtime MG Orally Once a day Pioglitazon Yes QD 1 tablet e HCl 30 mg Orally Once a day Lantus Yes QD 30 units SoloStar Subcutaneo 100 UNIT/ML us once a day Vitamin D Yes QD 1 tablet 1000 UNIT Orally Once a day UltiCare Yes USE Mini Pen DIRECTED Enterprise 31G WITH PENS X 6 MM THREE TIMES A DAY Problems Condition Condition Condition Status Onset Resolution Last Treatin g Comments Name Details Category Date Date Treatment Clinician Date Chest pain Chest pain, Problem Active unspecified 8-09 00:00: 00 Body mass Body mass Problem Active index 30.00 index (BMI) 1-13 to 34.99 31.0-31.9, 00:00: adult 00 Body mass Body mass Problem Active index 30.00 index (BMI) 1-11 to 34.99 32.0-32.9, 00:00: adult 00 Mood Mood Problem Active 2018-06 Chriss, disorder disorder 2-03 Felicia due to due to 00:00: known known 00 physiologic physiologic al al condition condition with with depressive depressive features features Schizophren Schizophren Problem Active 2018-06 Daniela Banerjee, ia, 2-03 Felicia ed unspecified unspecified 00:00: 00 Closed Fracture of Problem Active 2018-06 fracture of unspecified 0-16 neck of part of 00:00: left femur neck of 00 left femur, subsequent encounter for closed fracture with routine healing Acute Acute Problem Active 2018-06 posthemorrh posthemorrh 0-16 agic anemia agic anemia 00:00: 00 Long-term medication tech Problem Active 2018-06 current use (current) 0-16 of insulin use of 00:00: insulin 00 Body mass Body mass Problem Active 2018-06 index 30.00 index (BMI) 0-12 to 34.99 33.0-33.9, 00:00: adult 00 Overactive Overactive Problem Active bladder bladder 2-14 00:00: 00 Bipolar Bipolar Problem Active affective disorder, 4-05 disorder, current 00:00: currently episode 00 depressed, depressed, moderate moderate Schizophren Schizophren Problem Inactiv 2016-06 Daniela Banerjee, ia, e 0-24 Felicia ed unspecified unspecified 00:00: 00 Screening Encounter Problem Active for for 7-28 malignant screening 00:00: neoplasm of mammogram 00 breast for malignant neoplasm of breast Screening Encounter Problem Active for for 6-10 malignant screening 00:00: neoplasm of for 00 cervix malignant neoplasm of cervix Body mass Body mass Problem Active 2015-06 index 30+ - index (BMI) 1-26 obesity 30.0-30.9, 00:00: adult 00 Morbid Morbid Problem Active obesity obesity 7-04 00:00: 00 Essential Essential Problem Active hypertensio (primary) 7-04 n hypertensio 00:00: n 00 Peripheral Peripheral Problem Active vascular vascular 2-12 disease disease, 00:00: unspecified 00 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 1-13 type 2 mellitus 00:00: diabetes with 00 mellitus diabetic polyneuropa thy Screening Other Problem Active mammography screening 6-15 mammogram 00:00: 00 Screening Screening Problem Active for for 6-15 malignant malignant 00:00: neoplasm of neoplasm of 00 cervix the cervix Bipolar Bipolar Problem Active disorder disorder, 1-16 unspecified 00:00: 00 Hemoptysis urinary Problem Active 2013-06 incontinenc 1-02 e,unspecifi 00:00: ed 00 Type II Diabetes Problem Active 2013-06 diabetes mellitus 1-02 mellitus without 00:00: without mention of 00 complicatio complicatio n n, type II or unspecified type, not stated as uncontrolle d Type II Diabetes Problem Active diabetes mellitus mellitus without uncontrolle mention of d complicatio n, type II or unspecified type, uncontrolle d 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 manifestati mellitus ons, type II or unspecified type, uncontrolle d Hypertensio Hypertensio Problem Active n n 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,mixed Procedures Procedure Date / Time Performed Performing Clinician Devic e -ELECTROCARDIOGRAM, COMPLETE 2019-11-29 00:00:00 INIT PREV PE LTD DUR 1ST 12 [facility] 2019-11-12 00:00:00 ADMN PNEUMCOC VAC NO FEE SCHED DAY 2019-11-12 00:00:00 PNEUMOCOCCAL VACC, 13 [facility] 2019-11-12 00:00:00 DSCHRG MED/CURRENT MED MERGE 2019-05-14 00:00:00 Results Test Description Test Time Test Comments Text Results Atomic Results Result Comments CBC + AUTOMATED DIFF 2019-05-20 00:00:00 Test Item Value Reference Range Comments WBC (test code = WBC) 6.1 4.2-11.8 RBC (test code = RBC) 3.91 3.8-5.0 HEMOGLOBIN (test code = HEMOGLOBIN) 9.9 11.3-14.9 HEMATOCRIT (test code = HEMATOCRIT) 32 34-44.3 MCV (test code = MCV) 81 80.8-97.4 MCH (test code = MCH) 25.4 26.6-33.0 MCHC (test code = MCHC) 31.6 32-34.9 RDW (test code = RDW) 17.2 11.8-15.5 PLATELET (test code = PLATELET) 305 147-365 MPV (test code = MPV) 8.86 6.00-12.00 SEGMENTED% (test code = SEGMENTED%) 53.3 43.7-73.5 SEGMENTED# (test code = SEGMENTED#) 3.3 1.9-7.5 LYMPHOCYTES% (test code = LYMPHOCYTES%) 37.70 17.9-45. 1 LYMPHOCYTES# (test code = LYMPHOCYTES#) 2.3 1-4 MONOCYTES% (test code = MONOCYTES%) 5.3 3.8-10 MONOCYTES# (test code = MONOCYTES#) 0.3 0.2-0.9 EOSINOPHILS% (test code = EOSINOPHILS%) 1.07 0.0-6.1 EOSINOPHILS# (test code = EOSINOPHILS#) 0.07 0.0-0.5 BASOPHILS% (test code = BASOPHILS%) 2.55 0.0-0.9 BASOPHILS# (test code = BASOPHILS#) 0.15 0.0-0.1 COMPREHENSIVE [id number] 00:00:00 Test Item Value Reference Range Comments SODIUM (test code = SODIUM) 140 136-145 POTASSIUM (test code = POTASSIUM) 4.7 3.5-5.1 CHLORIDE (test code = CHLORIDE) 101 98-107 CARBONDIOXIDE (test code = CARBONDIOXIDE) 27.0 17-32 GLUCOSE (test code = GLUCOSE) 154 70-99 BUN (test code = BUN) 27 7-25 CREATININESERUM (test code = CREATININESERUM) 1.08 0. 5-1.2 BUN/CREATININERATIO (test code = BUN/CREATININERATIO) 25 8-28 BILIRUBIN,Total (test code = BILIRUBIN,Total) 0.6 0. 2-1.0 CALCIUM (test code = CALCIUM) 9.3 8.6-10.5 PROTEINTOTAL (test code = PROTEINTOTAL) 6.4 6.6-8.2 ALBUMIN (test code = ALBUMIN) 3.5 3.5-5.7 ALK.PHOSPHATASE (test code = ALK.PHOSPHATASE) 56 34 -104 ALT(SGPT) (test code = ALT(SGPT)) 5 7-52 AST(SGOT) (test code = AST(SGOT)) 10 11-39 GLOBULIN (test code = GLOBULIN) 2.9 1.8-4.0 A/GRATIO (test code = A/GRATIO) 1.2 0.8-2.7 GLOMERULARFILT.RATE (test code = GLOMERULARFILT.RATE) 54 >60 HEMOGLOBIN A1c (HGB AIC)2019-05-20 00:00:00 Test Item Value Reference Range Comments [id number](HGBAIC) (test code = 4548-4) 6.8 4.0-5 .6 LIPID [id number] 00:00:00 Test Item Value Reference Range Comments CHOLESTEROL (test code = CHOLESTEROL) 192 <200 TRIGLYCERIDES (test code = TRIGLYCERIDES) 79 10-149 HDLCHOLESTEROL (test code = HDLCHOLESTEROL) 75 40-1 99 LDL/HDLRATIO (test code = LDL/HDLRATIO) 1.35 0.00-4.9 7 LDLCHOLESTEROL,calc. (test code = 101 <100 LDLCHOLESTEROL,calc.) VLDLCHOLESTEROL,calc. (test code = 16 5-40 VLDLCHOLESTEROL,calc.) CHOLESTEROL/HDLRATIO (test code = 2.56 2.00-5.00 CHOLESTEROL/HDLRATIO) NON-HDLCHOLESTEROL (test code = NON-HDLCHOLESTEROL) 117 0-159 URIC [id number] 00:00:00 Test Item Value Reference Range Comments URICACID (test code = URICACID) 7.7 2.3-6.6 [id number] 00:00:00 Test Item Value Reference Range Comments COLOR (test code = COLOR) YELLOW YELLOW CLARITY (test code = CLARITY) CLOUDY CLEAR SPECIFICGRAVITY (test code = SPECIFICGRAVITY) 1.013 1. 005-1.025 pH (test code = pH) 5.0 5.0-8.5 URINEPROTEIN (test code = URINEPROTEIN) NEGATIVE NEGATIVE URINEGLUCOSE (test code = URINEGLUCOSE) >=500 NEGATIVE URINEKETONE (test code = URINEKETONE) NEGATIVE NEGATIVE URINEBILIRUBIN (test code = URINEBILIRUBIN) NEGATIVE NEGA TIVE URINEBLOOD (test code = URINEBLOOD) SMALL NEGATIVE URINENITRITE (test code = URINENITRITE) NEGATIVE NEGATIVE UROBILINOGEN (test code = UROBILINOGEN) 0.2 0.2-1.0 LEUKOCYTE (test code = LEUKOCYTE) LARGE NEGATIVE BACTERIA (test code = BACTERIA) FEW NONE-OCC MUCOUS (test code = MUCOUS) OCCASIONAL NONE-OCC SQUAMOUSEPITHELIAL (test code = 2 0-2 SQUAMOUSEPITHELIAL) REDBLOODCELLS (test code = REDBLOODCELLS) 0-2 0-2 BUDDINGYEAST (test code = BUDDINGYEAST) OCCASIONAL NONE WHITEBLOODCELLS (test code = WHITEBLOODCELLS) >100 0- 5 MICROALBUMIN/CREATINE [id number] 00:00:00 Test Item Value Reference Range Comments MICROALB/CREATRATIO (test code = 55717-9) 50 0-29 CREATININE,URINE (test code = CREATININE,URINE) 62 20-300 TSH + FREE [id number] 00:00:00 Test Item Value Reference Range Comments [id number] (test code = [id number]) 1.148 0.340-4.410 FREET4 (test code = FREET4) 1.05 0.61-1.12 LAB [id number] 00:00:00 Test Item Value Reference Range Comments PDF (test code = PDF) LAB WHITE BLOOD CELL [id number] 00:00:00 Test Item Value Reference Range Comments WHITEBLOODCELLCLUMPS (test code = PRESENT NONE WHITEBLOODCELLCLUMPS) HYALINE [id number] 00:00:00 Test Item Value Reference Range Comments HYALINECASTS (test code = HYALINECASTS) 5 0-1 CBC + AUTOMATED [id number] 00:00:00 Test Item Value Reference Range Comments WBC (test code = WBC) 6.3 4.2-11.8 RBC (test code = RBC) 3.69 3.8-5.0 HEMOGLOBIN (test code = HEMOGLOBIN) 10.8 11.3-14.9 HEMATOCRIT (test code = HEMATOCRIT) 34 34-44.3 MCV (test code = MCV) 91 80.8-97.4 MCH (test code = MCH) 29.3 26.6-33.0 MCHC (test code = MCHC) 32.1 32-34.9 RDW (test code = RDW) 14.5 11.8-15.5 PLATELET (test code = PLATELET) 237 147-365 MPV (test code = MPV) 8.25 6.00-12.00 SEGMENTED% (test code = SEGMENTED%) 61.1 43.7-73.5 SEGMENTED# (test code = SEGMENTED#) 3.8 1.9-7.5 LYMPHOCYTES% (test code = LYMPHOCYTES%) 31.56 17.9-45. 1 LYMPHOCYTES# (test code = LYMPHOCYTES#) 2.0 1-4 MONOCYTES% (test code = MONOCYTES%) 6.5 3.8-10 MONOCYTES# (test code = MONOCYTES#) 0.4 0.2-0.9 EOSINOPHILS% (test code = EOSINOPHILS%) 0.63 0.0-6.1 EOSINOPHILS# (test code = EOSINOPHILS#) 0.04 0.0-0.5 BASOPHILS% (test code = BASOPHILS%) 0.19 0.0-0.9 BASOPHILS# (test code = BASOPHILS#) 0.01 0.0-0.1 COMPREHENSIVE [id number] 00:00:00 Test Item Value Reference Range Comments SODIUM (test code = SODIUM) 140 136-145 POTASSIUM (test code = POTASSIUM) 4.2 3.5-5.1 CHLORIDE (test code = CHLORIDE) 103 98-107 CARBONDIOXIDE (test code = CARBONDIOXIDE) 27.0 17-32 GLUCOSE (test code = GLUCOSE) 340 70-99 BUN (test code = BUN) 25 7-25 CREATININESERUM (test code = CREATININESERUM) 1.01 0. 5-1.2 BUN/CREATININERATIO (test code = BUN/CREATININERATIO) 25 8-28 BILIRUBIN,Total (test code = BILIRUBIN,Total) 0.6 0. 2-1.0 CALCIUM (test code = CALCIUM) 8.6 8.6-10.5 PROTEINTOTAL (test code = PROTEINTOTAL) 6.3 6.6-8.2 ALBUMIN (test code = ALBUMIN) 3.5 3.5-5.7 ALK.PHOSPHATASE (test code = ALK.PHOSPHATASE) 66 34 -104 ALT(SGPT) (test code = ALT(SGPT)) 6 7-52 AST(SGOT) (test code = AST(SGOT)) 11 11-39 GLOBULIN (test code = GLOBULIN) 2.8 1.8-4.0 A/GRATIO (test code = A/GRATIO) 1.2 0.8-2.7 GLOMERULARFILT.RATE (test code = GLOMERULARFILT.RATE) 59 >60 HEMOGLOBIN A1c (HGB AIC)2019-02-08 00:00:00 Test Item Value Reference Range Comments [id number](HGBAIC) (test code = 4548-4) 10.8 4.0-5 .6 LIPID [id number] 00:00:00 Test Item Value Reference Range Comments CHOLESTEROL (test code = CHOLESTEROL) 220 <200 TRIGLYCERIDES (test code = TRIGLYCERIDES) 96 10-149 HDLCHOLESTEROL (test code = HDLCHOLESTEROL) 84 40-1 99 LDL/HDLRATIO (test code = LDL/HDLRATIO) 1.39 0.00-4.9 7 LDLCHOLESTEROL,calc. (test code = 117 <100 LDLCHOLESTEROL,calc.) VLDLCHOLESTEROL,calc. (test code = 19 5-40 VLDLCHOLESTEROL,calc.) CHOLESTEROL/HDLRATIO (test code = 2.62 2.00-5.00 CHOLESTEROL/HDLRATIO) NON-HDLCHOLESTEROL (test code = NON-HDLCHOLESTEROL) 136 0-159 URIC [id number] 00:00:00 Test Item Value Reference Range Comments URICACID (test code = URICACID) 7.1 2.3-6.6 [id number] 00:00:00 Test Item Value Reference Range Comments COLOR (test code = COLOR) YELLOW YELLOW CLARITY (test code = CLARITY) CLOUDY CLEAR SPECIFICGRAVITY (test code = SPECIFICGRAVITY) 1.018 1. 005-1.025 pH (test code = pH) 6.0 5.0-8.5 URINEPROTEIN (test code = URINEPROTEIN) NEGATIVE NEGATIVE URINEGLUCOSE (test code = URINEGLUCOSE) >=500 NEGATIVE URINEKETONE (test code = URINEKETONE) NEGATIVE NEGATIVE URINEBILIRUBIN (test code = URINEBILIRUBIN) NEGATIVE NEGA TIVE URINEBLOOD (test code = URINEBLOOD) SMALL NEGATIVE URINENITRITE (test code = URINENITRITE) NEGATIVE NEGATIVE UROBILINOGEN (test code = UROBILINOGEN) 0.2 0.2-1.0 LEUKOCYTE (test code = LEUKOCYTE) LARGE NEGATIVE MUCOUS (test code = MUCOUS) OCCASIONAL NONE-OCC SQUAMOUSEPITHELIAL (test code = <1 /HPF 0-2 SQUAMOUSEPITHELIAL) REDBLOODCELLS (test code = REDBLOODCELLS) 3-10 0-2 BUDDINGYEAST (test code = BUDDINGYEAST) FEW NONE WHITEBLOODCELLS (test code = WHITEBLOODCELLS) >100 0- 5 MICROALBUMIN/CREATINE [id number] 00:00:00 Test Item Value Reference Range Comments MICROALBUMIN,URINE (test code = MICROALBUMIN,URINE) 201.0 0.0-29.0 CREATININE,URINE (test code = CREATININE,URINE) 25 20-300 MICROALB/CREATRATIO (test code = MICROALB/CREATRATIO) 804 0-29 WHITE BLOOD CELL [id number] 00:00:00 Test Item Value Reference Range Comments WHITEBLOODCELLCLUMPS (test code = PRESENT NONE WHITEBLOODCELLCLUMPS) TSH + FREE [id number] 00:00:00 Test Item Value Reference Range Comments [id number] (test code = TMI6OJQYORRLDIRM) 0.910 0.340-4.410 FREET4 (test code = FREET4) 0.98 0.61-1.12 LAB [id number] 00:00:00 Test Item Value Reference Range Comments PDF (test code = PDF) LAB Assessments Condition Name Status Diagnosis Date Treating Clinici an - Essential (primary) hypertension I10 Active Ojebuoboh, [place] - Morbid (severe) obesity due to excess Active [place]oboh, [place] calories E66.01 - Chest pain, unspecified R07.9 Active Ojebuoboh, [place] - Encounter for general adult medical Active Ojebuoboh, [place] examination without abnormal findings Z00.00 - Encounter for immunization Z23 Active Ojebuoboh, [place] - 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 Ojebuoboh, [place] polyneuropathy E11.42 - Overactive bladder N32.81 Active Ojeb uoboh, [place] - 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 Ojebuoboh, [place] polyneuropathy E11.42 - Overactive bladder N32.81 Active Ojeb uoboh, [place] - Bipolar disorder, current episode Active Ojebuoboh, [place] depressed, moderate F31.32 - Essential (primary) hypertension I10 Active Ojebuoboh, [place] - Anemia, unspecified D64.9 Active Ojeb uoboh, [place] - Body mass index (BMI) 31.0-31.9, adult Active Ojebuoboh, [place] Z68.31 - 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 O[place]ebuoboh, [place] polyneuropathy E11.42 - 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 Ojebuoboh, [place] polyneuropathy E11.42 - Essential (primary) hypertension I10 Active Ojebuoboh, [place] - Body mass index (BMI) 32.0-32.9, adult Active Ojebuoboh, [place] Z68.32 - 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 Oj[place]uoboh, [place] polyneuropathy E11.42 - Encounter for screening mammogram for Active [place]ebuoboh, [place] malignant neoplasm of breast Z12.31 - Fracture of unspecified part of neck of Active O[place]ebuoboh, [place] left femur, subsequent encounter for closed fracture with routine healing S72.002D - Acute posthemorrhagic anemia D62 Active Ojebuoboh, [place] - 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 Ojebuoboh, [place] polyneuropathy E11.42 - prison (current) use of insulin Z79.4 Active Ojebuoboh, [place] - 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 Ojebuoboh, [place] polyneuropathy E11.42 - Body mass index (BMI) 33.0-33.9, adult Active Ojebuoboh, [place] Z68.33 - Essential (primary) hypertension I10 Active Ojebuoboh, [place] - Overactive bladder N32.81 Active Ojeb uoboh, [place] - 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 Ojebuoboh, [place] polyneuropathy E11.42 - Encounter for screening for malignant Active Ojebuoboh, [place] neoplasm of cervix Z12.4 - Essential (primary) hypertension I10 Active Ojebuoboh, [place] - Overactive bladder N32.81 Active Ojeb uoboh, [place] - 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 Ojebuoboh, [place] polyneuropathy E11.42 - Encounter for screening for malignant Active Ojebuoboh, [place] neoplasm of cervix Z12.4 - Essential (primary) hypertension I10 Active O[place]ebuoboh, [place] - Overactive bladder N32.81 Active Ojeb uoboh, [place] - 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 Ojebuoboh, [place] polyneuropathy E11.42 - Overactive bladder N32.81 Active Ojeb uoboh, [place] - 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 Oj[place]uoboh, [place] polyneuropathy E11.42 - 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 Ojebuoboh, [place] polyneuropathy E11.42 - 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 Ojebuoboh, [place] polyneuropathy E11.42 - Encounter for screening mammogram for Active Ojebuoboh, [place] malignant neoplasm of breast Z12.31 - Essential (primary) hypertension I10 Active Oj[place]uoboh, [place] - Bipolar disorder, current episode Active O[place]uoboh, [place] depressed, moderate F31.32 - 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 [place]oboh, [place] polyneuropathy E11.42 - Morbid (severe) obesity due to excess Active O[place]oboh, [place] calories E66.01 - Essential (primary) hypertension I10 Active [place]uoboh, [place] - 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 O[place]uoboh, [place] polyneuropathy E11.42 - 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 [place]oboh, [place] polyneuropathy E11.42 - Bipolar disorder, current episode Active [place]oboh, [place] depressed, moderate F31.32 - Morbid (severe) obesity due to excess Active [place]oboh, [place] calories E66.01 - Essential (primary) hypertension I10 Active [place]oboh, [place] - 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 O[place]uoboh, [place] polyneuropathy E11.42 - 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 O[place]oboh, [place] polyneuropathy E11.42 - 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 O[place]uoboh, [place] polyneuropathy E11.42 - 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 O[place]uoboh, [place] polyneuropathy E11.42 - Encounter for screening mammogram for Active [place]uoboh, [place] malignant neoplasm of breast Z12.31 - Bipolar disorder, current episode Active [place]oboh, [place] depressed, moderate F31.32 - 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 [place]uoboh, [place] polyneuropathy E11.42 - 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 [place]oboh, [place] polyneuropathy E11.42 - Encounter for screening for malignant Active [place]uoboh, [place] neoplasm of cervix Z12.4 - Essential (primary) hypertension I10 Active [place]uoboh, [place] - 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 [place]oh, [place] polyneuropathy E11.42 - Essential (primary) hypertension I10 Active [place]oboh, [place] - 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 [place]oh, [place] polyneuropathy E11.42 - Cutaneous abscess of abdominal wall Active [place]oboh, [place] L02.211 - 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 [place]oh, [place] polyneuropathy E11.42 - Body mass index (BMI) 30.0-30.9, adult Active [place]oboh, [place] Z68.30 - 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 [place]oboh, [place] polyneuropathy E11.42 - Encounter for screening mammogram for Active [place]uoboh, [place] malignant neoplasm of breast Z12.31 - 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 [place]oboh, [place] polyneuropathy E11.42 - 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 [place]oboh, [place] polyneuropathy E11.42 - Essential (primary) hypertension I10 Active [place]oh, [place] - Morbid (severe) obesity due to excess Active [place], [place] calories E66.01 - Peripheral vascular disease, unspecified Active [place], [place] I73.9 - Peripheral vascular disease, unspecified Active [place], [place] I73.9 - 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 [place], [place] polyneuropathy E11.42 - Bipolar disorder, current episode Active [place], [place] depressed, moderate F31.32 - 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Oje buoboh, [place]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, type II or unspecified type, uncontrolled 250.62 - Other screening mammogram V76.12 Active [place], [place] - Osteoarthrosis involving multiple sites, Active [place], [place] but not specified as generalized 715.89 - 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Oje bu[place]oh, [place]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, type II or unspecified type, uncontrolled 250.62 - Other screening mammogram V76.12 Active [place], [place] - Screening for malignant neoplasm of the Active [place], [place] cervix V76.2 - 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Oje buoboh, [place]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, type II or unspecified type, uncontrolled 250.62 - Hypertension 401.9 Active [place], [place] - Morbid obesity 278.01 Active O[facility] h, [place] - Diabetes mellitus without mention of Active [place], [place] complication, type II or unspecified type, uncontrolled 250.02 - Hypertension 401.9 Active [place], [place] - Morbid obesity 278.01 Active [place] h, [place] - 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Oje buoboh, [place]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, type II or unspecified type, uncontrolled 250.62 - 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Oje buoboh, [place]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, type II or unspecified type, uncontrolled 250.62 - 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Oje buoboh, [place]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, type II or unspecified type, uncontrolled 250.62 - Hypertension 401.9 Active [place], [place] - Pap smear,routine examination V72.31 Active [place], [place] - 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Oje buoboh, [place]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, type II or unspecified type, uncontrolled 250.62 - 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Oje buoboh, [place]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, type II or unspecified type, uncontrolled 250.62 - 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Oje buoboh, [place]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, type II or unspecified type, uncontrolled 250.62 - Osteoarthrosis involving multiple sites, Active [place]oh, [place] but not specified as generalized 715.89 - 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Oje buoboh, [place]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, type II or unspecified type, uncontrolled 250.62 - urinary incontinence,mixed 788.33 Active [place], [place] - 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Oje buoboh, [place]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, type II or unspecified type, uncontrolled 250.62 - 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Oje buoboh, [place]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, type II or unspecified type, uncontrolled 250.62 - Hypertension 401.9 Active [place], [place] - urinary incontinence,mixed 788.33 Active [place]oh, [place] - Morbid obesity 278.01 Active [place] h, [place] - 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Oje buoboh, [place]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, type II or unspecified type, uncontrolled 250.62 - 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Oje buoboh, [place]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, type II or unspecified type, uncontrolled 250.62 - 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Oje buoboh, [place]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, type II or unspecified type, uncontrolled 250.62 - Hypertension 401.9 Active [place], [place] - 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[place], [place]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, type II or unspecified type, uncontrolled 250.62 - Hypertension 401.9 Active [place], [place] - urinary incontinence,mixed 788.33 Active [place], [place] - Morbid obesity 278.01 Active [place] [facility], [place] - 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[place], [place]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, type II or unspecified type, uncontrolled 250.62 - Hypertension 401.9 Active [place], [place] - urinary incontinence,mixed 788.33 Active [place], [place] - 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[place], [place]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, type II or unspecified type, uncontrolled 250.62 - 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[place], [place]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, type II or unspecified type, uncontrolled 250.62 - Diabetes mellitus without mention of Active [place], [place] complication, type II or unspecified type, uncontrolled 250.02 - Morbid obesity 278.01 Active [place] [facility], [place] - Hypertension 401.9 Active [place], [place] - urinary incontinence,mixed 788.33 Active [place], [place] - Diabetes mellitus without mention of Active [place], [place] complication, type II or unspecified type, uncontrolled 250.02 - Morbid obesity 278.01 Active [place], [place] - Hypertension 401.9 Active [place], [place] - urinary incontinence,mixed 788.33 Active [place], [place] - Urinary tract infection, site not Active [place], [place] specified 599.0 - 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[place], [place]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, type II or unspecified type, uncontrolled 250.62 Encounters Start End Encounter Admission Attending Care Care Encounter Date/Time Date/Time Type Type Clinicians Facility Department ID 2020-05-02 2020-05-02 Non-Resident MARIBELL Banerjee [place] [place] [id number] 10:05:00 12:05:00 ial Felicia [id number] 2020-05-01 2020-05-01 Non-Resident Banerjee, [facility] [place] [id number] 16:20:00 18:20:00 ial Fleicia 2000_H2017 2020-04-30 2020-04-30 Non-Resident Banerjee, [facility] [place] [id number] 17:30:00 19:30:00 ial Felicia [id number] 2020-04-29 2020-04-29 Non-Resident Banerjee, [facility] [place] [id number] 17:30:00 19:30:00 ial Felicia [id number] 2020-04-28 2020-04-28 Non-Resident Banerjee, [facility] [place] [id number] 17:30:00 19:30:00 ial Felicia [id number] 2020-04-27 2020-04-27 Non-Resident Banerjee, [facility] [place] [id number] 17:30:00 19:30:00 ial Felicia [id number] 2020-04-25 2020-04-25 Non-Resident Banerjee, [facility] [place] [id number] 12:05:00 14:05:00 ial Felicia [id number] 2020-04-24 2020-04-24 Non-Resident Banerjee, [facility] [place] [id number] 08:00:00 10:00:00 ial Felicia 0000_H2017 2020-04-22 2020-04-22 Non-Resident Banerjee, [facility] [place] [id number] 07:00:00 09:00:00 ial Felicia 0000_H2017 2020-04-21 2020-04-21 Non-Resident Banerjee, [facility] [place] [id number] 07:00:00 09:00:00 ial Felicia 0000_H2017 2020-04-20 2020-04-20 Non-Resident Banerjee, [facility] [place] [id number] 17:30:00 19:30:00 ial Felicia [id number] 2020-04-17 2020-04-17 Non-Resident Banerjee, [facility] [place] [id number] 08:00:00 10:00:00 ial Felicia 0000_H2017 2020-04-16 2020-04-16 Non-Resident Banerjee, [facility] [place] [id number] 08:00:00 10:00:00 ial Felicia 0000_H2017 2020-04-15 2020-04-15 Non-Resident Banerjee, [facility] [place] [id number] 07:00:00 09:00:00 ial Felicia 0000_H2017 2020-04-14 2020-04-14 Non-Resident Banerjee, [facility] [place] [id number] 07:00:00 09:00:00 ial Felicia 0000_H2017 2020-04-13 2020-04-13 Non-Resident Banerjee, [facility] [place] [id number] 08:00:00 11:00:00 ial Felicia 0000_H2017 2020-04-11 2020-04-11 Non-Resident Banerjee, [facility] [place] [id number] 09:00:00 11:00:00 ial Felicia 0000_H2017 2020-04-10 2020-04-10 Non-Resident Banerjee, [facility] [place] [id number] 08:00:00 10:00:00 ial Felicia 0000_H2017 2020-04-09 2020-04-09 Non-Resident Banerjee, [facility] [place] [id number] 08:00:00 11:00:00 ial Felicia 0000_H2017 2020-04-08 2020-04-08 Non-Resident Banerjee, [facility] [place] [id number] 11:05:00 13:05:00 ial Felicia [id number] 2020-04-07 2020-04-07 Non-Resident Banerjee, [facility] [place] [id number] 07:00:00 09:00:00 ial Felicia 0000_H2017 2020-04-06 2020-04-06 Non-Resident Banerjee, [facility] [place] [id number] 08:00:00 11:00:00 ial Felicia 0000_H2017 2020-04-04 2020-04-04 Non-Resident Banerjee, [facility] [place] [id number] 08:00:00 10:00:00 ial Felicia 0000_H2017 2020-04-03 2020-04-03 Non-Resident Banerjee, [facility] [place] [id number] 11:05:00 13:05:00 ial Felicia [id number] 2020-04-02 2020-04-02 Non-Resident Banerjee, [facility] [place] [id number] 08:00:00 11:00:00 ial Felicia 0000_H2017 2020-04-01 2020-04-01 Non-Resident Banerjee, [facility] [place] [id number] 11:05:00 13:05:00 ial Felicia [id number] 2020-03-31 2020-03-31 Non-Resident Banerjee, [facility] [place] [id number] 07:00:00 09:00:00 ial Felicia 0000_H2017 2020-03-30 2020-03-30 Non-Resident Banerjee, [facility] [place] [id number] 14:35:00 16:35:00 ial Felicia [id number] 2020-03-28 2020-03-28 Non-Resident Banerjee, [facility] [place] [id number] 12:10:00 14:10:00 ial Felicia 1000_H2017 2020-03-27 2020-03-27 Non-Resident Banerjee, [facility] [place] [id number] 11:05:00 13:05:00 ial Felicia [id number] 2020-03-26 2020-03-26 Non-Resident Banerjee, [facility] [place] [id number] 08:00:00 11:00:00 ial Felicia 0000_H2017 2020-03-25 2020-03-25 Non-Resident Banerjee, [facility] [place] [id number] 11:05:00 13:05:00 ial Felicia [id number] 2020-03-24 2020-03-24 Non-Resident Banerjee, [facility] [place] [id number] 07:00:00 09:00:00 ial Felicia 0000_H2017 2020-03-23 2020-03-23 Non-Resident Banerjee, [facility] [place] [id number] 14:35:00 16:35:00 ial Felicia [id number] 2020-03-20 2020-03-20 Non-Resident Banerjee, [facility] [place] [id number] 07:00:00 09:00:00 ial Felicia 0000_H2017 2020-03-18 2020-03-18 Non-Resident Banerjee, [facility] [place] [id number] 08:00:00 11:00:00 ial Felicia 0000_H2017 2020-03-17 2020-03-17 Non-Resident Banerjee, [facility] [place] [id number] 11:05:00 13:05:00 ial Felicia [id number] 2020-03-16 2020-03-16 Non-Resident Banerjee, [facility] [place] [id number] 08:00:00 11:00:00 ial Felicia 0000_H2017 2020-03-05 2020-03-05 Non-Resident Banerjee, [facility] [place] [id number] 08:00:00 10:00:00 ial Felicia 0000_H2017 2020-03-04 2020-03-04 Non-Resident Banerjee, [facility] [place] [id number] 08:00:00 10:00:00 ial Felicia 0000_H2017 2020-03-03 2020-03-03 Non-Resident Banerjee, [facility] [place] [id number] 08:00:00 10:00:00 ial Felicia 0000_H2017 2020-03-02 2020-03-02 Non-Resident Banerjee, [facility] [place] [id number] 08:00:00 10:00:00 ial Felicia 0000_H2017 2020-03-01 2020-03-01 Non-Resident Banerjee, [facility] [place] [id number] 08:00:00 10:00:00 ial Felicia 0000_H2017 2020-02-28 2020-02-28 Non-Resident Banerjee, [facility] [place] [id number] 08:00:00 10:00:00 ial Felicia 0000_H2017 2020-02-27 2020-02-27 Non-Resident Banerjee, [facility] [place] [id number] 08:00:00 10:00:00 ial Felicia 0000_H2017 2020-02-26 2020-02-26 Non-Resident Banerjee, [facility] [place] [id number] 08:00:00 10:00:00 ial Felicia 0000_H2017 2020-02-25 2020-02-25 Non-Resident Baen[facility]jee, [facility] [place] [id number] 08:00:00 10:00:00 ial Felicia 0000_H2017 2020-02-23 2020-02-23 Non-Resident Banerjee, [facility] [place] [id number] 08:00:00 10:00:00 ial Felicia 0000_H2017 2020-02-22 2020-02-22 Non-Resident Banerjee, [facility] [place] [id number] 08:00:00 10:00:00 ial Felicia 0000_H2017 2020-02-21 2020-02-21 Non-Resident Banerjee, [facility] [place] [id number] 07:00:00 08:00:00 ial Felicia 0000_H2017 2020-02-20 2020-02-20 Non-Resident Banerjee, [facility] [place] [id number] 07:00:00 08:00:00 ial Felicia 0000_H2017 2020-02-19 2020-02-19 Non-Resident Banerjee, [facility] [place] [id number] 07:00:00 08:00:00 ial Felicia 0000_H2017 2020-02-18 2020-02-18 Non-Resident Banerjee, [facility] [place] [id number] 07:00:00 08:00:00 ial Felicia 0000_H2017 2020-02-17 2020-02-17 Non-Resident Banerjee, [facility] [place] [id number] 15:25:00 17:25:00 ial Felicia 2500_[id number] 2020-02-14 2020-02-14 Non-Resident Banerjee, [facility] [place] [id number] 07:00:00 08:00:00 ial Felicia 0000_H2017 2020-02-132020-02-13 Non-Resident Banerjee, [facility] [place] [id number] 07:00:00 08:00:00 ial Felicia 0000_H2017 2020-02-12 2020-02-12 Non-Resident Banerjee, [facility] [place] [id number] 07:00:00 08:00:00 ial Felicia 0000_H2017 2020-02-11 2020-02-11 Non-Resident Banerjee, [facility] [place] [id number] 07:00:00 08:00:00 ial Felicia 0000_H2017 2020-02-11 2020-02-11 [id number] 00:00:00 00:00:00 PA PA 2020-02-10 2020-02-10 Non-Resident Banerjee, [facility] [place] [id number] 15:25:00 17:25:00 ial Felicia [id number] 2020-02-09 2020-02-09 Non-Resident Banerjee, [facility] [place] [id number] 08:00:00 10:00:00 ial Felicia 0000_H2017 2020-02-07 2020-02-07 Non-Resident Banerjee, [facility] [place] [id number] 07:00:00 08:00:00 ial Felicia 0000_H2017 2020-02-06 2020-02-06 Non-Resident Banerjee, [facility] [place] [id number] 07:00:00 08:00:00 ial Felicia 0000_H2017 2020-02-05 2020-02-05 Non-Resident Banerjee, [facility] [place] [id number] 07:00:00 08:00:00 ial Felicia 0000_H2017 2020-02-04 2020-02-04 Non-Resident Banerjee, [facility] [place] [id number] 07:00:00 08:00:00 ial Felicia 0000_H2017 2020-02-03 2020-02-03 Non-Resident Banerjee, [facility] [place] [id number] 15:25:00 17:25:00 ial Felicia [id number] 2020-02-02 2020-02-02 Non-Resident Banerjee, [facility] [place] [id number] 08:00:00 10:00:00 ial Felicia 0000_H2017 2020-01-31 2020-01-31 Non-Resident Banerjee, [facility] [place] [id number] 07:00:00 08:00:00 ial Felicia 0000_H2017 2020-01-30 2020-01-30 Non-Resident Banerjee, [facility] [place] [id number] 07:00:00 08:00:00 ial Felicia 0000_H2017 2020-01-29 2020-01-29 Non-Resident Banerjee, [facility] [place] [id number] 07:00:00 08:00:00 ial Felicia 0000_H2017 2020-01-28 2020-01-28 Non-Resident Banerjee, [facility] [place] [id number] 07:00:00 08:00:00 ial Felicia 0000_H2017 2020-01-27 2020-01-27 Non-Resident Banerjee, [facility] [place] [id number] 15:25:00 17:25:00 ial Felicia 2500_H2017 2020-01-26 2020-01-26 Non-Resident Banerjee, [facility] [place] [id number] 08:00:00 10:00:00 ial Felicia 0000_H2017 2020-01-24 2020-01-24 Non-Resident Banerjee, [facility] [place] [id number] 07:00:00 08:00:00 ial Felicia 0000_H2017 2020-01-23 2020-01-23 Non-Resident Banerjee, [facility] [place] [id number] 07:00:00 08:00:00 ial Felicia 0000_H2017 2020-01-22 2020-01-22 Non-Resident Banerjee, [facility] [place] [id number] 07:00:00 08:00:00 ial Felicia 0000_H2017 2020-01-21 2020-01-21 Non-Resident Banerjee, [facility] [place] [id number] 07:00:00 08:00:00 ial Felicia 0000_H2017 2020-01-20 2020-01-20 Non-Resident Banerjee, [facility] [place] [id number] 15:25:00 17:25:00 ial Felicia [id number] 2020-01-19 2020-01-19 Non-Resident Banerjee, [facility] [place] [id number] 08:00:00 10:00:00 ial Felicia 0000_H2017 2020-01-18 2020-01-18 Non-Resident Banerjee, [facility] [place] [id number] 08:00:00 10:00:00 ial Felicia 0000_H2017 2020-01-17 2020-01-17 Non-Resident Banerjee, [facility] [place] [id number] 07:00:00 08:00:00 ial Felicia 0000_H2017 2020-01-16 2020-01-16 Non-Resident Banerjee, [facility] [place] [id number] 07:00:00 08:00:00 ial Felicia 0000_H2017 2020-01-15 2020-01-15 Non-Resident Banerjee, [facility] [place] [id number] 07:00:00 08:00:00 ial Felicia 0000_H2017 2020-01-14 2020-01-14 Non-Resident Banerjee, [facility] [place] [id number] 07:00:00 08:00:00 ial Felicia 0000_H2017 2020-01-13 2020-01-13 Non-Resident Banerjee, [facility] [place] [id number] 15:25:00 17:25:00 ial Felicia [id number] 2020-01-11 2020-01-11 Non-Resident Banerjee, [facility] [place] [id number] 08:00:00 10:00:00 ial Felicia 0000_H2017 2020-01-10 2020-01-10 Non-Resident Banerjee, [facility] [place] [id number] 07:00:00 08:00:00 ial Felicia 0000_H2017 2020-01-09 2020-01-09 Non-Resident Banerjee, [facility] [place] [id number] 07:00:00 08:00:00 ial Felicia 0000_H2017 2020-01-08 2020-01-08 Non-Resident Banerjee, [facility] [place] [id number] 07:00:00 08:00:00 ial Felicia 0000_H2017 2020-01-07 2020-01-07 Non-Resident Banerjee, [facility] [place] [id number] 07:00:00 08:00:00 ial Felicia 0000_H2017 2020-01-06 2020-01-06 Non-Resident Banerjee, [facility] [place] [id number] 15:25:00 17:25:00 ial Felicia [id number] 2020-01-04 2020-01-04 Non-Resident Banerjee, [facility] [place] [id number] 08:00:00 10:00:00 ial Felicia 0000_H2017 2020-01-03 2020-01-03 Non-Resident Banerjee, [facility] [place] [id number] 07:00:00 08:00:00 ial Felicia 0000_H2017 2020-01-01 2020-01-01 Non-Resident Banerjee, [facility] [place] [id number] 07:00:00 08:00:00 ial Felicia 0000_H2017 2019-12-31 2019-12-31 Non-Resident Banerjee, [facility] [place] [id number] 07:00:00 08:00:00 ial Felicia 0000_H2017 2019-12-30 2019-12-30 Non-Resident Banerjee, [facility] [place] [id number] 15:25:00 17:25:00 ial Felicia 2500_[id number] 2019-12-27 2019-12-27 Non-Resident Banerjee, [facility] [place] [id number] 07:00:00 08:00:00 ial Felicia 0000_H2017 2019-12-26 2019-12-26 Non-Resident Banerjee, [facility] [place] [id number] 07:00:00 08:00:00 ial Felicia 0000_H2017 2019-12-25 2019-12-25 Non-Resident [facility]erjee, [facility] [place] [id number] 07:00:00 08:00:00 ial Felicia 0000_H2017 2019-12-24 2019-12-24 Non-Resident [facility]erjee, [facility] [place] [id number] 07:00:00 08:00:00 ial Felicia 0000_H2017 2019-12-23 2019-12-23 Non-Resident Banerjee, [facility] [place] [id number] 15:25:00 17:25:00 ial Felicia 2500_[id number] 2019-12-22 2019-12-22 Non-Resident [facility]erjee, [facility] [place] [id number] 08:00:00 10:00:00 ial Felicia 0000_H2017 2019-12-21 2019-12-21 Non-Resident Banerjee, [facility] [place] [id number] 08:00:00 10:00:00 ial Felicia 0000_H2017 2019-12-20 2019-12-20 Non-Resident [facility]er[facility], [facility] [place] [id number] 07:00:00 08:00:00 ial Felicia 0000_H2017 2019-12-19 2019-12-19 Non-Resident [facility], [facility] [place] [id number] 07:00:00 08:00:00 ial Felicia 0000_H2017 2019-12-18 2019-12-18 Non-Resident Banerjee, [facility] [place] [id number] 07:00:00 08:00:00 ial Felicia 0000_H2017 2019-12-17 2019-12-17 Non-Resident [facility]erjee, [facility] [place] [id number] 07:00:00 08:00:00 ial Felicia 0000_H2017 2019-12-16 2019-12-16 Non-Resident [facility], [facility] [place] [id number] 07:00:00 08:00:00 ial Felicia 0000_H2017 2019-12-13 2019-12-13 Non-Resident [facility], [facility] [place] [id number] 07:00:00 08:00:00 ial Felicia 0000_H2017 2019-12-12 2019-12-12 Non-Resident [facility]erjee, [facility] [place] [id number] 07:00:00 08:00:00 ial Felicia 0000_H2017 2019-12-11 2019-12-11 Non-Resident [facility]er[facility], [facility] [place] [id number] 07:00:00 08:00:00 ial Felicia 0000_H2017 2019-12-10 2019-12-10 Non-Resident [facility], [facility] [place] [id number] 07:00:00 08:00:00 ial Felicia _H2017 2019-12-07 2019-12-07 Non-Resident Banerjee, [facility] [place] [id number] 14:15:00 16:15:00 ial Felicia [id number] 2019-12-06 2019-12-06 Non-Resident [facility]er[facility], [facility] [place] [id number] 07:00:00 08:00:00 ial Felicia 0000_H2017 2019-12-05 2019-12-05 Non-Resident Banerjee, [facility] [place] [id number] 07:00:00 08:00:00 ial Felicia 0000_H2017 2019-12-04 2019-12-04 Non-Resident Banerjee, [facility] [place] [id number] 07:00:00 08:00:00 ial Felicia 0000_H2017 2019-12-03 2019-12-03 Non-Resident [facility], [facility] [place] [id number] 07:00:00 08:00:00 ial Felicia _H2017 2019-12-02 2019-12-02 Non-Resident Banerjee, [facility] [place] [id number] 15:30:00 17:30:00 ial Felicia [id number] 2019-11-30 2019-11-30 Non-Resident [facility]erjee, [facility] [place] [id number] 08:00:00 10:00:00 ial Felicia 0000_H2017 2019-11-292019-11-29 Non-Resident [facility]erjee, [facility] [place] [id number] 15:30:00 17:30:00 ial Felicia 2999_H2017 2019-11-292019-112019-11-29 [facility] [place] [id number] 00:00:00 00:00:00 PA 2019-11-28 2019-11-28 Non-Resident [facility]erjee, [facility] [place] [id number] 07:00:00 08:00:00 ial Felicia 0000_H2017 2019-11-27 2019-11-27 Non-Resident [facility], [facility] [place] [id number] 07:00:00 08:00:00 ial Felicia 0000_H2017 2019-11-26 2019-11-26 Non-Resident [facility], [facility] [place] [id number] 07:00:00 08:00:00 ial Felicia 0000_H2017 2019-11-25 2019-11-25 Non-Resident [facility], [facility] [place] [id number] 15:25:00 17:25:00 ial Felicia 2500_H2017 2019-11-22 2019-11-22 Non-Resident [facility]erjee, [facility] [place] [id number] 07:00:00 08:00:00 ial Felicia 0000_H2017 2019-11-21 2019-11-21 Non-Resident [facility]er[facility], [facility] [place] [id number] 07:00:00 08:00:00 ial Felicia 0000_H2017 2019-11-20 2019-11-20 Non-Resident [facility]er[facility], [facility] [place] [id number] 07:00:00 08:00:00 ial Felicia 0000_H2017 2019-11-19 2019-11-19 Non-Resident [facility]erjee, [facility] [place] [id number] 07:00:00 08:00:00 ial Felicia 0000_H2017 2019-11-15 2019-11-15 Non-Resident Banerjee, [facility] [place] [id number] 07:00:00 08:00:00 ial Felicia 0000_H2017 2019-11-14 2019-11-14 Non-Resident [facility], [facility] [place] [id number] 07:00:00 08:00:00 ial Felicia 0000_H2017 2019-11-13 2019-11-13 Non-Resident [facility], [facility] [place] [id number] 07:00:00 08:00:00 ial Felicia 0000_H2017 2019-11-13 2019-11-13 [id number] 00:00:00 00:00:00 PA PA 2019-11-12 2019-11-12 Non-Resident [facility]erjee, [facility] [place] [id number] 07:00:00 08:00:00 ial Felicia 0000_H2017 2019-11-12 2019-11-12 [id number] 00:00:00 00:00:00 PA PA 2019-11-11 2019-11-11 Non-Resident [facility]er[facility], [facility] [place] [id number] 15:25:00 17:25:00 ial Felicia [id number] 2019-11-08 2019-11-08 Non-Resident [facility], [facility] [place] [id number] 10:10:00 12:10:00 ial Felicia 999_H2017 2019-11-07 2019-11-07 Non-Resident [facility], [facility] [place] [id number] 10:10:00 12:10:00 ial Felicia 999_H2017 2019-11-06 2019-11-06 Non-Resident [facility], [facility] [place] [id number] 10:10:00 12:10:00 ial Felicia 999_H2017 2019-11-05 2019-11-05 Non-Resident [facility], [facility] [place] [id number] 10:10:00 12:10:00 ial Felicia 999_H2017 2019-11-04 2019-11-04 Non-Resident [facility], [facility] [place] [id number] 10:10:00 12:10:00 ial Felicia 999_H2017 2019-11-02 2019-11-02 Non-Resident [facility], [facility] [place] [id number] 14:20:00 16:20:00 ial Felicia 1999_H2017 2019-10-31 2019-10-31 Non-Resident [facility], [facility] [place] [id number] 16:25:00 17:25:00 ial Felicia [id number] 2019-10-30 2019-10-30 Non-Resident [facility], [facility] [place] [id number] 14:20:00 16:20:00 ial Felicia 2000_H2017 2019-10-28 2019-10-28 Non-Resident [facility], [facility] [place] [id number] 17:15:00 18:15:00 [facility] 1500_[id number] 2019-10-27 2019-10-27 Non-Resident [facility], [facility] [place] [id number] 15:10:00 16:10:00 ial Felicia 1000_H2017 2019-10-25 2019-10-25 Non-Resident [facility], [facility] [place] [id number] 12:10:00 14:10:00 ial Felicia 1000_H2017 2019-10-24 2019-10-24 Non-Resident [facility], [facility] [place] [id number] 12:10:00 14:10:00 ial Felicia 1000_H2017 2019-10-23 2019-10-23 Non-Resident [facility], [facility] [place] [id number] 12:10:00 14:10:00 ial Felicia 1000_H2017 2019-10-22 2019-10-22 Non-Resident [facility], [facility] [place] [id number] 12:10:00 14:10:00 ial Felicia 1000_H2017 2019-10-21 2019-10-21 Non-Resident [facility], [facility] [place] [id number] 12:10:00 14:10:00 ial Felicia 1000_H2017 2019-10-18 2019-10-18 Non-Resident [facility], [facility] [place] [id number] 13:15:00 15:15:00 ial Felicia [id number] 2019-10-17 2019-10-17 Non-Resident [facility], [facility] [place] [id number] 12:10:00 14:10:00 ial Felicia 1000_H2017 2019-10-16 2019-10-16 Non-Resident [facility], [facility] [place] [id number] 15:31:00 16:31:00 ial Felicia [id number] 2019-10-15 2019-10-15 Non-Resident [facility], [facility] [place] [id number] 14:30:00 16:30:00 ial Felicia [id number] 2019-10-10 2019-10-10 Non-Resident [facility], [facility] [place] [id number] 14:25:00 16:25:00 ial Felicia 2500_[id number] 2019-10-08 2019-10-08 Non-Resident [facility], [facility] [place] [id number] 12:20:00 14:20:00 ial Felicia 1999_H2017 2019-10-07 2019-10-07 Non-Resident [facility], [facility] [place] [id number] 14:30:00 16:30:00 ial Felicia [id number] 2019-10-01 2019-10-01 Non-Resident [facility], [facility] [place] [id number] 17:00:00 18:00:00 ial Felicia _H2017 2019-09-30 2019-09-30 Non-Resident [facility], [facility] [place] [id number] 15:15:00 15:45:00 ial Felicia [id number] 2019-09-27 2019-09-27 Non-Resident [facility], [facility] [place] [id number] 09:30:00 09:45:00 ial Felicia [id number] 2019-09-23 2019-09-23 Non-Resident [place], [facility] [place] [id number] 08:30:00 14:30:00 ial Zeus 3000_[id number] 2019-09-20 2019-09-20 Non-Resident [place], [facility] [place] [id number] 08:30:00 14:30:00 ial Zeus 3000_[id number] 2019-09-19 2019-09-19 Non-Resident [place], [facility] [place] [id number] 08:30:00 14:30:00 ial Zeus 3000_[id number] 2019-09-18 2019-09-18 Non-Resident [place], [facility] [place] [id number] 08:30:00 14:30:00 ial Zeus 3000_[id number] 2019-09-17 2019-09-17 Non-Resident [place], [facility] [place] [id number] 08:30:00 14:30:00 ial Zeus 3000_[id number] 2019-09-16 2019-09-16 Non-Resident [place], [facility] [place] [id number] 08:30:00 14:30:00 ial Zeus 3000_H2017 2019 2019 Non-Resident [place] [facility] [place] [id number] 08:30:00 14:30:00 ial Zeus [id number] 2019-09-12 2019-09-12 Non-Resident [place] [facility] [place] [id number] 08:30:00 14:30:00 ial Zeus [id number] 2019-09-11 2019-09-11 Non-Resident [place] [facility] [place] [id number] 08:30:00 14:30:00 ial Zeus [id number] 2019-09-10 2019-09-10 Non-Resident [place] [facility] [place] [id number] 08:30:00 14:30:00 ial Zeus [id number] 2019-09-09 2019-09-09 Non-Resident [place] [facility] [place] [id number] 08:30:00 14:30:00 ial Zeus [id number] 2019-08-30 2019-08-30 Non-Resident [place], [facility] [place] [id number] 08:00:00 14:00:00 ial Felicia 0000_H2017 2019-08-29 2019-08-29 Non-Resident [place] [facility] [place] [id number] 08:00:00 14:00:00 ial Felicia 0000_H2017 2019-08-28 2019-08-28 Non-Resident [place] [facility] [place] [id number] 08:00:00 14:00:00 ial Felicia 0000_H2017 2019-08-27 2019-08-27 Non-Resident [place] [facility] [place] [id number] 08:00:00 14:00:00 ial Felicia 0000_H2017 2019-08-26 2019-08-26 Non-Resident [place] [facility] [place] [id number] 08:00:00 14:00:00 ial Felicia 0000_H2017 2019-08-23 2019-08-23 Non-Resident [place] [facility] [place] [id number] 08:00:00 14:00:00 ial Felicia 0000_H2017 2019-08-22 2019-08-22 Non-Resident [place] [facility] [place] [id number] 08:00:00 14:00:00 ial Felicia 0000_H2017 2019-08-21 2019-08-21 Non-Resident [place] [facility] [place] [id number] 08:00:00 14:00:00 ial Felicia 0000_H2017 2019-08-20 2019-08-20 Non-Resident [place] [facility] [place] [id number] 08:00:00 14:00:00 ial Felicia 0000_H2017 2019-08-19 2019-08-19 Non-Resident [place] [facility] [place] [id number] 08:00:00 14:00:00 ial Felicia 0000_H2017 2019-08-15 2019-08-15 Non-Resident [place] [facility] [place] [id number] 08:00:00 14:00:00 ial Felicia 0000_H2017 2019-08-14 2019-08-14 Non-Resident [place] [facility] [place] [id number] 08:00:00 14:00:00 ial Felicia 0000_H2017 2019-08-14 2019-08-14 [id number] 00:00:00 00:00:00 PA PA 2019-08-13 2019-08-13 Non-Resident [place], [facility] [place] [id number] 08:00:00 14:00:00 ial Felicia 0000_H2017 2019-08-12 2019-08-12 Non-Resident [place] [facility] [place] [id number] 08:00:00 14:00:00 ial Felicia 0000_H2017 2019-08-09 2019-08-09 Non-Resident [place] [facility] [place] [id number] 08:00:00 14:00:00 ial Felicia 0000_H2017 2019-08-08 2019-08-08 Non-Resident [place] [facility] [place] [id number] 08:00:00 14:00:00 ial Felicia 0000_H2017 2019-08-07 2019-08-07 Non-Resident [place] [facility] [place] [id number] 08:00:00 14:00:00 ial Felicia 0000_H2017 2019-08-06 2019-08-06 Non-Resident [place] [facility] [place] [id number] 08:00:00 14:00:00 ial Felicia 0000_H2017 2019-08-05 2019-08-05 Non-Resident [place] [facility] [place] [id number] 08:00:00 14:00:00 ial Felicia 0000_H2017 2019-06-28 2019-06-28 Non-Resident [place] [facility] [place] [id number] 08:00:00 14:00:00 ial Felicia 0000_H2017 2019-06-27 2019-06-27 Non-Resident [place] [facility] [place] [id number] 08:00:00 14:00:00 ial Felicia 0000_H2017 2019-06-25 2019-06-25 Non-Resident [place] [facility] [place] [id number] 08:00:00 14:00:00 ial Felicia 0000_H2017 2019-06-24 2019-06-24 Non-Resident [place] [facility] [place] [id number] 08:00:00 14:00:00 ial Felicia 0000_H2017 2019-06-21 2019-06-21 Non-Resident [place] [facility] [place] [id number] 08:30:00 14:30:00 ial Zeus 3000_H2017 2019-06-17 2019-06-17 Non-Resident [place], [facility] [place] [id number] 08:30:00 14:30:00 ial Zeus 3000_H2017 2019-06-14 2019-06-14 Non-Resident [place], [facility] [place] [id number] 08:30:00 14:30:00 ial Zeus 3000_H2017 2019-06-13 2019-06-13 Non-Resident [place], [facility] [place] [id number] 08:30:00 14:30:00 ial Zeus 3000_H2017 2019-06-12 2019-06-12 Non-Resident [place], [facility] [place] [id number] 08:30:00 14:30:00 ial Zeus 3000_H2017 2019-06-11 2019-06-11 Non-Resident [place], [facility] [place] [id number] 08:30:00 14:30:00 ial Zeus 3000_H2017 2019-06-10 2019-06-10 Non-Resident [place] [facility] [place] [id number] 08:30:00 14:30:00 ial Zeus 3000_H2017 2019-06-07 2019-06-07 [facility] [id number] 00:00:00 00:00:00 PA PA 2019-05-28 2019-05-28 Non-Resident SHAW, [facility] [place] 2 [id number] 08:00:00 09:00:00 ial SHYLA Sullivan [id number] 2019-05-27 2019-05-27 [facility] 31 [id number] 00:00:00 00:00:00 PA PA 2019-05-20 2019-05-20 [facility] 31 [id number] 00:00:00 00:00:00 PA PA 2019-05-20 2019-05-20 [facility] 31 [id number] 00:00:00 00:00:00 PA PA 2019-05-20 2019-05-20 [facility] 31 [id number] 00:00:00 00:00:00 PA PA 2019-05-14 2019-05-14 [facility] 30 [id number] 00:00:00 00:00:00 PA PA 2019-05-14 2019-05-14 [facility] 31 [id number] 00:00:00 00:00:00 PA PA 2019-05-14 2019-05-14 [facility] 31 [id number] 00:00:00 00:00:00 PA PA 2019-05-10 2019-05-10 [facility] 31 [id number] 00:00:00 00:00:00 PA PA 2019-05-08 2019-05-08 [facility] 31 [id number] 00:00:00 00:00:00 PA PA 2019-04-07 2019-04-07 [facility] [id number] 00:00:00 00:00:00 Intermediate Intermediate 2019-03-08 2019-03-08 [facility] 30 [id number] 00:00:00 00:00:00 PA PA 2019-03-07 2019-03-07 [facility] 30 [id number] 00:00:00 00:00:00 PA PA 2019-02-22 2019-02-22 Non-Resident Banerjee, [facility] [place] [id number] 08:30:00 14:30:00 ial Felicia 3000_H2017 2019-02-21 2019-02-21 Non-Resident [place], [facility] [place] [id number] 08:30:00 14:30:00 ial Felicia 3000_H2017 2019-02-20 2019-02-20 Non-Resident [place], [facility] [place] [id number] 08:30:00 14:30:00 ial Felicia 3000_H2017 2019-02-19 2019-02-19 Non-Resident [place], [facility] [place] [id number] 08:30:00 14:30:00 ial Felicia 3000_H2017 2019-02-18 2019-02-18 Non-Resident [place], [facility] [place] [id number] 08:30:00 14:30:00 ial Felicia 3000_H2017 2019-02-08 2019-02-08 Non-Resident SH[place], [facility] [place] 2 [id number] 10:00:00 14:00:00 ial LATONA S 0000_H2017 2019-02-08 2019-02-08 [facility] 29 [id number] 00:00:00 00:00:00 PA PA 2019-02-07 2019-02-07 Non-Resident SHAW, [facility] [place] 2 [id number] 10:00:00 14:00:00 ial LATONA S 0000_H2017 2019-02-06 2019-02-06 Non-Resident [place], [facility] [place] 2 [id number] 10:00:00 13:00:00 ial SHYLA Sullivan 0000_H2017 2019-02-04 2019-02-04 Non-Resident [place], [facility] [place] 2 [id number] 08:00:00 14:00:00 ial SHYLA Sullivan 0000_H2017 2019-02-01 2019-02-01 Non-Resident [place], [facility] [place] [id number] 08:30:00 14:30:00 ial Zeus 3000_H2017 2019-01-30 2019-01-30 Non-Resident [place], [facility] [place] [id number] 08:30:00 14:30:00 ial Zeus 3000_H2017 2019-01-29 2019-01-29 Non-Resident [place], [facility] [place] [id number] 08:30:00 14:30:00 ial Zeus 3000_H2017 2019-01-28 2019-01-28 Non-Resident [place], [facility] [place] [id number] 08:30:00 14:30:00 ial Zeus 3000_H2017 2019-01-25 2019-01-25 Non-Resident [place], [facility] [place] [id number] 08:30:00 14:30:00 ial Felicia 3000_H2017 2019-01-25 2019-01-25 [facility] 30 [id number] 00:00:00 00:00:00 SWAPNA BARCENAS 2019-01-24 2019-01-24 Non-Resident [place], [facility] [place] [id number] 08:30:00 14:30:00 ial Felicia 3000_H2017 2019-01-23 2019-01-23 Non-Resident [place], [facility] [place] [id number] 08:30:00 14:30:00 ial Felicia 3000_H2017 2019-01-22 2019-01-22 Non-Resident [place], [facility] [place] [id number] 08:30:00 14:30:00 ial Felicia 3000_H2017 2019-01-21 2019-01-21 Non-Resident [place], [facility] [place] [id number] 08:30:00 14:30:00 ial Felicia 2999_H2017 2019-01-18 2019-01-18 Non-Resident [place], [facility] [place] [id number] 08:30:00 14:30:00 ial Felicia 2999_H2017 2019-01-17 2019-01-17 Non-Resident [place], [facility] [place] [id number] 08:30:00 14:30:00 ial Felicia 2999_H2017 2019-01-16 2019-01-16 Non-Resident [place], [facility] [place] [id number] 08:30:00 14:30:00 ial Felicia 2999_H2017 2019-01-15 2019-01-15 Non-Resident [place], [facility] [place] [id number] 08:30:00 14:30:00 ial Felicia 3000_H2017 2019-01-14 2019-01-14 Non-Resident [place], [facility] [place] [id number] 08:30:00 14:30:00 ial Felicia 3000_H2017 2019-01-11 2019-01-11 Non-Resident H[place], [facility] [place] 2 [id number] 08:00:00 14:00:00 ial CECILY T 0000_H2017 2019-01-10 2019-01-10 Non-Resident [place], [facility] [place] 2 [id number] 08:00:00 14:00:00 ial CECILY T 0000_H2017 2019-01-09 2019-01-09 Non-Resident [place], [facility] [place] 2 [id number] 08:00:00 14:00:00 ial CECILY T 0000_H2017 2019-01-08 2019-01-08 Non-Resident [place], [facility] [place] 2 [id number] 08:00:00 14:00:00 ial CECILY Cope 0000_H2017 2019-01-07 2019-01-07 Non-Resident [place], [facility] [place] 2 [id number] 08:00:00 14:00:00 ial CECILY T 0000_H2017 2019-01-04 2019-01-04 Non-Resident [place], [facility] [place] [id number] 08:30:00 14:30:00 ial Zeus 2999_H2017 2019-01-03 2019-01-03 Non-Resident [place], [facility] [place] [id number] 08:30:00 14:30:00 ial Zeus 2999_H2017 2019-01-02 2019-01-02 Non-Resident [place], [facility] [place] [id number] 08:30:00 14:30:00 ial Zeus 2999_H2017 2019-01-01 2019-01-01 Non-Resident [place], [facility] [place] [id number] 08:30:00 14:30:00 ial Zeus 3000_H2017 2018-12-31 2018-12-31 Non-Resident [place], [facility] [place] [id number] 08:30:00 14:30:00 ial Zeus 3000_H2017 2018-12-28 2018-12-28 Non-Resident [place], [facility] [place] [id number] 08:30:00 14:30:00 ial Felicia 3000_H2017 2018-12-26 2018-12-26 Non-Resident [place], [facility] [place] [id number] 08:30:00 14:30:00 ial Felicia 3000_H2017 2018-12-25 2018-12-25 Non-Resident [place], [facility] [place] [id number] 08:30:00 14:30:00 ial Felicia 3000_H2017 2018-12-24 2018-12-24 Non-Resident [place], [facility] [place] 2 [id number] 11:00:00 15:00:00 ial LATONA S 0000_H2017 2018-12-24 2018-12-24 Non-Resident [place], [facility] [place] 2 [id number] 08:00:00 10:00:00 ial LATONA S 0000_H2017 2018-12-21 2018-12-21 Non-Resident [place], [facility] [place] [id number] 08:30:00 14:30:00 ial Felicia 3000_H2017 2018-12-20 2018-12-20 Non-Resident [place], [facility] [place] [id number] 08:30:00 14:30:00 ial Felicia 3000_H2017 2018-12-19 2018-12-19 Non-Resident [place], [facility] [place] [id number] 08:30:00 14:30:00 ial Felicia 3000_H2017 2018-12-18 2018-12-18 Non-Resident [place], [facility] [place] [id number] 08:30:00 14:30:00 ial Felicia 2999_H2017 2018-12-17 2018-12-17 Non-Resident [place], [facility] [place] [id number] 08:30:00 14:30:00 ial Felicia 2999_H2017 2018-12-14 2018-12-14 Non-Resident [place], [facility] [place] [id number] 08:30:00 14:30:00 ial Felicia 2999_H2017 2018-12-13 2018-12-13 Non-Resident [place], [facility] [place] [id number] 08:30:00 14:30:00 ial Felicia 2999_H2017 2018-12-12 2018-12-12 Non-Resident [place], [facility] [place] [id number] 08:30:00 14:30:00 ial Felicia 2999_H2017 2018-12-11 2018-12-11 Non-Resident [place], [facility] [place] [id number] 08:30:00 14:30:00 ial Felicia 2999_H2017 2018-12-10 2018-12-10 Non-Resident [place], [facility] [place] [id number] 08:30:00 14:30:00 ial Felicia 2999_[id number] 2018-12-07 2018-12-07 Non-Resident [place], [facility] [place] [id number] 08:15:00 14:15:00 ial LATONA S 1500_[id number] 2018-12-06 2018-12-06 Non-Resident [place], [facility] [place] [id number] 08:30:00 14:30:00 ial Zeus 2999_H2017 2018-12-05 2018-12-05 Non-Resident [place], [facility] [place] [id number] 08:30:00 14:30:00 ial Zeus 3000_H2017 2018-12-04 2018-12-04 Non-Resident [place], [facility] [place] [id number] 08:30:00 14:30:00 ial Zeus 3000_H2017 2018-12-03 2018-12-03 Non-Resident [place], [facility] [place] [id number] 08:30:00 14:30:00 ial Zeus 3000_H2017 2018-11-30 2018-11-30 Non-Resident [place]er[place], [facility] [place] [id number] 08:30:00 14:30:00 ial Felicia 2999_H2017 2018-11-29 2018-11-29 Non-Resident [place], [facility] [place] [id number] 08:30:00 14:30:00 ial Felicia 3000_H2017 2018-11-28 2018-11-28 Non-Resident [place], [facility] [place] [id number] 08:30:00 14:30:00 ial Felicia 2999_H2017 2018-11-27 2018-11-27 Non-Resident [place], [facility] [place] [id number] 08:30:00 14:30:00 ial Felicia 3000_H2017 2018-11-26 2018-11-26 Non-Resident [place], [facility] [place] [id number] 08:30:00 14:30:00 ial Felicia 3000_H2017 2018-11-23 2018-11-23 Non-Resident [place], [facility] [place] 2 [id number] 08:00:00 14:00:00 ial CECILY Cope 0000_H2017 2018-11-22 2018-11-22 Non-Resident [place], [facility] [place] 2 [id number] 08:00:00 14:00:00 ial CECILY Cope 0000_H2017 2018-11-21 2018-11-21 Non-Resident [place], [facility] [place] 2 [id number] 08:00:00 14:00:00 ial CECILY Cope 0000_H2017 2018-11-20 2018-11-20 Non-Resident [place], [facility] [place] [id number] 08:00:00 14:00:00 ial CECILY Cope _H2017 2018-11-16 2018-11-16 Non-Resident [place], [facility] [place] [id number] 08:30:00 14:30:00 ial Zeus 3000_H2017 2018-11-15 2018-11-15 Non-Resident [place], [facility] [place] [id number] 08:30:00 14:30:00 ial Zeus 2999_H2017 2018-11-14 2018-11-14 Non-Resident [place], [facility] [place] [id number] 08:30:00 14:30:00 ial Zeus 3000_H2017 2018-11-13 2018-11-13 Non-Resident [place], [facility] [place] [id number] 08:30:00 14:30:00 ial Zeus 3000_H2017 2018-11-12 2018-11-12 Non-Resident [place], [facility] [place] [id number] 08:30:00 14:30:00 ial Zeus 3000_H2017 2018-11-09 2018-11-09 Non-Resident Chriss, [facility] [place] [id number] 08:30:00 14:30:00 ial Felicia 2999_H2017 2018-11-08 2018-11-08 Non-Resident [place], [facility] [place] [id number] 08:30:00 14:30:00 ial Felicia 3000_H2017 2018-11-08 2018-11-08 [facility] 28 [id number] 00:00:00 00:00:00 PA PA 2018-11-07 2018-11-07 Non-Resident [place], [facility] [place] [id number] 08:30:00 14:30:00 ial Felicia 2999_H2017 2018-11-06 2018-11-06 Non-Resident [place], [facility] [place] [id number] 09:00:00 15:00:00 ial Felicia 0000_H2017 2018-11-05 2018-11-05 Non-Resident [place], [facility] [place] [id number] 08:30:00 14:30:00 ial Felicia 3000_H2017 2018-11-02 2018-11-02 Non-Resident [place], [facility] [place] [id number] 08:30:00 14:30:00 ial Zeus 3000_H2017 2018-11-01 2018-11-01 Non-Resident [place], [facility] [place] [id number] 08:30:00 14:30:00 ial Zeus 3000_H2017 2018-10-31 2018-10-31 Non-Resident [place], [facility] [place] [id number] 08:30:00 14:30:00 ial Zeus 3000_H2017 2018-10-30 2018-10-30 Non-Resident [place], [facility] [place] [id number] 08:30:00 14:30:00 ial Zeus 3000_H2017 2018-10-29 2018-10-29 Non-Resident [place], [facility] [place] [id number] 08:30:00 14:30:00 ial Zeus 3000_H2017 2018-10-26 2018-10-26 Non-Resident [place], [facility] [place] [id number] 08:30:00 14:30:00 ial Zeus 3000_H2017 2018-10-25 2018-10-25 Non-Resident [place], [facility] [place] [id number] 08:30:00 14:30:00 ial Zeus 3000_H2017 2018-10-24 2018-10-24 Non-Resident [place], [facility] [place] [id number] 08:30:00 14:30:00 ial Zeus 3000_H2017 2018-10-23 2018-10-23 Non-Resident [place], [facility] [place] [id number] 08:30:00 14:30:00 ial Zeus 3000_H2017 2018-10-22 2018-10-22 Non-Resident [place], [facility] [place] [id number] 08:30:00 14:30:00 ial Zeus 3000_H2017 2018-10-19 2018-10-19 Non-Resident [place], [facility] [place] [id number] 08:30:00 14:30:00 ial Zeus 3000_H2017 2018-10-18 2018-10-18 Non-Resident [place], [facility] [place] [id number] 08:30:00 14:30:00 ial Zeus 3000_H2017 2018-10-17 2018-10-17 Non-Resident [place], [facility] [place] [id number] 08:30:00 14:30:00 ial Zeus 3000_H2017 2018-10-16 2018-10-16 Non-Resident [place], [facility] [place] [id number] 08:30:00 14:30:00 ial Zeus 3000_H2017 2018-10-15 2018-10-15 Non-Resident [place], [facility] [place] [id number] 08:30:00 14:30:00 ial Zeus 3000_H2017 2018-10-11 2018-10-11 Non-Resident [place], [facility] [place] 2 [id number] 08:00:00 14:00:00 ial CECILY T _H2017 2018-10-10 2018-10-10 Non-Resident SHAW, [facility] [place] 2 [id number] 08:30:00 14:30:00 ial LATONA S [id number]_[id number] 2018-10-09 2018-10-09 Non-Resident [place], [facility] [place] 2 [id number] 08:30:00 14:30:00 ial LATONA S 2999_H2017 2018-10-08 2018-10-08 Non-Resident [place], [facility] [place] 2 [id number] 09:00:00 15:00:00 ial LATONA S _H2017 2018-10-05 2018-10-05 Non-Resident Banerjee, [facility] [place] [id number] 09:00:00 15:00:00 ial Felicia _H2017 2018-10-04 2018-10-04 Non-Resident [place], [facility] [place] [id number] 09:00:00 15:00:00 ial Felicia _H2017 2018-10-03 2018-10-03 Non-Resident [place], [facility] [place] [id number] 09:00:00 15:00:00 ial Felicia 0000_H2017 2018-10-02 2018-10-02 Non-Resident [place], [facility] [place] [id number] 09:00:00 15:00:00 ial Felicia _H2017 2018-10-01 2018-10-01 Non-Resident [place], [facility] [place] [id number] 09:00:00 15:00:00 ial Felicia _H2017 2018-09-28 2018-09-28 Non-Resident [place], [facility] [place] [id number] 08:30:00 14:30:00 ial Zeus 3000_H2017 2018-09-27 2018-09-27 Non-Resident [place], [facility] [place] [id number] 08:30:00 14:30:00 ial Zeus 3000_H2017 2018-09-26 2018-09-26 Non-Resident [place], [facility] [place] [id number] 08:30:00 14:30:00 ial Zeus 3000_H2017 2018-09-25 2018-09-25 Non-Resident [place], [facility] [place] [id number] 08:30:00 14:30:00 ial Zeus 3000_H2017 2018-09-24 2018-09-24 Non-Resident [place], [facility] [place] [id number] 08:30:00 14:30:00 ial Zeus 3000_H2017 2018-09-21 2018-09-21 Non-Resident [place], [facility] [place] [id number] 09:00:00 15:00:00 ial Felicia 0000_H2017 2018-09-19 2018-09-19 Non-Resident [place], [facility] [place] [id number] 09:00:00 15:00:00 ial Felicia 0000_H2017 2018-09-18 2018-09-18 Non-Resident [place], [facility] [place] [id number] 09:00:00 15:00:00 ial Felicia 0000_H2017 2018-09-17 2018-09-17 Non-Resident [place], [facility] [place] [id number] 09:00:00 15:00:00 ial Felicia 0000_H2017 2018-09-14 2018-09-14 Non-Resident [place], [facility] [place] [id number] 09:00:00 15:00:00 ial Felicia 0000_H2017 2018 2018 Non-Resident [place], [facility] [place] [id number] 09:00:00 15:00:00 ial Felicia 0000_H2017 2018-09-12 2018-09-12 Non-Resident [place], [facility] [place] [id number] 09:00:00 15:00:00 ial Felicia 0000_H2017 2018-09-11 2018-09-11 Non-Resident [place], [facility] [place] [id number] 09:00:00 15:00:00 ial Felicia 0000_H2017 2018-09-10 2018-09-10 Non-Resident [place], [facility] [place] [id number] 09:00:00 15:00:00 ial Felicia 0000_H2017 2018-09-07 2018-09-07 Non-Resident [place], [facility] [place] [id number] 08:30:00 14:30:00 ial Zeus 3000_H2017 2018-09-06 2018-09-06 Non-Resident [place], [facility] [place] [id number] 08:30:00 14:30:00 ial Zeus 3000_H2017 2018-09-05 2018-09-05 Non-Resident [place], [facility] [place] [id number] 08:30:00 14:30:00 ial Zeus 3000_H2017 2018-09-04 2018-09-04 Non-Resident [place], [facility] [place] [id number] 08:30:00 14:30:00 ial Zeus 3000_H2017 2018-09-03 2018-09-03 Non-Resident [place], [facility] [place] [id number] 08:30:00 14:30:00 ial Zeus 3000_H2017 2018-08-31 2018-08-31 Non-Resident [place], [facility] [place] [id number] 08:30:00 14:30:00 iaravindra Schulz 3000_H2017 2018-08-30 2018-08-30 Non-Resident MARIBELL [facility] [place] [id number] 08:30:00 14:30:00 ial Zeus 3000_H2017 2018-08-29 2018-08-29 Non-Resident NEDA [facility] [place] [id number] 09:00:00 15:00:00 iaravindra Schulz 0000_H2017 2018-08-28 2018-08-28 Non-Resident NEDA [facility] [place] [id number] 08:30:00 14:30:00 iaravindra Schulz 3000_H2017 2018-08-27 2018-08-27 Non-Resident MARIBELL [facility] [place] [id number] 08:30:00 14:30:00 jd Schulz 3000_H2017 2018-08-09 2018-08-09 [facility] 28 [id number] 00:00:00 00:00:00 PA PA 2018-07-30 2018-07-30 [facility] 28 [id number] 00:00:00 00:00:00 PA PA 2018-06-08 2018-06-08 [facility] 28 [id number] 00:00:00 00:00:00 PA PA 2018-05-10 2018-05-10 [facility] 26 [id number] 00:00:00 00:00:00 PA PA 2018-03-15 2018-03-15 Outpatient Nicky CHAIREZ II [facility] [id number] 08:53:29 23:59:00 KATIE 2018-03-15 2018-03-15 Outpatient [facility] [id number] 08:53:29 23:59:00 2018-03-14 2018-03-14 Outpatient [facility] [id number] 00:00:00 00:00:00 2018-02-07 2018-02-07 [facility] 26 [id number] 00:00:00 00:00:00 PA PA 2017-11-10 2017-11-10 [facility] 24 [id number] 00:00:00 00:00:00 PA PA 2017-09-07 2017-09-07 [facility] 24 [id number] 00:00:00 00:00:00 PA PA 2017-08-14 2017-08-14 [facility] 24 0813 00:00:00 00:00:00 PA PA 2017-06-12 2017-06-12 [facility] 23 8924 00:00:00 00:00:00 PA PA 2017-06-08 2017-06-08 [facility] 24 0523 00:00:00 00:00:00 PA PA 2017-05-22 2017-05-22 [facility] 23 6575 00:00:00 00:00:00 PA PA 2017-04-21 2017-04-21 [facility] 22 [id number] 00:00:00 00:00:00 PA PA 2017-04-19 2017-04-19 [facility] 23 [id number] 00:00:00 00:00:00 PA PA 2017-01-20 2017-01-20 [facility] 22 1609 00:00:00 00:00:00 PA PA 2016-11-22 2016-11-22 [facility] 22 4167 00:00:00 00:00:00 PA PA 2016-10-21 2016-10-21 [facility] 21 [id number] 00:00:00 00:00:00 PA PA 2016-07-22 2016-07-22 [facility] 21 [id number] 00:00:00 00:00:00 PA PA 2016-06-21 2016-06-21 [facility] 20 [id number] 00:00:00 00:00:00 PA PA 2016-04-27 2016-04-27 [facility] 20 6703 00:00:00 00:00:00 PA PA 2016-03-28 2016-03-28 [facility] 20 [id number] 00:00:00 00:00:00 PA PA 2016-03-24 2016-03-24 [facility] 20 2018 00:00:00 00:00:00 PA PA 2016-03-22 2016-03-22 [facility] 20 [id number] 00:00:00 00:00:00 PA PA 2016-02-09 2016-02-09 [facility] 20 [id number] 00:00:00 00:00:00 PA PA 2016-01-25 2016-01-25 [facility] 19 [id number] 00:00:00 00:00:00 PA PA 2015-12-29 2015-12-29 [facility] 19 [id number] 00:00:00 00:00:00 PA PA 2015-11-25 2015-11-25 [facility] 19 [id number] 00:00:00 00:00:00 PA PA 2015-10-27 2015-10-27 [facility] 19 1452 00:00:00 00:00:00 PA PA 2015-10-16 2015-10-16 [facility] 19 1220 00:00:00 00:00:00 PA PA 2015-08-21 2015-08-21 [facility] 18 6413 00:00:00 00:00:00 PA PA 2015-08-19 2015-08-19 [facility] 18 6206 00:00:00 00:00:00 PA PA 2015-08-10 2015-08-10 [facility] 18 [id number] 00:00:00 00:00:00 PA PA 2015-08-07 2015-08-07 [facility] 17 [id number] 00:00:00 00:00:00 PA PA 2015-05-08 2015-05-08 [facility] 16 [id number] 00:00:00 00:00:00 PA PA 2015-02-24 2015-02-24 [facility] 17 1146 00:00:00 00:00:00 PA PA 2015-02-06 2015-02-06 [facility] 16 [id number] 00:00:00 00:00:00 PA PA 2015-02-06 2015-02-06 [facility] 16 [id number] 00:00:00 00:00:00 PA PA 2015-01-16 2015-01-16 [facility] 16 8035 00:00:00 00:00:00 PA PA 2014-11-07 2014-11-07 [facility] 15 2305 00:00:00 00:00:00 PA PA 2014-11-03 2014-11-03 [facility] 16 1877 00:00:00 00:00:00 PA PA 2014-07-11 2014-07-11 [facility] 15 [id number] 00:00:00 00:00:00 PA PA 2014-04-11 2014-04-11 [facility] 13 8036 00:00:00 00:00:00 PA PA 2014-03-26 2014-03-26 [facility] 14 [id number] 00:00:00 00:00:00 PA PA 2014-02-18 2014-02-18 [facility] 14 1244 00:00:00 00:00:00 PA PA 2014-02-18 2014-02-18 [facility] 14 1242 00:00:00 00:00:00 PA PA 2014-01-20 2014-01-20 [facility] 13 [id number] 00:00:00 00:00:00 PA PA 2014-01-16 2014-01-16 [facility] 13 [id number] 00:00:00 00:00:00 PA PA 2014-01-09 2014-01-09 [facility] 13 0778 00:00:00 00:00:00 PA PA 2013-11-13 2013-11-13 [facility] 13 3522 00:00:00 00:00:00 PA PA 2013-10-10 2013-10-10 [facility] 12 3816 00:00:00 00:00:00 PA PA 2013-07-12 2013-07-12 [facility] 11 7340 00:00:00 00:00:00 PA PA 2013-04-12 2013-04-12 [facility] 11 0750 00:00:00 00:00:00 PA PA 2013-03-05 2013-03-05 [facility] 11 [id number] 00:00:00 00:00:00 PA PA 2013-01-11 2013-01-11 [facility] 11 [id number] 00:00:00 00:00:00 PA PA 2012-10-17 2012-10-17 [facility] 97 [id number] 00:00:00 00:00:00 PA PA 2012-08-02 2012-08-02 [facility] 98 [id number] 00:00:00 00:00:00 PA PA 2012-07-19 2012-07-19 [facility] 90 [id number] 00:00:00 00:00:00 PA PA 2012-04-25 2012-04-25 [facility] 90 [id number] 00:00:00 00:00:00 PA PA 2012-04-23 2012-04-23 [facility] 90 [id number] 00:00:00 00:00:00 PA PA 2012-04-18 2012-04-18 [facility] 85 [id number] 00:00:00 00:00:00 PA PA 2011-10-18 2011-10-18 [facility] 68 [id number] 00:00:00 00:00:00 PA PA 2011-08-30 2011-08-30 [facility] 72 [id number] 00:00:00 00:00:00 PA PA 2011-08-17 2011-08-17 [facility] 70 [id number] 00:00:00 00:00:00 PA PA 2011-08-03 2011-08-03 [facility] 69 [id number] 00:00:00 00:00:00 PA PA 2011-08-03 2011-08-03 [facility] 69 [id number] 00:00:00 00:00:00 PA PA 2011-07-19 2011-07-19 [facility] 60 [id number] 00:00:00 00:00:00 PA PA 2011-04-28 2011-04-28 [facility] 61 [id number] 00:00:00 00:00:00 PA PA 2011-04-18 2011-04-18 [facility] 50 [id number] 00:00:00 00:00:00 PA PA 2011-04-08 2011-04-08 [facility] 60 [id number] 00:00:00 00:00:00 PA PA 2011-03-29 2011-03-29 [facility] 59 [id number] 00:00:00 00:00:00 PA PA 2010-12-17 2010-12-17 [facility] 50 [id number] 00:00:00 00:00:00 PA PA 2010-09-09 2010-09-09 [facility] 31 [id number] 00:00:00 00:00:00 PA PA 2010-06-22 2010-06-22 [facility] 34 [id number] 00:00:00 00:00:00 PA PA 2010-06-22 2010-06-22 [facility] 34 [id number] 00:00:00 00:00:00 PA PA 2010-06-22 2010-06-22 [facility] 34 [id number] 00:00:00 00:00:00 PA PA 2010-05-12 2010-05-12 [facility] 25 [id number] 00:00:00 00:00:00 PA PA 2010-03-12 2010-03-12 [facility] 25 [id number] 00:00:00 00:00:00 PA PA Immunizations Ordered Immunization Filled Immunization Date Status Commen ts Refusal Reason Name Name Prevnar 13 2019-11-12 Completed 11:35:00 Payers Payer Name Policy Type Policy Number Effective Date Expiration D ate MEDICAID [place] [employer] [id number] Social History Smoking Status Start Date Stop Date Unknown if ever smoked Vital Signs Vital Name Observation Time Observation Value Comments height 2019-11-29 15:30:00 67 [in_us] weight 2019-11-29 15:30:00 203 [lb_av] bmi 2019-11-29 15:30:00 31.79 kg/m2 heart rate 2019-11-29 15:30:00 90 /min blood pressure systolic 2019-11-29 15:30:00 122 mm[Hg] blood pressure diastolic 2019-11-29 15:30:00 72 mm[Hg] height 2019-11-12 10:30:00 67 [in_us] weight 2019-11-12 10:30:00 204.6 [lb_av] bmi 2019-11-12 10:30:00 32.04 kg/m2 blood pressure systolic 2019-11-12 10:30:00 110 mm[Hg] blood pressure diastolic 2019-11-12 10:30:00 60 mm[Hg] height 2019-08-14 09:00:00 67 [in_us] weight 2019-08-14 09:00:00 208 [lb_av] bmi 2019-08-14 09:00:00 32.57 kg/m2 heart rate 2019-08-14 09:00:00 85 /min blood pressure systolic 2019-08-14 09:00:00 120 mm[Hg] blood pressure diastolic 2019-08-14 09:00:00 70 mm[Hg] height 2019-05-27 09:15:00 67 [in_us] weight 2019-05-27 09:15:00 203 [lb_av] bmi 2019-05-27 09:15:00 31.79 kg/m2 heart rate 2019-05-27 09:15:00 93 /min blood pressure systolic 2019-05-27 09:15:00 114 mm[Hg] blood pressure diastolic 2019-05-27 09:15:00 68 mm[Hg] height 2019-05-20 13:45:00 67 [in_us] weight 2019-05-20 13:45:00 208 [lb_av] bmi 2019-05-20 13:45:00 32.57 kg/m2 heart rate 2019-05-20 13:45:00 101 /min blood pressure systolic 2019-05-20 13:45:00 116 mm[Hg] blood pressure diastolic 2019-05-20 13:45:00 76 mm[Hg] height 2019-05-14 09:00:00 67 [in_us] weight 2019-05-14 09:00:00 207 [lb_av] bmi 2019-05-14 09:00:00 32.42 kg/m2 blood pressure systolic 2019-05-14 09:00:00 114 mm[Hg] blood pressure diastolic 2019-05-14 09:00:00 60 mm[Hg] height 2019-04-07 15:15:00 67 [in_us] weight 2019-04-07 15:15:00 229.9 [lb_av] bmi 2019-04-07 15:15:00 36.00 kg/m2 heart rate 2019-04-07 15:15:00 98 /min temperature 2019-04-07 15:15:00 98.4 [degF] blood pressure systolic 2019-04-07 15:15:00 110 mm[Hg] blood pressure diastolic 2019-04-07 15:15:00 55 mm[Hg] height 2019-02-08 09:00:00 67 [in_us] weight 2019-02-08 09:00:00 216.0 [lb_av] bmi 2019-02-08 09:00:00 33.83 kg/m2 heart rate 2019-02-08 09:00:00 79 /min blood pressure systolic 2019-02-08 09:00:00 123 mm[Hg] blood pressure diastolic 2019-02-08 09:00:00 72 mm[Hg] height 2018-11-08 09:00:00 67 [in_us] weight 2018-11-08 09:00:00 206.2 [lb_av] bmi 2018-11-08 09:00:00 32.29 kg/m2 heart rate 2018-11-08 09:00:00 80 /min blood pressure systolic 2018-11-08 09:00:00 158 mm[Hg] blood pressure diastolic 2018-11-08 09:00:00 88 mm[Hg]
--- NOTE | 2020-05-08 20:31 | PDOC PROGRESS REPORT ---
Subjective Date:: 05/08/20 Subjective:: Patient seen by the bedside, she was admitted yesterday for the management of an emia due to acute GI blood loss, patient refused blood transfusion, presently no active bleeding, consult surgicalist for endoscopy Reason For Visit: ANEMIA,DIZZINESS Physical Exam Vital Signs: Temp Pulse Resp BP Pulse Ox 97.9 F 72 18 108/92 H 97 05/08/20 16:00 05/08/20 16:00 05/08/20 16:00 05/08/20 16:00 05/08/20 16:00 Intake & Output 05/07/20 05/08/20 05/09/20 06:59 06:59 06:59 Intake Total 350 480 Balance 350 480 Weight 95.9 kg 95.9 kg General appearance: PRESENT: no acute distress Eye exam: PRESENT: PERRLA Respiratory exam: PRESENT: clear to auscultation ifeoma Cardiovascular exam: PRESENT: +S1, +S2 GI/Abdominal exam: PRESENT: soft Neurological exam: PRESENT: alert, CN II-XII grossly intact Results Laboratory Results: 05/08/20 02:23 05/07/20 20:44 05/07/20 05/07/20 05/07/20 20:44 20:44 23:51 WBC RBC Hgb Hct MCV MCH MCHC RDW Plt Count Seg Neutrophils % Sodium 140.1 Potassium 4.3 Chloride 106 Carbon Dioxide 23 Anion Gap 11 BUN 23 H Creatinine 1.10 Est GFR ( Amer) > 60 Glucose 78 Calcium 8.9 TSH 2.01 Free T4 1.58 Urine Color YELLOW Urine Appearance SLIGHTLY-CLOUDY Urine pH 5.0 Ur Specific [place] 1.007 Urine Protein NEGATIVE Urine Glucose (UA) >=500 H Urine Ketones TRACE H Urine Blood NEGATIVE Urine Nitrite NEGATIVE Ur Leukocyte Esterase SMALL H Urine WBC (Auto) 49 Urine RBC (Auto) 1 05/08/20 02:23 WBC 8.0 RBC 2.37 L Hgb 7.0 L Hct 21.3 L MCV 90 MCH 29.4 MCHC 32.7 RDW 17.0 H Plt Count 421 Seg Neutrophils % 66.0 Sodium Potassium Chloride Carbon Dioxide Anion Gap BUN Creatinine Est GFR ( Amer) Glucose Calcium TSH Free T4 Urine Color Urine Appearance Urine pH Ur Specific [place] Urine Protein Urine Glucose (UA) Urine Ketones Urine Blood Urine Nitrite Ur Leukocyte Esterase Urine WBC (Auto) Urine RBC (Auto) 05/07/20 05/07/20 05/08/20 20:44 20:44 02:23 Creatine Kinase 172 H 164 H Troponin I 0.017 05/08/20 05/08/20 05/08/20 02:23 06:54 06:54 Creatine Kinase 141 H Troponin I 0.031 0.027 Impressions: Chest X-Ray 05/07/20 00:00 IMPRESSION: Small pleural effusions. Assessment & Plan - Diagnosis (1) Acute gastrointestinal bleeding Is this a current diagnosis for this admission?: Yes Plan: She has acute blood loss anemia, consult endoscopist for EGD and colonoscopy (2) Status post coronary artery bypass graft Is this a current diagnosis for this admission?: Yes (3) Physical deconditioning Is this a current diagnosis for this admission?: Yes - Time Time Spent with patient: 25-34 minutes Anticipated discharge: SNF Anticipated DC Timeframe: within 72 hours
[2020-05-08] MEDS: INSULIN GLARGINE,HUM.REC.ANLOG 1,000 UNIT/10 ML VIAL SUBCUT SCH (22:39)
[2020-05-08] MEDS: CITALOPRAM HYDROBROMIDE 20 MG TABLET PO SCH (22:39)
[2020-05-08] MEDS: ATORVASTATIN CALCIUM 40 MG TABLET PO SCH (22:40)
[2020-05-08] MEDS: BENZTROPINE MESYLATE 1 MG TABLET PO SCH (22:41)
[2020-05-08] MEDS: RAMIPRIL 10 MG CAPSULE PO SCH (22:43)
[2020-05-08] MEDS: FERROUS SULFATE 325 MG TABLET PO SCH (22:44)
[2020-05-08] MEDS: DOCUSATE SODIUM 100 MG CAPSULE PO SCH (22:44)
[2020-05-08] MEDS: METFORMIN HCL 500 MG TABLET PO SCH (22:45)
[2020-05-08] MEDS: METOPROLOL SUCCINATE 25 MG TAB.SR.24H PO SCH (22:45)
[2020-05-09 07:29] LABS: ABSOLUTE EOSINOPHILS # (AUTO) 0.1 10^3/uL (0.0-0.6); ABSOLUTE LYMPHOCYTES (AUTO) 1.4 10^3/uL (0.5-4.7); ABSOLUTE NEUT (AUTO) 5.4 10^3/uL (1.7-8.2); BASOPHILS % (AUTO) 0.4 % (0-2); EOSINOPHILS % (AUTO) 0.8 % (0-6); HEMATOCRIT 21.1 % (36.0-47.0); LYMPHOCYTES % (AUTO) 17.4 % (13-45); MEAN CORPUSCULAR HEMOGLOBIN 29.3 pg (27.0-33.4); MEAN CORPUSCULAR VOLUME 92 fl (80-97); MONOCYTES % (AUTO) 12.4 % (3-13); PLATELET COUNT 414 10^3/uL (150-450); RED BLOOD COUNT 2.31 10^6/uL (3.72-5.28); RED CELL DISTRIBUTION WIDTH 17.1 % (11.5-14.0); TOTAL CELLS COUNTED % (AUTO) 100 %; WHITE BLOOD COUNT 7.8 10^3/uL (4.0-10.5)
--- NOTE | 2020-05-09 07:58 | PDOC CONSULTATION ---
Consultation Consult Date: 05/09/20 Provider Consulted: SURGICAL SURGICALIST Consult reason:: Anemia, malaise, questionable GI bleeding. History of Present Illness Admission Date/PCP: 05/07/20 16:42 ESVIN VITAL MD History of Present Illness: LAURA EDOUARD is a 64 year old female seen at the request of Dr. Vital. The patient presented with anemia. She is immediately status post CABG. She was just released from the hospital on . The patient is a very poor historian. She cannot tell me what medication she is on at home (or if his medications included Plavix or other antiplatelet agents). She denies heartburn, nausea, vomiting, hematemesis, hematochezia. She reports that her sternal incision is now draining foul-smelling fluid. She reports that she is a Confucianism, and does not want to take blood products. She does report fatigue and malaise. She also reports pain at her chest incision. She denies shortness of breath, headache, fevers, chills. Past Medical History Cardiac Medical History: Reports: Coronary Artery Disease, Hyperlipidema, Hypertension Denies: Myocardial Infarction Pulmonary Medical History: Denies: Asthma, Bronchitis, Chronic Obstructive Pulmonary Disease (COPD), Pneumonia Neurological Medical History: Denies: Seizures Endocrine Medical History: Reports: Diabetes Mellitus Type 2 Musculoskeltal Medical History: Reports: Arthritis Psychiatric Medical History: Reports: Depression, Schizoaffective Disorder Hematology: Reports: Anemia Past Surgical History Past Surgical History: Reports: Coronary Artery Bypass Graft - Within the last 1-2 weeks, Gastric Bypass Surgery, Orthopedic Surgery - Left Hip Denies: Pacemaker Social History Smoking Status: Former Smoker Frequency of Alcohol Use: None Hx Recreational Drug Use: No Hx Prescription Drug Abuse: No Family History Family History: None Parental Family History Reviewed: Yes Children Family History Reviewed: Yes Sibling(s) Family History Reviewed.: Yes Medication/Allergy Home Medications: Benztropine Mesylate [Benztropine Mesylate 0.5 mg Tablet] 0.5 mg PO QHS 02/26/19 Cholecalciferol (Vitamin D3) [Vitamin D3 1000 Unit Tablet] 1,000 unit PO DAILY 02/26/19 Citalopram Hydrobromide [Citalopram HBr] 10 mg PO QHS 02/26/19 Dapagliflozin Propanediol [Farxiga] 10 mg PO DAILY 02/26/19 Furosemide [Lasix 40 mg Tablet] 40 mg PO QAM 02/26/19 Haloperidol [Haldol 5 mg Tablet] 5 mg PO QHS 02/26/19 Insulin Glargine,Hum.rec.anlog [Lantus Insulin 100 Unit/1 ml 10 ml] 38 unit SUBCUT QHS 02/26/19 Insulin Lispro [Humalog Insulin (Lispro) 100 unit/mL] 0 unit SUBCUT .SL IDINGSCALE 02/26/19 Metformin HCl [Glucophage 500 mg Tablet] 500 mg PO BID 02/26/19 Pioglitazone HCl [Actos] 30 mg PO DAILY 02/26/19 Amiodarone HCl [Cordarone 200 mg Tablet] 200 mg PO DAILY 05/07/20 Amlodipine Besylate [Norvasc 10 mg Tablet] 5 mg PO DAILY 05/07/20 Aspirin [Adult Low Dose Aspirin EC] 81 mg PO DAILY 05/07/20 Atorvastatin Calcium [Lipitor 40 mg Tablet] 40 mg PO QHS 05/07/20 Docusate Sodium [Colace 100 mg Capsule] 200 mg PO DAILY 05/07/20 Ferrous Sulfate [Feosol 325 mg Tablet] 325 mg PO BID 05/07/20 Isosorbide Mononitrate [Imdur 30 mg Tablet.er] 30 mg PO DAILY 05/07/20 Metoprolol Succinate [Toprol Xl 25 mg Tab.sr] 50 mg PO BID 05/07/20 Oxycodone HCl [Oxy-Ir 5 mg Tablet] 5 mg PO DAILYP PRN 05/07/20 Ramipril [Altace 10 mg Capsule] 10 mg PO DAILY 05/07/20 Sennosides [Senna] 8.6 mg PO DAILYP PRN 05/07/20 Allergies/Adverse Reactions: No Known Allergies Allergy (Verified 03/08/19 13:17) Review of Systems Constitutional: PRESENT: fatigue, weakness. ABSENT: anorexia, chills Eyes: ABSENT: visual disturbances Ears: ABSENT: hearing changes Nose, Mouth, and Throat: ABSENT: sore throat Cardiovascular: PRESENT: chest pain, other - Drainage from sternal wound Respiratory: ABSENT: cough Gastrointestinal: ABSENT: abdominal pain, bloating, hematemesis, hematochezia, nausea, vomiting Genitourinary: ABSENT: dysuria Musculoskeletal: ABSENT: back pain Integumentary: ABSENT: pruritus, rash Neurological: PRESENT: dizziness, weakness Endocrine: ABSENT: cold intolerance, heat intolerance Hematologic/Lymphatic: ABSENT: lymphadenopathy Physical Exam Vital Signs: Temp Pulse Resp BP Pulse Ox 98.5 F 67 18 109/53 L 100 05/09/20 04:00 05/09/20 04:00 05/09/20 04:00 05/09/20 04:00 05/09/20 04:00 Intake & Output 05/08/20 05/09/20 05/10/20 06:59 06:59 06:59 Intake Total 350 1130 Balance 350 1130 Weight 95.9 kg 97.3 kg General appearance: PRESENT: no acute distress, cooperative Head exam: PRESENT: atraumatic, normocephalic Eye exam: PRESENT: EOMI, PERRLA. ABSENT: scleral icterus Mouth exam: PRESENT: moist, neck supple Neck exam: ABSENT: meningismus, tenderness, thyromegaly, tracheal deviation Respiratory exam: PRESENT: other - Midline sternal wound with serous drainage, mildly foul-smelling. The skin does not appear to be widely dehisced. The edges of the incision are slightly macerated Cardiovascular exam: ABSENT: tachycardia Vascular exam: PRESENT: pallor GI/Abdominal exam: PRESENT: soft. ABSENT: distended, firm, guarding, tenderness Rectal exam: PRESENT: deferred Extremities exam: ABSENT: clubbing Musculoskeletal exam: ABSENT: deformity Neurological exam: PRESENT: alert, awake, oriented to person, oriented to place, oriented to time, CN II-XII grossly intact Psychiatric exam: ABSENT: agitated, anxious, depressed Focused psych exam: ABSENT: delusional Skin exam: ABSENT: cyanosis, erythema, jaundice Results Laboratory Results: 05/07/20 20:44 05/08/20 20:45 Stool Occult Blood NEGATIVE 05/07/20 05/07/20 05/08/20 20:44 20:44 02:23 Creatine Kinase 172 H 164 H Troponin I 0.017 05/08/20 05/08/20 05/08/20 02:23 06:54 06:54 Creatine Kinase 141 H Troponin I 0.031 0.027 Impressions: Chest X-Ray 05/07/20 00:00 IMPRESSION: Small pleural effusions. Assessment & Plan - Diagnosis (1) Status post coronary artery bypass graft Is this a current diagnosis for this admission?: Yes (2) Acute anemia Is this a current diagnosis for this admission?: Yes - Plan Summary Plan Summary: 64-year-old female recently status post CABG. She is a Confucianism. She presented with anemia and orthostasis. She denies any nausea, vomiting, hematochezia, or hematemesis. Her hemoglobin is 7 this morning. At this time, I cannot identify any acute/active GI bleeding. Her anemia may be a function of a combination of her refusal of blood products, recent major surgery, and antiplatelet agents. Any intervention may be risky, considering her recent coronary operation. I would avoid operative intervention, unless absolutely necessary. Continue with conservative treatment at this time. Stop all an tiplatelet agents or anticoagulants. Draw labs through pediatric tubes. Monitor patient closely for signs of decompensation. Surgery will follow.
[2020-05-09 09:24] LABS: HEMOGLOBIN 6.8 g/dL (12.0-15.5)
[2020-05-09] MEDS: METOPROLOL SUCCINATE 25 MG TAB.SR.24H PO SCH ×2 (10:00→17:01)
[2020-05-09] MEDS: ISOSORBIDE MONONITRATE 30 MG TAB.ER.24H PO SCH (10:00)
[2020-05-09] MEDS: AMLODIPINE BESYLATE 10 MG TABLET PO SCH (10:01)
[2020-05-09] MEDS: METFORMIN HCL 500 MG TABLET PO SCH ×2 (10:01→17:01)
[2020-05-09] MEDS: CHOLECALCIFEROL (D3) 1,000 UNIT (25 MCG) TABLET PO SCH (10:01)
[2020-05-09] MEDS: AMIODARONE HCL 200 MG TABLET PO SCH (10:01)
[2020-05-09] MEDS: DOCUSATE SODIUM 100 MG CAPSULE PO SCH (10:01)
[2020-05-09] MEDS: FERROUS SULFATE 325 MG TABLET PO SCH ×2 (10:01→17:01)
[2020-05-09] MEDS: RAMIPRIL 10 MG CAPSULE PO SCH (10:01)
--- NOTE | 2020-05-09 13:29 | PDOC PROGRESS REPORT ---
Subjective Date:: 05/09/20 Subjective:: Patient seen by the bedside, hemoglobin 6.8, she continues to refuse blood trans fusion because of her zoya, she is a Jehovah witness. There is no active bleed consultation was obtained from the surgeon for EGD and colonoscopy, the surgeon advised against this procedure because she just had CABG unless if actively bleeding Reason For Visit: ANEMIA,DIZZINESS Physical Exam Vital Signs: Temp Pulse Resp BP Pulse Ox 98.5 F 77 18 141/75 H 97 05/09/20 08:35 05/09/20 08:00 05/09/20 08:00 05/09/20 08:00 05/09/20 08:00 Intake & Output 05/08/20 05/09/20 05/10/20 06:59 06:59 06:59 Intake Total 350 1130 Balance 350 1130 Weight 95.9 kg 97.3 kg General appearance: PRESENT: no acute distress Eye exam: PRESENT: PERRLA Respiratory exam: PRESENT: clear to auscultation ifeoma Cardiovascular exam: PRESENT: +S1, +S2 GI/Abdominal exam: PRESENT: soft Results Laboratory Results: 05/09/20 06:37 05/07/20 20:44 05/08/20 05/09/20 20:45 06:37 WBC 7.8 RBC 2.31 L Hgb 6.8 L Hct 21.1 L MCV 92 MCH 29.3 MCHC 32.0 RDW 17.1 H Plt Count 414 Seg Neutrophils % 69.0 Stool Occult Blood NEGATIVE 05/07/20 05/07/20 05/08/20 20:44 20:44 02:23 Creatine Kinase 172 H 164 H Troponin I 0.017 05/08/20 05/08/20 05/08/20 02:23 06:54 06:54 Creatine Kinase 141 H Troponin I 0.031 0.027 Impressions: Chest X-Ray 05/07/20 00:00 IMPRESSION: Small pleural effusions. Assessment & Plan - Diagnosis (1) Acute gastrointestinal bleeding Is this a current diagnosis for this admission?: Yes (2) Status post coronary artery bypass graft Is this a current diagnosis for this admission?: Yes (3) Physical deconditioning Is this a current diagnosis for this admission?: Yes (4) Anemia Qualifiers: Anemia type: other cause Other causes of anemia: acute posthemorrhagic Qualified Code(s): D62 - Acute posthemorrhagic anemia Is this a current diagnosis for this admission?: Yes Plan: Anemia due to GI bleed, patient refused blood transfusion not actively bleeding, will continue to monitor patient - Time Time Spent with patient: 25-34 minutes Level of Care: MEDICAL Smoking Cessation Education: 3 to 10 minutes Medications reviewed and adjusted accordingly: Yes Anticipated discharge: Home Anticipated DC Timeframe: within 72 hours - Inpatient Certification Based on my medical assessment, after consideration of the patient's comorbidities, presenting symptoms, or acuity I expect that the services needed warrant INPATIENT care.: Yes I certify that my determination is in accordance with my understanding of Medicare's requirements for reasonable and necessary INPATIENT services [42 CFR 412.3e].: Yes
[2020-05-09] MEDS: BENZTROPINE MESYLATE 1 MG TABLET PO SCH (22:58)
[2020-05-09] MEDS: ATORVASTATIN CALCIUM 40 MG TABLET PO SCH (22:58)
[2020-05-09] MEDS: INSULIN GLARGINE,HUM.REC.ANLOG 1,000 UNIT/10 ML VIAL SUBCUT SCH (22:59)
[2020-05-09] MEDS: CITALOPRAM HYDROBROMIDE 20 MG TABLET PO SCH (22:59)
[2020-05-10 06:31] LABS: ABSOLUTE EOSINOPHILS # (AUTO) 0.1 10^3/uL (0.0-0.6); ABSOLUTE LYMPHOCYTES (AUTO) 1.7 10^3/uL (0.5-4.7); ABSOLUTE NEUT (AUTO) 5.1 10^3/uL (1.7-8.2); BASOPHILS % (AUTO) 0.4 % (0-2); HEMATOCRIT 21.2 % (36.0-47.0); LYMPHOCYTES % (AUTO) 21.5 % (13-45); MEAN CORPUSCULAR HEMOGLOBIN 29.5 pg (27.0-33.4); MEAN CORPUSCULAR VOLUME 89 fl (80-97); PLATELET COUNT 414 10^3/uL (150-450); RED BLOOD COUNT 2.37 10^6/uL (3.72-5.28); RED CELL DISTRIBUTION WIDTH 16.8 % (11.5-14.0); SEGMENTED NEUTROPHILS % (AUTO) 64.1 % (42-78); TOTAL CELLS COUNTED % (AUTO) 100 %
[2020-05-10] MEDS ORDERED: INFLUENZA QUAD (6MOS+) 2020-21 VAC 0.5 ML SYR IM ONE (08:00)
--- NOTE | 2020-05-10 08:58 | PDOC PROGRESS REPORT ---
Subjective Date:: 05/10/20 Subjective:: feels ok eating reg diet Reason For Visit: ANEMIA,DIZZINESS Physical Exam Vital Signs: Temp Pulse Resp BP Pulse Ox 97.8 F 60 17 112/46 L 98 05/10/20 04:00 05/10/20 04:00 05/10/20 04:00 05/10/20 04:00 05/10/20 04:00 Intake & Output 05/09/20 05/10/20 05/11/20 06:59 06:59 06:59 Intake Total 1130 847 Balance 1130 847 Weight 97.3 kg 95.7 kg General appearance: PRESENT: no acute distress Head exam: PRESENT: normocephalic Eye exam: PRESENT: EOMI Ear exam: PRESENT: TM's normal bilaterally Mouth exam: PRESENT: moist Neck exam: PRESENT: full ROM Cardiovascular exam: PRESENT: RRR Pulses: PRESENT: normal femoral pulses Vascular exam: PRESENT: normal capillary refill Breast: PRESENT: Normal GI/Abdominal exam: PRESENT: soft Extremities exam: PRESENT: full ROM Musculoskeletal exam: PRESENT: full ROM Neurological exam: PRESENT: alert, awake, oriented to person, oriented to place Psychiatric exam: PRESENT: appropriate affect Skin exam: PRESENT: dry Results Laboratory Results: 05/10/20 04:54 05/07/20 20:44 05/09/20 05/10/20 06:37 04:54 WBC 7.8 8.0 RBC 2.31 L 2.37 L Hgb 6.8 L 7.0 L Hct 21.1 L 21.2 L MCV 92 89 MCH 29.3 29.5 MCHC 32.0 33.0 RDW 17.1 H 16.8 H Plt Count 414 414 Seg Neutrophils % 69.0 64.1 05/08/20 20:45 Clean Catch Midstream Urine Culture - Final Proteus Mirabilis Klebsiella Pneumoniae 05/07/20 05/07/20 05/08/20 20:44 20:44 02:23 Creatine Kinase 172 H 164 H Troponin I 0.017 05/08/20 05/08/20 05/08/20 02:23 06:54 06:54 Creatine Kinase 141 H Troponin I 0.031 0.027 Impressions: Chest X-Ray 05/07/20 00:00 IMPRESSION: Small pleural effusions. Assessment & Plan - Time Anticipated Discharge Disposition: unk Anticipated Discharge Timeframe: unk - Plan Summary Plan Summary: now further bloody bm's hb sl up today to 7 surgery will sign off for now please consult if necessary.
--- NOTE | 2020-05-10 09:04 | EKG REPORT ---
SEVERITY:- ABNORMAL ECG - SINUS RHYTHM LEFT AXIS DEVIATION LOW VOLTAGE IN FRONTAL LEADS NONSPECIFIC T ABNORMALITIES, DIFFUSE LEADS : Confirmed by: Narendra Sanchez 10-May-2020 09:02:51
[2020-05-10] MEDS: DOCUSATE SODIUM 100 MG CAPSULE PO SCH (10:38)
[2020-05-10] MEDS: AMIODARONE HCL 200 MG TABLET PO SCH (10:39)
[2020-05-10] MEDS: RAMIPRIL 10 MG CAPSULE PO SCH (10:39)
[2020-05-10] MEDS: METFORMIN HCL 500 MG TABLET PO SCH ×2 (10:39→18:07)
[2020-05-10] MEDS: METOPROLOL SUCCINATE 25 MG TAB.SR.24H PO SCH ×2 (10:39→18:07)
[2020-05-10] MEDS: ISOSORBIDE MONONITRATE 30 MG TAB.ER.24H PO SCH (10:40)
[2020-05-10] MEDS: CHOLECALCIFEROL (D3) 1,000 UNIT (25 MCG) TABLET PO SCH (10:40)
[2020-05-10] MEDS: AMLODIPINE BESYLATE 10 MG TABLET PO SCH (10:40)
[2020-05-10] MEDS: FERROUS SULFATE 325 MG TABLET PO SCH ×2 (10:41→18:07)
--- NOTE | 2020-05-10 13:57 | PDOC PROGRESS REPORT ---
Subjective Date:: 05/10/20 Subjective:: Patient seen by the bedside, there is no active GI bleed, she has persistent low hemoglobin, 7 today, refused blood transfusion. Continue present line of management Reason For Visit: ANEMIA,DIZZINESS Physical Exam Vital Signs: Temp Pulse Resp BP Pulse Ox 97.8 F 60 17 112/46 L 98 05/10/20 04:00 05/10/20 04:00 05/10/20 04:00 05/10/20 04:00 05/10/20 04:00 Intake & Output 05/09/20 05/10/20 05/11/20 06:59 06:59 06:59 Intake Total 1130 847 Balance 1130 847 Weight 97.3 kg 95.7 kg General appearance: PRESENT: no acute distress Eye exam: PRESENT: PERRLA Respiratory exam: PRESENT: clear to auscultation ifeoma Cardiovascular exam: PRESENT: +S1, +S2 GI/Abdominal exam: PRESENT: soft Neurological exam: PRESENT: alert, CN II-XII grossly intact Results Laboratory Results: 05/10/20 04:54 05/07/20 20:44 05/10/20 04:54 WBC 8.0 RBC 2.37 L Hgb 7.0 L Hct 21.2 L MCV 89 MCH 29.5 MCHC 33.0 RDW 16.8 H Plt Count 414 Seg Neutrophils % 64.1 05/08/20 20:45 Clean Catch Midstream Urine Culture - Final Proteus Mirabilis Klebsiella Pneumoniae 05/07/20 05/07/20 05/08/20 20:44 20:44 02:23 Creatine Kinase 172 H 164 H Troponin I 0.017 05/08/20 05/08/20 05/08/20 02:23 06:54 06:54 Creatine Kinase 141 H Troponin I 0.031 0.027 Impressions: Chest X-Ray 05/07/20 00:00 IMPRESSION: Small pleural effusions. Assessment & Plan - Diagnosis (1) Acute gastrointestinal bleeding Is this a current diagnosis for this admission?: Yes Plan: She refused blood transfusion because of her zoya she is Jehovah witness. There is no active GI bleed at this time, she may need EGD and colonoscopy but she recently had coronary bypass grafting, the surgeons are reluctant to proceed with EGD and colonoscopy. I spoke to Dr. Dionicio MCNALLY about the possibility of EGD or colonoscopy sometime in the week. The reticulocyte count is elevated suggesting functioning bone marrow, no indication for Procrit., No indication for iron infusion, the iron indices are normal suggesting that the anemia is not chronic blood loss anemia most likely is a recent blood loss. (2) Status post coronary artery bypass graft Is this a current diagnosis for this admission?: Yes (3) Physical deconditioning Is this a current diagnosis for this admission?: Yes Plan: There is severe physical deconditioning she will need physical therapy, (4) Anemia Qualifiers: Anemia type: other cause Other causes of anemia: acute posthemorrhagic Qualified Code(s): D62 - Acute posthemorrhagic anemia Is this a current diagnosis for this admission?: Yes (5) Type 2 diabetes mellitus with diabetic polyneuropathy Qualifiers: Diabetes mellitus nursing home insulin use: with joint terminal attack controller use Qualified Code(s): E11.42 - Type 2 diabetes mellitus with diabetic polyneuropathy; Z79.4 - nursing home (current) use of insulin Is this a current diagnosis for this admission?: Yes - Time Time Spent with patient: 25-34 minutes Level of Care: MEDICAL Medications reviewed and adjusted accordingly: Yes Anticipated discharge: SNF Anticipated DC Timeframe: within 72 hours
[2020-05-10] MEDS: CITALOPRAM HYDROBROMIDE 20 MG TABLET PO SCH (21:48)
[2020-05-10] MEDS: BENZTROPINE MESYLATE 1 MG TABLET PO SCH (21:49)
[2020-05-10] MEDS: INSULIN GLARGINE,HUM.REC.ANLOG 1,000 UNIT/10 ML VIAL SUBCUT SCH (21:49)
[2020-05-10] MEDS: ATORVASTATIN CALCIUM 40 MG TABLET PO SCH (21:49)
[2020-05-11] MEDS: METOPROLOL SUCCINATE 25 MG TAB.SR.24H PO SCH ×2 (10:06→17:27)
[2020-05-11] MEDS: CHOLECALCIFEROL (D3) 1,000 UNIT (25 MCG) TABLET PO SCH (10:07)
[2020-05-11] MEDS: AMLODIPINE BESYLATE 10 MG TABLET PO SCH (10:07)
[2020-05-11] MEDS: ISOSORBIDE MONONITRATE 30 MG TAB.ER.24H PO SCH (10:07)
[2020-05-11] MEDS: FERROUS SULFATE 325 MG TABLET PO SCH ×2 (10:07→17:27)
[2020-05-11] MEDS: METFORMIN HCL 500 MG TABLET PO SCH ×2 (10:07→17:27)
[2020-05-11] MEDS: DOCUSATE SODIUM 100 MG CAPSULE PO SCH (10:07)
[2020-05-11] MEDS: RAMIPRIL 10 MG CAPSULE PO SCH (10:09)
[2020-05-11] MEDS: AMIODARONE HCL 200 MG TABLET PO SCH (10:09)
--- NOTE | 2020-05-11 21:25 | PDOC PROGRESS REPORT ---
Subjective Date:: 05/11/20 Subjective:: Patient with no active GI bleed, possible discharge to halfway for rehabili tation Reason For Visit: ANEMIA,DIZZINESS Physical Exam Vital Signs: Temp Pulse Resp BP Pulse Ox 98.4 F 72 18 126/51 H 97 05/11/20 19:47 05/11/20 19:47 05/11/20 19:47 05/11/20 19:47 05/11/20 19:47 Intake & Output 05/10/20 05/11/20 05/12/20 06:59 06:59 06:59 Intake Total 847 740 550 Balance 847 740 550 Weight 95.7 kg 94.9 kg General appearance: PRESENT: no acute distress Eye exam: PRESENT: conjunctiva pale, PERRLA Respiratory exam: PRESENT: clear to auscultation ifeoma Cardiovascular exam: PRESENT: +S1, +S2 GI/Abdominal exam: PRESENT: soft Neurological exam: PRESENT: alert Results Laboratory Results: 05/10/20 04:54 05/07/20 20:44 05/07/20 05/07/20 05/08/20 20:44 20:44 02:23 Creatine Kinase 172 H 164 H Troponin I 0.017 05/08/20 05/08/20 05/08/20 02:23 06:54 06:54 Creatine Kinase 141 H Troponin I 0.031 0.027 Impressions: Chest X-Ray 05/07/20 00:00 IMPRESSION: Small pleural effusions. Assessment & Plan - Diagnosis (1) Acute gastrointestinal bleeding Is this a current diagnosis for this admission?: Yes Plan: She refused blood transfusion because of her zoya she is Jehovah witness. There is no active GI bleed at this time, she may need EGD and colonoscopy but she recently had coronary bypass grafting, the surgeons are reluctant to proceed with EGD and colonoscopy. I spoke to Dr. Dionicio MCNALLY about the possibility of EGD or colonoscopy sometime in the week. The reticulocyte count is elevated suggesting functioning bone marrow, no indication for Procrit., No indication for iron infusion, the iron indices are normal suggesting that the anemia is not chronic blood loss anemia most likely is a recent blood loss. (2) Status post coronary artery bypass graft Is this a current diagnosis for this admission?: Yes (3) Physical deconditioning Is this a current diagnosis for this admission?: Yes Plan: There is severe physical deconditioning she will need physical therapy, (4) Anemia Qualifiers: Anemia type: other cause Other causes of anemia: acute posthemorrhagic Qualified Code(s): D62 - Acute posthemorrhagic anemia Is this a current diagnosis for this admission?: Yes (5) Type 2 diabetes mellitus with diabetic polyneuropathy Qualifiers: Diabetes mellitus termite treater helper insulin use: with termite treater helper use Qualified Code(s): E11.42 - Type 2 diabetes mellitus with diabetic polyneuropathy; Z79.4 - care home (current) use of insulin Is this a current diagnosis for this admission?: Yes - Time Time Spent with patient: 15-24 minutes Level of Care: MEDICAL Medications reviewed and adjusted accordingly: Yes Anticipated discharge: SNF Anticipated DC Timeframe: within 72 hours
[2020-05-11] MEDS: CITALOPRAM HYDROBROMIDE 20 MG TABLET PO SCH (22:10)
[2020-05-11] MEDS: BENZTROPINE MESYLATE 1 MG TABLET PO SCH (22:10)
[2020-05-11] MEDS: ATORVASTATIN CALCIUM 40 MG TABLET PO SCH (22:10)
[2020-05-11] MEDS: INSULIN GLARGINE,HUM.REC.ANLOG 1,000 UNIT/10 ML VIAL SUBCUT SCH (22:11)
[2020-05-12] MEDS: AMIODARONE HCL 200 MG TABLET PO SCH (09:19)
[2020-05-12] MEDS: METOPROLOL SUCCINATE 25 MG TAB.SR.24H PO SCH ×2 (09:20→21:07)
[2020-05-12] MEDS: METFORMIN HCL 500 MG TABLET PO SCH ×2 (09:20→21:07)
[2020-05-12] MEDS: FERROUS SULFATE 325 MG TABLET PO SCH ×2 (09:20→21:07)
[2020-05-12] MEDS: AMLODIPINE BESYLATE 10 MG TABLET PO SCH (09:20)
[2020-05-12] MEDS: RAMIPRIL 10 MG CAPSULE PO SCH (09:20)
[2020-05-12] MEDS: ISOSORBIDE MONONITRATE 30 MG TAB.ER.24H PO SCH (09:20)
[2020-05-12] MEDS: DOCUSATE SODIUM 100 MG CAPSULE PO SCH (09:20)
[2020-05-12] MEDS: CHOLECALCIFEROL (D3) 1,000 UNIT (25 MCG) TABLET PO SCH (09:20)
[2020-05-12] MEDS ORDERED: SODIUM BICARBONATE 8.4% INJ 50 MEQ/50 ML DISP.SYRIN ONE ×2 (14:34→19:27)
[2020-05-12] MEDS ORDERED: EPINEPHRINE INJ 1 MG/10 ML DISP.SYRIN ONE (14:34)
[2020-05-12] MEDS ORDERED: MIDAZOLAM HCL 50 MG/100 ML RTUINJ ONE (18:02)
[2020-05-12] MEDS: MIDAZOLAM HCL 50 MG/100 ML RTUINJ IV PRN (18:05)
[2020-05-12] MEDS ORDERED: MIDAZOLAM 2 MG/2 ML INJ ONE (18:06)
--- NOTE | 2020-05-12 18:30 | Progress Note ---
Provider Note Provider Note: I responded to a rapid response on this patient was called overhead. On my way to the patient's room, call was changed to a CODE BLUE. When I got to the room the nurses had already started CPR. They have been doing CPR for approximately 2 minutes and so epinephrine was administered at that time. The patient was receiving bag ventilation by respiratory therapy. It was PEA on the monitor. Patient received another round of 2 minutes of CPR and there was still asystole on the monitor and so another round of epinephrine was given and chest compressions were resumed. At the next pulse check we could not see a rhythm on the monitor but a pulse was detected and the patient was moving around some. We put oxygen on the patient 8 L and her saturations came up to 88%. We were able to get a blood pressure with a systolic in the 140s. The ICU had responded and was planning to move her down to the ICU when she lost pulse again. We resumed CPR and gave her another 3 rounds of CPR as well as another 2 rounds of epinephrine and we got a return of pulse again and the patient became responsive. She stayed like this for several minutes. She was intubated by Dr. Leyva. The recent surgical wound on her chest had begun to open up from the chest compressions. This was covered with gauze and ABD pads. The patient was then taken to the ICU by Dr. Leyva and the 2 nurses who came up from the ICU with him. Total critical care time was approximately 35 minutes.
--- NOTE | 2020-05-12 19:12 | RADIOLOGY REPORT (SQ) ---
EXAM DESCRIPTION: CHEST SINGLE VIEW IMAGES COMPLETED DATE/TIME: 05/12/2020 5:54 pm REASON FOR STUDY: CODE COMPARISON: 05/07/2020 EXAM PARAMETERS: NUMBER OF VIEWS: One view. TECHNIQUE: Single frontal radiographic view of the chest acquired. RADIATION DOSE: NA LIMITATIONS: Demographics mismatch warning. However, reference to the sternotomy wires confirms that this is the same patient as on the prior study. FINDINGS: LUNGS AND PLEURA: Pulmonary edema. MEDIASTINUM AND HILAR STRUCTURES: No masses. Contour normal. HEART AND VASCULAR STRUCTURES: Cardiomegaly. BONES: No acute findings. HARDWARE: Sternotomy wires. OTHER: No other significant finding. IMPRESSION: Cardiomegaly with pulmonary edema. TECHNICAL DOCUMENTATION: JOB ID: [id number] [employer]- All Rights Reserved Reading location - IP/workstation name: [email or web address]
[2020-05-12] MEDS ORDERED: ROCURONIUM BROMIDE INJ 50 MG/5 ML VIAL IV ONE (19:24)
[2020-05-12] MEDS ORDERED: NORMAL SALINE 1000 ML 1,000 ML IV ONE (19:29)
[2020-05-12] MEDS ORDERED: NOREPINEPHRINE BITARTRATE INJ/PF 4 MG/4 ML SDV IV ONE (19:30)
--- NOTE | 2020-05-12 19:35 | RADIOLOGY REPORT (SQ) ---
EXAM DESCRIPTION: CHEST SINGLE VIEW IMAGES COMPLETED DATE/TIME: 05/12/2020 7:17 pm REASON FOR STUDY: CENTRAL LINE PLACEMENT COMPARISON: 05/12/2020 EXAM PARAMETERS: NUMBER OF VIEWS: One view. TECHNIQUE: Single frontal radiographic view of the chest acquired. RADIATION DOSE: NA LIMITATIONS: None. FINDINGS: LUNGS AND PLEURA: Right pleural effusion is suggested. The left costophrenic angle is ob scured by overlying external cardiac pad. No pneumothorax. MEDIASTINUM AND HILAR STRUCTURES: No masses. Contour normal. HEART AND VASCULAR STRUCTURES: Cardiomegaly and pulmonary edema, unchanged findings. BONES: No acute findings. HARDWARE: Interval placement of right internal jugular line with tip in the region of the superior v mp cava. Endotracheal tube has also been placed in the interval, the tip is approximately 2.5 cm pr oximal to the gisselle. Prior anterior median sternotomy. OTHER: Gastric distention suggested. IMPRESSION: 1. Interval placement of endotracheal tube, the tip appears be approximately 2.5 cm pro ximal to the gisselle. Interval placement of Right IJ line, tip in the region of the superior vena cav a. No pneumothorax. 2. Cardiomegaly and pulmonary edema, unchanged findings. Right pleural effusion may be present. TECHNICAL DOCUMENTATION: JOB ID: [id number] 2010 [employer]- All Rights Reserved Reading location - IP/workstation name: [email or web address]
[2020-05-12] MEDS ORDERED: HEPARIN SODIUM,PORCINE/D5W 25,000 UNIT/250 ML RTUINJ IV PRN (19:44)
[2020-05-12] MEDS ORDERED: HEPARIN SOD (PORCINE) 1,000 UNIT/ML 10 ML VIAL IV ONE (19:44)
[2020-05-12] MEDS ORDERED: PIPERACILLIN/TAZOBACTAM 3.375 GM VIAL IV SCH (19:45)
[2020-05-12 20:11] LABS: MEAN CORPUSCULAR HEMOGLOBIN 29.3 pg (27.0-33.4); MEAN CORPUSCULAR HGB CONC 32.1 g/dL (32.0-36.0); MEAN CORPUSCULAR VOLUME 91 fl (80-97); PLATELET COUNT 335 10^3/uL (150-450); RED BLOOD COUNT 2.09 10^6/uL (3.72-5.28); RED CELL DISTRIBUTION WIDTH 17.2 % (11.5-14.0); WHITE BLOOD COUNT 10.1 10^3/uL (4.0-10.5)
[2020-05-12 20:16] LABS: HEMOGLOBIN 6.1 g/dL (12.0-15.5)
[2020-05-12] MEDS ORDERED: MIDAZOLAM 2 MG/2 ML INJ IV ONE (20:25)
[2020-05-12 20:28] LABS: VENOUS BLOOD BASE EXCESS -3.1 mmol/L; VENOUS BLOOD HCO3 24.2 mmol/L (20-32); VENOUS BLOOD PCO2 57.2 mmHg (35-63); VENOUS BLOOD PH 7.24 (7.30-7.42)
[2020-05-12] MEDS ORDERED: ALBUMIN HUMAN 500 ML IV ONE (20:30)
[2020-05-12 20:31] LABS: ANION GAP 8 (5-19); BLOOD UREA NITROGEN 15 mg/dL (7-20); CALCIUM 7.8 mg/dL (8.4-10.2); CARBON DIOXIDE 25 mmol/L (22-30); CHLORIDE 106 mmol/L (98-107); GLUCOSE 192 mg/dL (75-110); PHOSPHORUS 4.9 mg/dL (2.5-4.5); POTASSIUM 4.1 mmol/L (3.6-5.0)
[2020-05-12] MEDS ORDERED: CALCIUM GLUC IN NACL, ISO-OSM 1 GM/50 ML RTUPB IV ONE (20:42)
[2020-05-12] MEDS ORDERED: DEXTROSE 5%-WATER 250 ML with NOREPINEPHRINE BITARTRATE 4 MG IV PRN ×2 (20:52)
[2020-05-12 21:03] LABS: INTERNATIONAL RATION (INR) 1.33; PROTHROMBIN TIME 16.6 SEC (11.4-15.4)
[2020-05-12 21:04] LABS: PARTIAL THROMBOPLASTIN TIME 35.7 SEC (23.5-35.8)
[2020-05-12] MEDS: ATORVASTATIN CALCIUM 40 MG TABLET PO SCH (21:34)
[2020-05-12] MEDS: INSULIN GLARGINE,HUM.REC.ANLOG 1,000 UNIT/10 ML VIAL SUBCUT SCH (21:34)
[2020-05-12] MEDS: FENTANYL CITRATE/PF 600 MCG/60 ML BAG IV PRN (21:43)
[2020-05-12] MEDS: PANTOPRAZOLE SODIUM 40 MG VIAL IV SCH (22:05)
[2020-05-12] MEDS: PIPERACILLIN SODIUM/TAZOBACTAM 3.375 GM in NORMAL SALINE 100 ML IV SCH (22:05)
--- NOTE | 2020-05-12 22:34 | PDOC PROGRESS REPORT ---
Subjective Date:: 05/12/20 Subjective:: She developed cardiac arrest, PEA, underwent ACLS protocol, presently intubated in ICU Reason For Visit: ANEMIA,DIZZINESS Physical Exam Vital Signs: Temp Pulse Resp BP Pulse Ox 99.9 F 86 10 L 133/107 H 96 05/12/20 21:59 05/12/20 18:48 05/12/20 18:00 05/12/20 18:00 05/12/20 21:00 Intake & Output 05/11/20 05/12/20 05/13/20 06:59 06:59 06:59 Intake Total 740 1050 450 Output Total 10 Balance 740 1050 440 Weight 94.9 kg 96.1 kg Results Laboratory Results: 05/12/20 19:43 05/12/20 19:43 05/12/20 05/12/20 05/12/20 19:43 19:43 19:43 WBC 10.1 RBC 2.09 L Hgb 6.1 L Hct 19.0 L MCV 91 MCH 29.3 MCHC 32.1 RDW 17.2 H Plt Count 335 VBG pH VBG pCO2 VBG HCO3 VBG Base Excess Sodium 139.4 Potassium 4.1 Chloride 106 Carbon Dioxide 25 Anion Gap 8 BUN 15 Creatinine 0.95 Est GFR ( Amer) > 60 Glucose 192 H Calcium 7.8 L Ionized Calcium Jm 1.08 L Phosphorus 4.9 H Magnesium 1.6 05/12/20 19:43 WBC RBC Hgb Hct MCV MCH MCHC RDW Plt Count VBG pH 7.24 L VBG pCO2 57.2 VBG HCO3 24.2 VBG Base Excess -3.1 Sodium Potassium Chloride Carbon Dioxide Anion Gap BUN Creatinine Est GFR ( Amer) Glucose Calcium Ionized Calcium Jm Phosphorus Magnesium 05/09/20 17:15 Chest - Chest Wall Gram Stain - Final 05/09/20 17:15 Chest - Chest Wall Wound Culture - Final Proteus Mirabilis Providencia Alcalifaciens Providencia Stuartii 05/07/20 05/07/20 05/08/20 20:44 20:44 02:23 Creatine Kinase 172 H 164 H Troponin I 0.017 05/08/20 05/08/20 05/08/20 02:23 06:54 06:54 Creatine Kinase 141 H Troponin I 0.031 0.027 Impressions: Chest X-Ray 05/12/20 00:00 IMPRESSION: 1. Interval placement of endotracheal tube, the tip appears be approximately 2.5 cm proximal to the gisselle. Interval placement of Right IJ li ne, tip in the region of the superior vena cava. No pneumothorax. 2. Cardiomegaly and pulmonary edema, unchanged findings. Right pleural effusion may be present. Assessment & Plan - Diagnosis (1) Acute gastrointestinal bleeding Is this a current diagnosis for this admission?: Yes (2) Status post coronary artery bypass graft Is this a current diagnosis for this admission?: Yes (3) Physical deconditioning Is this a current diagnosis for this admission?: Yes (4) Anemia Qualifiers: Anemia type: other cause Other causes of anemia: acute posthemorrhagic Qualified Code(s): D62 - Acute posthemorrhagic anemia Is this a current diagnosis for this admission?: Yes (5) Type 2 diabetes mellitus with diabetic polyneuropathy Qualifiers: Diabetes mellitus long term acute care registered nurse insulin use: with long term acute care registered nurse use Qualified Code(s): E11.42 - Type 2 diabetes mellitus with diabetic polyneuropathy; Z79.4 - detention (current) use of insulin Is this a current diagnosis for this admission?: Yes - Time Time Spent with patient: 15-24 minutes Level of Care: ICU Medications reviewed and adjusted accordingly: Yes Anticipated discharge: Other Anticipated DC Timeframe: Other
--- NOTE | 2020-05-12 23:44 | Progress Note ---
Provider Note Provider Note: Rainer'renato pt at 1835 in ICU after transferred from floor 2/2 cardiac arrest. See CODE Note and ICU Admission note for details. Initially hemodynamically unstable 2/2 low SBP. Pt with hypoxemia with sats to low 80s on 100% FiO2. Pt sedated, not alert nor interactive. ETT in place. Midsternal incision dehiscent at the inferior aspect abd soft, + stool (non-bloody), moderate thick yellow OG output Poor radial pulses, cool to touch, no edema. Pt was given 1 liter crystalloid and 25g albumin with minimal improvement in pressures. Started on Levophed, needed up to 10mcg to achieve MAP of 60. Adjusted Vent settings to PRVC, PEEP to 8, RR14, vT500 with improved SpO2 to 94% on 60% FiO2. PPeak mid 30s Heparin bolus and drip ordered per Dr Leyva Over next hour or so, pt more awake, opens eyes to voice, nods head, gives thumbs up. Levo to 6mcg Fentanyl drip to 50mcg for pain Versed to 6mg for sedation Repleted iCa HgB to 6 BD -3 No UOP Discussed the above with the sister. She requests the pt have PRBCs if need be, but cautious as she is [employer]an and recently refused transfusion. Trial of lasix 2/2 CVP of 18 Wet-dry dressing changes CT Chest if remains stable.
--- NOTE | 2020-05-12 23:51 | EKG REPORT ---
SEVERITY:- ABNORMAL ECG - SINUS RHYTHM RBBB AND LAFB : Confirmed by: Martha Willson MD 12-May-2020 23:50:59
[2020-05-12] MEDS ORDERED: FUROSEMIDE INJ/PF 40 MG/4 ML SDV IV ONE (23:59)
[2020-05-13] MEDS: MIDAZOLAM HCL 50 MG/100 ML RTUINJ IV PRN ×3 (00:25→21:39)
[2020-05-13 00:26] LABS: APPEARANCE,URINE TURBID; BILIRUBIN,URINE NEGATIVE (NEGATIVE); COLOR,URINE AMBER; GLUCOSE, URINE 150 mg/dL (NEGATIVE); KETONES,URINE NEGATIVE (NEGATIVE); LEUKOCYTE ESTERASE,URINE LARGE (NEGATIVE); NITRITE,URINE NEGATIVE (NEGATIVE); PROTEIN,URINE >=500 mg/dL (NEGATIVE); URINE SPECIFIC GRAVITY 1.018
[2020-05-13] MEDS: PIPERACILLIN SODIUM/TAZOBACTAM 3.375 GM in NORMAL SALINE 100 ML IV SCH ×4 (03:08→21:24)
[2020-05-13 04:11] LABS: ANION GAP 12 (5-19); BLOOD UREA NITROGEN 22 mg/dL (7-20); CALCIUM 8.2 mg/dL (8.4-10.2); CARBON DIOXIDE 23 mmol/L (22-30); CHLORIDE 105 mmol/L (98-107); GLUCOSE 203 mg/dL (75-110); POTASSIUM 4.4 mmol/L (3.6-5.0)
[2020-05-13 04:12] LABS: HEMATOCRIT 20.8 % (36.0-47.0)
[2020-05-13 04:13] LABS: WHITE BLOOD COUNT 8.7 10^3/uL (4.0-10.5)
[2020-05-13 04:14] LABS: MEAN CORPUSCULAR HEMOGLOBIN 28.8 pg (27.0-33.4); MEAN CORPUSCULAR HGB CONC 32.7 g/dL (32.0-36.0); MEAN CORPUSCULAR VOLUME 88 fl (80-97); PLATELET COUNT 345 10^3/uL (150-450); RED BLOOD COUNT 2.36 10^6/uL (3.72-5.28); RED CELL DISTRIBUTION WIDTH 16.9 % (11.5-14.0)
[2020-05-13 04:15] LABS: HEMOGLOBIN 6.8 g/dL (12.0-15.5)
[2020-05-13] MEDS: FENTANYL CITRATE/PF 600 MCG/60 ML BAG IV PRN ×4 (04:44→21:39)
[2020-05-13] MEDS: CALCIUM GLUC IN NACL, ISO-OSM 1 GM/50 ML RTUPB IV SCH ×2 (06:44→08:02)
--- NOTE | 2020-05-13 07:17 | RADIOLOGY REPORT (SQ) ---
Abdomen x-ray single view on 05/12/2020 at 8:21 PM CLINICAL INDICATION: NG tube placement COMPARISON: 03/03/2019 FINDINGS: The patient is rotated on this exam somewhat. NG tube tip is in the body of the stomach. Visualized bowel gas pattern is unremarkable. Degenerative changes are noted in the spine. IMPRESSION: NG tube tip in the body of the stomach.
--- NOTE | 2020-05-13 10:10 | RADIOLOGY REPORT (SQ) ---
EXAM DESCRIPTION: CTA CHEST IMAGES COMPLETED DATE/TIME: 05/13/2020 9:04 am REASON FOR STUDY: R/o PE COMPARISON: Chest films 05/07/2020, 05/12/2020 TECHNIQUE: CT scan of the chest performed using helical scanning technique with dynamic intravenous contrast injection. Images reviewed with lung, soft tissue and bone windows. Reconstructed coronal and sagittal MPR images reviewed. Additional 3 dimensional post-processing performed to develop Maximal Intensity Projection images (MD P). All images stored on PACS. All CT scanners at this facility use dose modulation, iterative reconstruction, and/or weight based d osing when appropriate to reduce radiation dose to as low as reasonably achievable (ALARA). [facility]: Dose Right [facility]: CareDose [facility]: Dose Right [facility]: Teradose 4D [facility]: WorldState CONTRAST TYPE AND DOSE: contrast/concentration: Isovue 350.00 mmol/ml; Total Contrast Delivered: 78. 0 ml; Total Saline Delivered: 60.0 ml Contrast bolus adequate for pulmonary arteries and aorta. RENAL FUNCTION: Creatinine 1.1 RADIATION DOSE: CT Rad equipment meets quality standard of care and radiation dose reduction techniq ues were employed. CTDIvol: 3.8 - 15.5 mGy. DLP: 658 mGy-cm. . LIMITATIONS: None. FINDINGS: LUNGS AND PLEURA: There is dense volume loss and consolidation throughout the bilateral lo wer lobes, dependent dense consolidation in the posterior aspect of the upper lobes right greater zaheer n left. Airways are patent. Trace bilateral pleural effusions No pneumothorax AORTA AND GREAT VESSELS: No thoracic aortic aneurysm or dissection HEART: No pericardial effusion. Moderate cardiomegaly. Post recent sternotomy with CABG, anterior ch est wall wound has air and gauze dressings PULMONARY ARTERIES: No emboli visualized in the main pulmonary arteries or the segmental branches. HILAR AND MEDIASTINAL STRUCTURES: Mild mediastinal adenopathy HARDWARE: Endotracheal tube tip about 3 to 4 cm above the gisselle. Nasogastric tube tip and side port in the stomach UPPER ABDOMEN: Gallstones, hepatomegaly THYROID AND OTHER SOFT TISSUES: Anterior chest wall incision with a air and overlying gauze dressings . No mediastinal abnormal air. BONES: No acute or significant finding. 3D MIPS: Confirm above findings. OTHER: No other significant finding. IMPRESSION: No CT angio evidence of acute pulmonary emboli or thoracic aortic dissection Extensive lung consolidation bilaterally Trace bilateral pleural effusions COMMENT: Quality ID # [id number]: Final reports with documentation of one or more dose reduction techniques (e.g., Automated exposure control, adjustment of the mA and/or kV according to patient size, use of iterative reconstruction technique) TECHNICAL DOCUMENTATION: JOB ID: [id number] 2010 [employer]- All Rights Reserved Reading location - IP/workstation name: [email or web address]
[2020-05-13] MEDS: AMIODARONE HCL 200 MG TABLET PO SCH (10:49)
[2020-05-13] MEDS: PANTOPRAZOLE SODIUM 40 MG VIAL IV SCH ×2 (10:49→21:24)
[2020-05-13] MEDS: MAGNESIUM SULFATE/D5W 1 GM/100 ML RTUPB IV SCH ×2 (10:49→12:20)
[2020-05-13] MEDS: ISOSORBIDE MONONITRATE 30 MG TAB.ER.24H PO SCH (10:50)
[2020-05-13] MEDS: AMLODIPINE BESYLATE 10 MG TABLET PO SCH (10:50)
[2020-05-13] MEDS: METOPROLOL SUCCINATE 25 MG TAB.SR.24H PO SCH (10:50)
--- NOTE | 2020-05-13 11:28 | RADIOLOGY REPORT (SQ) ---
EXAM DESCRIPTION: CHEST SINGLE VIEW IMAGES COMPLETED DATE/TIME: 05/13/2020 10:31 am REASON FOR STUDY: acute resp failure COMPARISON: 05/12/2020 EXAM PARAMETERS: NUMBER OF VIEWS: One view. TECHNIQUE: Single frontal radiographic view of the chest acquired. RADIATION DOSE: NA LIMITATIONS: Overlying cardiac pad obscures the left lung base. FINDINGS: LUNGS AND PLEURA: Somewhat improved aeration of the lungs with likely small bilateral pleu ral effusions. No pneumothorax. MEDIASTINUM AND HILAR STRUCTURES: No masses. Contour normal. HEART AND VASCULAR STRUCTURES: Heart normal in size. Normal vasculature. BONES: No acute findings. HARDWARE: Endotracheal tube and right IJ catheter appears stable in position. Interval placement of an enteric tube, which terminates subdiaphragmatically out of the imaged field of view. OTHER: No other significant finding. IMPRESSION: Stable to somewhat improved pulmonary examination. Stable endotracheal tube and right I J catheter. Interval placement of an enteric tube. No evidence of complication. TECHNICAL DOCUMENTATION: JOB ID: [id number] 2010 [employer]- All Rights Reserved Reading location - IP/workstation name: [email or web address]
[2020-05-13] MEDS ORDERED: NORMAL SALINE INJ/PF 0.9% 10 ML SDV IV PRN (12:17)
[2020-05-13 12:46] LABS: ARTERIAL BLOOD BASE EXCESS -0.6 mmol/L; ARTERIAL BLOOD H2CO3 1.19 mmol/L (1.05-1.35); ARTERIAL BLOOD HCO3 24.1 mmol/L (20-24); ARTERIAL BLOOD O2 SATURATION 44.3 % (94-98); ARTERIAL BLOOD PCO2 39.6 mmHg (35-45); ARTERIAL BLOOD TOTAL CO2 25.3 mmol/L (21-25)
[2020-05-13 12:53] LABS: ARTERIAL BLOOD FIO2 40%
[2020-05-13 12:54] LABS: ARTERIAL BLOOD PO2 24.5 mmHg (80-100)
[2020-05-13] MEDS ORDERED: DEXTROSE 50%-WATER 25 GM/50 ML DISP.SYRIN IV PRN (15:58)
[2020-05-13] MEDS ORDERED: GLUCAGON,HUMAN RECOMB 1 MG INJ IM PRN (15:58)
[2020-05-13] MEDS ORDERED: DEXTROSE 40% GEL 15 GM TUBE PO PRN ×2 (15:58)
[2020-05-13] MEDS: INSULIN REG, HUMAN 100 UNIT/ML 3 ML VIAL (PYX) SUBCUT SCH ×3 (17:03→23:35)
[2020-05-13] MEDS ORDERED: VANCOMYCIN HCL INJ 1000 MG VIAL IV SCH (18:30)
--- NOTE | 2020-05-13 18:37 | Operative Report ---
Bedside Procedure - History of Present Illness Indication for Procedure: emergent IV access post-code Date: 05/12/20 Provider: KATIE RAHMAN - Central Line Right Internal jugular Consent obtained: No - Emergency post-code Central line pre-insertion: Sterile PPE donned, Chloraprep applied Central line lumen type: Triple Anesthetic type: 2% Lidocaine Ultrasound guided: Yes Line secured with sutures: Yes Central line post-insertion: Blood return from lumens, Biopatch applied, Sutured, Sterile dressing applied, Position confirmed w/ CXR Number of attempts: 2 Complications: No
--- NOTE | 2020-05-13 18:39 | Operative Report ---
Bedside Procedure - History of Present Illness Indication for Procedure: Code situation Date: 05/12/20 Provider: KATIE RAHMAN - Intubation Orotracheal Airway evaluation: Normal anatomy, Obese Mallampati Classification: Class 3 Medications: Other Intubation method: Orotracheal Blade type: Poppy Blade size: 4 ETT size: 8.0 ETT secured at: Teeth ETT secured at (cm): 23 Post Intubation Xray: Yes Intubation Complications: No complications
[2020-05-13] MEDS: ATORVASTATIN CALCIUM 40 MG TABLET PO SCH (21:24)
[2020-05-13] MEDS: HEPARIN SOD (PORCINE) 5,000 UNIT/ML 1 ML VIAL SUBCUT SCH (21:24)
[2020-05-13] MEDS: INSULIN GLARGINE,HUM.REC.ANLOG 1,000 UNIT/10 ML VIAL SUBCUT SCH (21:56)
[2020-05-13] MEDS: VANCOMYCIN HCL 1,000 MG in DEXTROSE 5%-WATER 250 ML IV SCH (22:51)
[2020-05-14] MEDS: PIPERACILLIN SODIUM/TAZOBACTAM 3.375 GM in NORMAL SALINE 100 ML IV SCH ×4 (02:25→21:39)
[2020-05-14] MEDS: FENTANYL CITRATE/PF 600 MCG/60 ML BAG IV PRN ×4 (03:13→20:14)
[2020-05-14 04:55] LABS: HEMATOCRIT 19.4 % (36.0-47.0); MEAN CORPUSCULAR HEMOGLOBIN 28.3 pg (27.0-33.4); MEAN CORPUSCULAR HGB CONC 32.8 g/dL (32.0-36.0); MEAN CORPUSCULAR VOLUME 86 fl (80-97); PLATELET COUNT 318 10^3/uL (150-450); RED BLOOD COUNT 2.25 10^6/uL (3.72-5.28); RED CELL DISTRIBUTION WIDTH 17.2 % (11.5-14.0); WHITE BLOOD COUNT 7.2 10^3/uL (4.0-10.5)
[2020-05-14 05:02] LABS: ANION GAP 7 (5-19); BLOOD UREA NITROGEN 23 mg/dL (7-20); CARBON DIOXIDE 26 mmol/L (22-30); CHLORIDE 105 mmol/L (98-107); GLUCOSE 132 mg/dL (75-110); HEMOGLOBIN 6.4 g/dL (12.0-15.5); POTASSIUM 3.6 mmol/L (3.6-5.0)
[2020-05-14] MEDS: INSULIN REG, HUMAN 100 UNIT/ML 3 ML VIAL (PYX) SUBCUT SCH ×4 (05:13→23:40)
--- NOTE | 2020-05-14 08:33 | EKG REPORT ---
SEVERITY:- ABNORMAL ECG - SINUS RHYTHM LEFT AXIS DEVIATION ABNORMAL T, CONSIDER ISCHEMIA, DIFFUSE LEADS PROLONGED QT INTERVAL : Confirmed by: Martha Willson MD 14-May-2020 08:32:59
[2020-05-14] MEDS: MIDAZOLAM HCL 50 MG/100 ML RTUINJ IV PRN ×2 (09:45→22:35)
[2020-05-14 09:52] LABS: ARTERIAL BLOOD BASE EXCESS 1.2 mmol/L; ARTERIAL BLOOD H2CO3 0.96 mmol/L (1.05-1.35); ARTERIAL BLOOD HCO3 24.4 mmol/L (20-24); ARTERIAL BLOOD O2 SATURATION 97.2 % (94-98); ARTERIAL BLOOD PCO2 31.9 mmHg (35-45); ARTERIAL BLOOD PO2 84.7 mmHg (80-100); ARTERIAL BLOOD TOTAL CO2 25.4 mmol/L (21-25)
[2020-05-14 09:56] LABS: ARTERIAL BLOOD FIO2 35%
[2020-05-14 10:21] LABS: CREATINE KINASE MB 2.29 ng/mL (<4.55)
[2020-05-14 10:32] LABS: TROPONIN I 1.39 ng/mL
[2020-05-14] MEDS: AMIODARONE HCL 200 MG TABLET PO SCH (10:42)
[2020-05-14] MEDS: HEPARIN SOD (PORCINE) 5,000 UNIT/ML 1 ML VIAL SUBCUT SCH ×2 (10:43→21:38)
[2020-05-14] MEDS: PANTOPRAZOLE SODIUM 40 MG VIAL IV SCH ×2 (10:43→21:38)
--- NOTE | 2020-05-14 12:27 | RADIOLOGY REPORT (SQ) ---
EXAM DESCRIPTION: CHEST SINGLE VIEW IMAGES COMPLETED DATE/TIME: 05/14/2020 9:39 am REASON FOR STUDY: resp failure COMPARISON: 05/13/2020 EXAM PARAMETERS: NUMBER OF VIEWS: One view. TECHNIQUE: Single frontal radiographic view of the chest acquired. RADIATION DOSE: NA LIMITATIONS: None. FINDINGS: LUNGS AND PLEURA: Mild interstitial changes. Localized opacification at the left heart jacquelyn rder. MEDIASTINUM AND HILAR STRUCTURES: No masses. Contour normal. HEART AND VASCULAR STRUCTURES: Heart normal in size. Normal vasculature. BONES: No acute findings. HARDWARE: Right internal jugular catheter has its tip in the superior vena cava. NG tube extends to the stomach. Endotracheal tube has its tip 5 cm above the gisselle. OTHER: No other significant finding. IMPRESSION: Cannot exclude a left lower lobe or lingular pneumonia. Mild interstitial changes are p resent. Cannot exclude mild pulmonary edema. The overall appearance of the chest is improved. TECHNICAL DOCUMENTATION: JOB ID: [id number] 2010 [employer]- All Rights Reserved Reading location - IP/workstation name: [email or web address]
[2020-05-14] MEDS: ATORVASTATIN CALCIUM 40 MG TABLET PO SCH (21:39)
[2020-05-14] MEDS: INSULIN GLARGINE,HUM.REC.ANLOG 1,000 UNIT/10 ML VIAL SUBCUT SCH (21:51)
[2020-05-14] MEDS: VANCOMYCIN HCL 1,000 MG in DEXTROSE 5%-WATER 250 ML IV SCH (22:35)
[2020-05-15] MEDS: FENTANYL CITRATE/PF 600 MCG/60 ML BAG IV PRN ×4 (02:09→20:09)
[2020-05-15] MEDS: PIPERACILLIN SODIUM/TAZOBACTAM 3.375 GM in NORMAL SALINE 100 ML IV SCH ×4 (02:20→21:08)
[2020-05-15 03:58] LABS: APPEARANCE,URINE CLOUDY; BILIRUBIN,URINE NEGATIVE (NEGATIVE); COLOR,URINE YELLOW; GLUCOSE, URINE NEGATIVE (NEGATIVE); KETONES,URINE NEGATIVE (NEGATIVE); LEUKOCYTE ESTERASE,URINE LARGE (NEGATIVE); NITRITE,URINE NEGATIVE (NEGATIVE); PROTEIN,URINE NEGATIVE (NEGATIVE); URIC ACID CRYSTALS,URINE RARE /HPF; URINE SPECIFIC GRAVITY 1.017
[2020-05-15 04:02] LABS: BLOOD UREA NITROGEN 20 mg/dL (7-20); CALCIUM 7.9 mg/dL (8.4-10.2); CARBON DIOXIDE 26 mmol/L (22-30); CHLORIDE 107 mmol/L (98-107); GLUCOSE 105 mg/dL (75-110); POTASSIUM 3.5 mmol/L (3.6-5.0)
[2020-05-15 04:07] LABS: ANION GAP 26 (5-19)
[2020-05-15 04:07] LABS: ARTERIAL BLOOD H2CO3 0.96 mmol/L (1.05-1.35); ARTERIAL BLOOD HCO3 22.6 mmol/L (20-24); ARTERIAL BLOOD O2 SATURATION 97.1 % (94-98); ARTERIAL BLOOD PH 7.47 (7.35-7.45); ARTERIAL BLOOD PO2 85.5 mmHg (80-100); ARTERIAL BLOOD TOTAL CO2 23.6 mmol/L (21-25)
[2020-05-15 04:08] LABS: ARTERIAL BLOOD FIO2 35%
[2020-05-15] MEDS ORDERED: 1/2 NORMAL SALINE 1,000 ML IV PRN (04:33)
[2020-05-15] MEDS: INSULIN REG, HUMAN 100 UNIT/ML 3 ML VIAL (PYX) SUBCUT SCH ×3 (04:59→17:37)
[2020-05-15] MEDS: POTASSI CL 20 MEQ/50 ML RIDER 20 MEQ/50 ML RTUPB IV SCH ×2 (05:09→06:34)
[2020-05-15 08:21] LABS: HEMATOCRIT 18.2 % (36.0-47.0); MEAN CORPUSCULAR HEMOGLOBIN 28.3 pg (27.0-33.4); MEAN CORPUSCULAR HGB CONC 32.6 g/dL (32.0-36.0); MEAN CORPUSCULAR VOLUME 87 fl (80-97); PLATELET COUNT 308 10^3/uL (150-450); RED CELL DISTRIBUTION WIDTH 17.6 % (11.5-14.0); WHITE BLOOD COUNT 7.9 10^3/uL (4.0-10.5)
[2020-05-15 08:25] LABS: HEMOGLOBIN 5.9 g/dL (12.0-15.5)
[2020-05-15] MEDS: HEPARIN SOD (PORCINE) 5,000 UNIT/ML 1 ML VIAL SUBCUT SCH ×2 (09:03→21:40)
[2020-05-15] MEDS: PANTOPRAZOLE SODIUM 40 MG VIAL IV SCH (09:03)
[2020-05-15] MEDS: AMIODARONE HCL 200 MG TABLET PO SCH (09:03)
[2020-05-15] MEDS: MIDAZOLAM HCL 50 MG/100 ML RTUINJ IV PRN ×2 (11:12→21:08)
[2020-05-15 12:01] LABS: ANION GAP 6 (5-19); BLOOD UREA NITROGEN 18 mg/dL (7-20); CALCIUM 7.6 mg/dL (8.4-10.2); CARBON DIOXIDE 26 mmol/L (22-30); CHLORIDE 109 mmol/L (98-107); POTASSIUM 3.4 mmol/L (3.6-5.0)
[2020-05-15 12:03] LABS: GLUCOSE 63 mg/dL (75-110)
[2020-05-15 12:11] LABS: CREATINE KINASE MB 0.91 ng/mL (<4.55)
[2020-05-15] MEDS: DEXTROSE 50%-WATER 25 GM/50 ML DISP.SYRIN IV PRN ×2 (12:12→17:37)
[2020-05-15 12:21] LABS: TROPONIN I 0.716 ng/mL
--- NOTE | 2020-05-15 13:34 | XCELERA REPORT ---
[address] [address] Transthoracic Echocardiogram Report Name: LAURA EDOUARD Age: 64 yrs Gender: Female : 1955 Patient Status: Inpatient Patient Location: ICU^607^A Study Date: 05/13/2020 02:41 PM Height: 65 in Weight: 209 lb BSA: 2.0 m2 Procedure: A two-dimensional transthoracic echocardiogram with color flow and Doppler was performed. Study Quality: Poor. Reason For Study: NSTEMI History: NSTEMI. Ordering Physician: KATIE RAHMAN Performed By: Yolie Gillis Interpretation Summary The left ventricle is grossly normal size. There is normal left ventricular wall thickness. LV EF is 60% Left ventricular systolic function is normal. Doppler measurements suggest normal left ventricular diastolic function Probably no regional wall motion abnormality. There is no thrombus. No ASD,VSD or PFO seen. The right ventricle is normal in size and function. The right atrium is normal. The left atrial size is normal. There is no mitral valve stenosis. There is no evidence of mitral valve prolapse. There is no vegetation seen on the mitral valve. There is a trace amount of mitral regurgitation There is no aortic valvular vegetation. There is no aortic valve stenosis No aortic regurgitation is present. There is no tricuspid stenosis. There is a mild amount of tricuspid regurgitation There is mild pulmonary hypertension by echo RVSP is 36 to 41 mm of Hgg , with RA mean of 5 to 10. There is no pulmonic valvular stenosis. There is no pulmonic valvular regurgitation. The aortic root is normal size. The inferior vena cava appeared normal and decreased > 50% with respiration (RAP 5-10 mmHg) There is no pericardial effusion. MMode/2D Measurements & Calculations RVDd: 1.9 cm LVIDd: 3.8 cm FS: 32.5 % Ao root diam: 2.5 cm IVSd: 0.95 cm LVIDs: 2.6 cm EDV(Teich): 62.6 ml Ao root area: 5.0 cm2 LVPWd: 0.95 cm ESV(Teich): 24.1 ml EF(Teich): 61.5 % Doppler Measurements & Calculations MV E max randall: MV dec slope: Ao V2 max: LV V1 max P.1 cm/sec 352.8 cm/sec2 143.1 cm/sec 5.4 mmHg MV A max randall: MV dec time: 0.24 secAo max PG: LV V1 max: 77.8 cm/sec 8.2 mmHg 116.3 cm/sec MV E/A: 1.1 PA V2 max: TR max randall: 105.1 cm/sec 277.0 cm/sec PA max P.4 mmHg TR max P.7 mmHg Left Ventricle The left ventricle is grossly normal size. There is normal left ventricular wall thickness. LV EF is 60%. Left ventricular systolic function is normal. Doppler measurements suggest normal left ventricular diastolic function. Probably no regional wall motion abnormality. There is no thrombus. No ASD,VSD or PFO seen. Right Ventricle The right ventricle is normal in size and function. Atria The right atrium is normal. The left atrial size is normal. Mitral Valve There is no evidence of mitral valve prolapse. There is no vegetation seen on the mitral valve. There is no mitral valve stenosis. There is a trace amount of mitral regurgitation. Aortic Valve There is no aortic valvular vegetation. There is no aortic valve stenosis. No aortic regurgitation is present. Tricuspid Valve There is no tricuspid stenosis. There is a mild amount of tricuspid regurgitation. There is mild pulmonary hypertension by echo. RVSP is 36 to 41 mm of Hgg , with RA mean of 5 to 10. Pulmonic Valve There is no pulmonic valvular stenosis. There is no pulmonic valvular regurgitation. Great Vessels The aortic root is normal size. The inferior vena cava appeared normal and decreased > 50% with respiration (RAP 5-10 mmHg). Effusions There is no pericardial effusion. : KATIE RAHMAN Lakshmi
--- NOTE | 2020-05-15 14:42 | PDOC CRITICAL CARE PROG REPORT ---
General Date:: 05/15/20 ICU Day:: 4 Ventilator Day:: 4 Hospital Day:: 9 Resuscitation Status: Full Code Events in the past 12 to 24 Hours:: As noted the had a dramatic turn of events at about 5PM last night. She had a cardiac arrest PEA x 2. She was down about 10 minutes the first time and 5 minutes the second. I intu bated her and than she was brought to the ICU. Her bp vacillated early on She required some abumin and > 1 lter fluid bolus before starting on levophed. The patient was started on empiric abx therapy. We started IV heparin on the supposition she may have had a Pulmonary Embolism as well. I placed a CVP in the Right IJ last night because the patient had poor access at the time. 05/14 The patient remains sedated on the ventilator. She does arouse and appears to understand when her sedation is lightened. Her BP is stable off of pressors. She appears fairly comfortable. Her trop was 1.39 this AM. Her ECG shows mor pronounced TWI in the precordium extending to v6 and in 2 and 3. Results of recent ECHO are pending. The patient is oin empiric abx therpay for her bilateral lower lobe infiltrates. 05/15 The patient has been stable. Remains off pressors. Tropnin trending down. ECHOI shows LVEF of about 60%. NO RWMA. RV with normal size and function. I am don g to tyr thepatient in SBT today. Physical Exam Vital Signs: Temp Pulse Resp BP Pulse Ox 98.6 F 72 10 L 111/53 L 100 05/15/20 14:00 05/15/20 14:00 05/15/20 14:00 05/15/20 14:00 05/15/20 14:00 Intake & Output 05/14/20 05/15/20 05/16/20 06:59 06:59 06:59 Intake Total 668 441 144 Output Total 1260 1565 510 Balance -592 -1124 -366 Weight 97.1 kg 95.9 kg Weight/Height Weight 95.9 kg Height 5 ft 5 in Laboratory/Radiographs Laboratory Results: 05/15/20 08:07 05/15/20 11:28 05/15/20 05/15/20 05/15/20 03:25 03:25 03:25 WBC RBC Hgb Hct MCV MCH MCHC RDW Plt Count Carbonic Acid HCO3/H2CO3 Ratio ABG pH ABG pCO2 ABG pO2 ABG HCO3 ABG O2 Saturation ABG Base Excess FiO2 Sodium 159.1 H Potassium 3.5 L Chloride 107 Carbon Dioxide 26 Anion Gap 26 H BUN 20 Creatinine 0.95 Est GFR ( Amer) > 60 Glucose 105 Calcium 7.9 L Magnesium 2.2 Urine Color YELLOW Urine Appearance CLOUDY Urine pH 5.0 Ur Specific [place] 1.017 Urine Protein NEGATIVE Urine Glucose (UA) NEGATIVE Urine Ketones NEGATIVE Urine Blood SMALL H Urine Nitrite NEGATIVE Ur Leukocyte Esterase LARGE H Urine WBC (Auto) 85 Urine RBC (Auto) 4 05/15/20 05/15/20 05/15/20 03:35 08:07 11:28 WBC 7.9 RBC 2.10 L Hgb 5.9 L Hct 18.2 L MCV 87 MCH 28.3 MCHC 32.6 RDW 17.6 H Plt Count 308 Carbonic Acid 0.96 L HCO3/H2CO3 Ratio 23:1 ABG pH 7.47 H ABG pCO2 32.0 L ABG pO2 85.5 ABG HCO3 22.6 ABG O2 Saturation 97.1 ABG Base Excess -1.0 FiO2 35% Sodium 141.4 Potassium 3.4 L Chloride 109 H Carbon Dioxide 26 Anion Gap 6 BUN 18 Creatinine 0.76 Est GFR ( Amer) > 60 Glucose 63 L Calcium 7.6 L Magnesium Urine Color Urine Appearance Urine pH Ur Specific [place] Urine Protein Urine Glucose (UA) Urine Ketones Urine Blood Urine Nitrite Ur Leukocyte Esterase Urine WBC (Auto) Urine RBC (Auto) 05/07/20 05/07/20 05/08/20 20:44 20:44 02:23 Creatine Kinase 172 H 164 H CK-MB (CK-2) Troponin I 0.017 05/08/20 05/08/20 05/08/20 02:23 06:54 06:54 Creatine Kinase 141 H CK-MB (CK-2) Troponin I 0.031 0.027 05/14/20 05/15/20 09:15 11:28 Creatine Kinase CK-MB (CK-2) 2.29 0.91 Troponin I 1.390 0.716 Impressions: KUB X-Ray 05/12/20 00:00 IMPRESSION: NG tube tip in the body of the stomach. Chest/Abdomen CTA 05/13/20 08:00 IMPRESSION: No CT angio evidence of acute pulmonary emboli or thoracic aortic dissection Extensive lung consolidation bilaterally Trace bilateral pleural effusions Chest X-Ray 05/14/20 08:15 IMPRESSION: Cannot exclude a left lower lobe or lingular pneumonia. Mild interstitial changes are present. Cannot exclude mild pulmonary edema. The overall appearance of the chest is improved. Assessment and Plan - Diagnosis (1) Status post coronary artery bypass graft Is this a current diagnosis for this admission?: Yes (2) Acute anemia Is this a current diagnosis for this admission?: Yes Plan: The patient had originally been admitted from rehab after her recent CABG for weakness and anemia. She is quite anemic secondary to her recent CABG and for the fact that she would but receive blood products ( as she is a evangelical). The patient was being considered for gi workup ( colon and EGD) to ensure there was no additional gi blood loss source. Hb today is 6.8 so no bg change form yesterday. 05/14 Hb just over 6. the patienty is a [employer] who has refused transfusion. No sign of overt gi bleeding. 05/15 Hb continues to decrease No sign of overt bleeding. (3) Hypotension Qualifiers: Hypotension type: orthostatic hypotension Qualified Code(s): I95.1 - Orthostatic hypotension Is this a current diagnosis for this admission?: Yes Plan: The patient became hypotensive and coded yesterday x 2. The cuse of her arrest appears unclear. The patient has been hemodynamically stable today. Has not been on levophed since the eraly AM hours. She is is in a NSR to sinus tach. the patient just had an ECHO. the results are pending. I did ot see a gross pericardial effusion and her LV fn. was not bad I have put all her antihypertensives and NTG on hold presently given her s"soft " bps." 05/14 Hypotension largely resolved but bp remains a little soft. heart rate in the nnormal range. 05/15 BP remains in normal range (4) T2DM (type 2 diabetes mellitus) Qualifiers: Diabetes mellitus intermission coordinator insulin use: with intermission coordinator use Diabetes mellitus complication status: with neurologic complications Diabetes mellitus complication detail: with polyneuropathy Qualified Code(s): E11.42 - Type 2 diabetes mellitus with diabetic polyneuropathy; Z79.4 - exterminator helper termite (current) use of insulin Is this a current diagnosis for this admission?: Yes Plan: Blood sugars are levated. The patient has not beenon coverage so we will start it. The patient is already getting Lantus 38 units once a day. 05/15 Blood sugar under good controll. Plan Summary: will see how patient does on SBT. I will call her heart surgeon and fill him in on recent series of events. Critical Time Critical Time (minutes): 35 Level of Care: ICU -: 1. The care of a critical patient is a dynamic process. This note is a billing customer service representative synopsis but static in nature. The timeframe for treatments given in order is not necessarily the actual time these treatments may have been done. 2. This patient requires critical care secondary to ongoing requirements for therapy not offered or safe outside the critical care environment. Transfer to a lower level of care will result in altered life or limb morbidity and morta lity. 3. Multidisciplinary rounds completed. 4. ABCDE bundle addressed.
[2020-05-15] MEDS ORDERED: DEXTROSE 5%-1/2 NORMAL SALINE 1,000 ML IV ONE (18:16)
[2020-05-15] MEDS: ATORVASTATIN CALCIUM 40 MG TABLET PO SCH (21:09)
[2020-05-15] MEDS: INSULIN GLARGINE,HUM.REC.ANLOG 1,000 UNIT/10 ML VIAL SUBCUT SCH (21:40)
[2020-05-16] MEDS: INSULIN REG, HUMAN 100 UNIT/ML 3 ML VIAL (PYX) SUBCUT SCH ×2 (00:18→05:05)
[2020-05-16] MEDS: FENTANYL CITRATE/PF 600 MCG/60 ML BAG IV PRN (01:51)
[2020-05-16] MEDS: PIPERACILLIN SODIUM/TAZOBACTAM 3.375 GM in NORMAL SALINE 100 ML IV SCH (02:08)
[2020-05-16 06:02] LABS: HEMATOCRIT 18.3 % (36.0-47.0); MEAN CORPUSCULAR HEMOGLOBIN 28.5 pg (27.0-33.4); MEAN CORPUSCULAR HGB CONC 32.7 g/dL (32.0-36.0); MEAN CORPUSCULAR VOLUME 87 fl (80-97); PLATELET COUNT 316 10^3/uL (150-450); WHITE BLOOD COUNT 7.5 10^3/uL (4.0-10.5)
[2020-05-16 06:11] LABS: ANION GAP 7 (5-19); BLOOD UREA NITROGEN 11 mg/dL (7-20); CALCIUM 7.5 mg/dL (8.4-10.2); CARBON DIOXIDE 23 mmol/L (22-30); CHLORIDE 112 mmol/L (98-107); GLUCOSE 124 mg/dL (75-110); POTASSIUM 3.3 mmol/L (3.6-5.0)
[2020-05-16 06:45] VITALS: BP 129/59
--- NOTE | 2020-06-29 14:17 | PDOC TRANSFER SUMMARY ---
General Admission Date/PCP: 05/07/20 16:42 ESVIN VITAL MD Resuscitation Status: Full Code - Transfer Diagnosis (1) Status post coronary artery bypass graft Is this a current diagnosis for this admission?: Yes Diagnosis Summary: The patient is s/p bypass 2 weeks ago. The patient had a cardiac arrest on 05/12. Siince being resuscitated her cardiac status has been fairly stable. Repeat ECHO shows LVEF of about 60%. ECG shows new TWI in leads 2 and 3 and TWI V1-V6 (previously V1-V3). her sternal wound dehisced during the resuscitation effort. (2) Acute anemia Is this a current diagnosis for this admission?: Yes Diagnosis Summary: No sign of overt bleeding Guiac from above and below negative. Hb hovering about 6. The patient is a Jain.so she has refused tranfusion. (3) T2DM (type 2 diabetes mellitus) Is this a current diagnosis for this admission?: Yes Diagnosis Summary: Blood sugars have been reasonably controlled. - Transfer Medications Home Medications: Benztropine Mesylate [Benztropine Mesylate 0.5 mg Tablet] 0.5 mg PO QHS 02/26/19 Cholecalciferol (Vitamin D3) [Vitamin D3 1000 Unit Tablet] 1,000 unit PO DAILY 02/26/19 Citalopram Hydrobromide [Citalopram HBr] 10 mg PO QHS 02/26/19 Dapagliflozin Propanediol [Farxiga] 10 mg PO DAILY 02/26/19 Furosemide [Lasix 40 mg Tablet] 40 mg PO QAM 02/26/19 Haloperidol [Haldol 5 mg Tablet] 5 mg PO QHS 02/26/19 Insulin Glargine,Hum.rec.anlog [Lantus Insulin 100 Unit/1 ml 10 ml] 38 unit SUBCUT QHS 02/26/19 Insulin Lispro [Humalog Insulin (Lispro) 100 unit/mL] 0 unit SUBCUT .SLIDINGSCALE 02/26/19 Metformin HCl [Glucophage 500 mg Tablet] 500 mg PO BID 02/26/19 Pioglitazone HCl [Actos] 30 mg PO DAILY 02/26/19 Amiodarone HCl [Cordarone 200 mg Tablet] 200 mg PO DAILY 05/07/20 Amlodipine Besylate [Norvasc 10 mg Tablet] 5 mg PO DAILY 05/07/20 Aspirin [Adult Low Dose Aspirin EC] 81 mg PO DAILY 05/07/20 Atorvastatin Calcium [Lipitor 40 mg Tablet] 40 mg PO QHS 05/07/20 Docusate Sodium [Colace 100 mg Capsule] 200 mg PO DAILY 05/07/20 Ferrous Sulfate [Feosol 325 mg Tablet] 325 mg PO BID 05/07/20 Isosorbide Mononitrate [Imdur 30 mg Tablet.er] 30 mg PO DAILY 05/07/20 Metoprolol Succinate [Toprol Xl 25 mg Tab.sr] 50 mg PO BID 05/07/20 Oxycodone HCl [Oxy-Ir 5 mg Tablet] 5 mg PO DAILYP PRN 05/07/20 Ramipril [Altace 10 mg Capsule] 10 mg PO DAILY 05/07/20 Sennosides [Senna] 8.6 mg PO DAILYP PRN 05/07/20 Transfer Medications: Current Medications Amiodarone HCl (Cordarone 200 Mg Tablet) 200 mg PO DAILY [facility] Stop: 06/06/20 20:59 Last Admin: 05/15/20 09:03 Dose: 200 mg Documented by: Atorvastatin Calcium (Lipitor 40 Mg Tablet) 40 mg PO QHS [facility] Stop: 06/06/20 21:59 Last Admin: 05/15/20 21:09 Dose: 40 mg Documented by: Benztropine Mesylate (Benztropine Mesylate 1 Mg Tablet) 0.5 mg PO QHS [facility] Stop: 06/06/20 21:59 Last Admin: 05/11/20 22:10 Dose: 0.5 mg Documented by: Citalopram Hydrobromide (Citalopram Hydrobromide 20 Mg Tablet) 10 mg PO QHS [facility] Stop: 06/06/20 21:59 Last Admin: 05/11/20 22:10 Dose: 10 mg Documented by: Dextrose (Dextrose 50%-Water 25 Gm/50 Ml Disp.Syrin) 12.5 gm IV PRN PRN; Protocol PRN Reason: FOR BG 50-69 IN ALERT PATIENT Stop: 06/12/20 15:57 Last Admin: 05/15/20 17:37 Dose: 12.5 gm Documented by: Dextrose (Dextrose 50%-Water 25 Gm/50 Ml Disp.Syrin) 25 gm IV PRN PRN; Protocol PRN Reason: PER PROTOCOL Stop: 06/12/20 15:57 Ferrous Sulfate (Ferrous Sulfate 325 Mg Tablet) 325 mg PO BID [facility] Stop: 06/07/20 20:59 Last Admin: 05/12/20 21:07 Dose: Not Given Documented by: Glucagon (Glucagon,Human Recomb 1 Mg Inj) 1 mg IM PRN PRN; Protocol PRN Reason: Evaluate for BG < 70 Stop: 06/12/20 15:57 Glucose (Dextrose 40% Gel 15 Gm Tube) 15 gm PO PRN PRN; Protocol PRN Reason: FOR BG 50-69 IN ALERT PATIENT Stop: 06/12/20 15:57 Glucose (Dextrose 40% Gel 15 Gm Tube) 30 gm PO PRN PRN; Protocol PRN Reason: FOR BG < 50 IN ALERT PATIENT Stop: 06/12/20 15:57 Heparin Sodium (Porcine) (Heparin Sod (Porcine) 10 Unit/Ml 5 Ml Disp.Syrg) 30 unit IV Q8 [facility] Stop: 06/12/20 13:59 Last Admin: 05/16/20 05:05 Dose: Not Given Documented by: Heparin Sodium (Porcine) (Heparin Sod (Porcine) 10 Unit/Ml 5 Ml Disp.Syrg) 30 unit IV .AFTER EACH USE PRN PRN Reason: AFTER EACH INTERMITTENT USE Stop: 06/12/20 12:16 Heparin Sodium (Porcine) (Heparin Sod (Porcine) 5,000 Unit/Ml 1 Ml Vial) 5,000 unit SUBCUT Q12 [facility] Stop: 06/12/20 21:59 Last Admin: 05/15/20 21:40 Dose: Not Given Documented by: Midazolam HCl (Versed Rtu 50 Mg/100 Ml Premix Bag) 50 mg in 100 mls @ 0 mls/hr IV CONTINUOUS PRN; Protocol PRN Reason: THIS MED IS NOT "PRN" Stop: 05/19/20 19:24 Last Titration: 05/15/20 22:15 Dose: 8 ml/hr, 8 mls/hr Documented by: Piperacillin Sod/Tazobactam (Sod 3.375 gm/ Sodium Chloride) 100 mls @ 200 mls/hr IV Q6A [facility] Stop: 05/19/20 21:59 Last Admin: 05/16/20 02:08 Dose: 200 mls/hr Documented by: Norepinephrine Bitartrate 4 mg (/ Dextrose) 254 mls @ 0 mls/hr IV CONTINUOUS PRN; Protocol PRN Reason: THIS MED IS NOT "PRN" Stop: 06/11/20 20:51 Last Titration: 05/13/20 01:17 Dose: 0 mcg/min, 0 mls/hr Documented by: Fentanyl Citrate (Sublimaze [employer]/Pf 600 Mcg/60 Ml Rtu Vial) 600 mcg in 60 mls @ 0 mls/hr IV ASDIR PRN; Protocol PRN Reason: THIS MED IS NOT "PRN" Stop: 05/19/20 21:12 Last Admin: 05/16/20 01:51 Dose: 10 mls/hr Documented by: Dextrose/Sodium Chloride (D5-1/2ns 1000 Ml Iv Soln) 1,000 mls @ 75 mls/hr IV BOLUS ONE Stop: 05/16/20 07:35 Last Admin: 05/15/20 18:00 Dose: 75 mls/hr Documented by: Insulin Glargine (Lantus Insulin 100 Unit/1 Ml 10 Ml) 38 unit SUBCUT QHS [facility] Stop: 06/07/20 21:59 Last Admin: 05/15/20 21:40 Dose: Not Given Documented by: Insulin Human Regular (Insulin Reg, Human 100 Unit/Ml 3 Ml Vial (Pyx)) 0 - 12 unit SUBCUT Q6 [facility]IMO; Protocol Stop: 06/12/20 15:59 Last Admin: 05/16/20 05:05 Dose: Not Given Documented by: Sodium Chloride (Normal Saline Inj/Pf 0.9% 10 Ml Sdv) 10 ml IV .AFTER EACH USE PRN PRN Reason: AFTER EACH INTERMITTENT USE Stop: 06/12/20 12:16 - Allergies Allergies/Adverse Reactions: No Known Allergies Allergy (Verified 03/08/19 13:17) Hospital Course Hospital Course: The cause of the arrest is a little unclear. Trop went up minimally. The patient does have bilateral basilar cnsolidationand an apparent major pneumonia. Physical Exam Vital Signs: Temp Pulse Resp BP Pulse Ox 99.0 F 68 14 129/59 H 100 05/16/20 06:00 05/15/20 20:51 05/16/20 06:39 05/16/20 06:39 05/16/20 06:39 Intake & Output 05/15/20 05/16/20 05/17/20 06:59 06:59 06:59 Intake Total 441 1284 Output Total 7341 2880 Balance -1124 -186 Weight 95.9 kg 98.9 kg Results Laboratory Results: 05/16/20 05:45 05/16/20 05:45 05/15/20 05/15/20 05/15/20 03:25 08:07 11:28 WBC 7.9 RBC 2.10 L Hgb 5.9 L Hct 18.2 L MCV 87 MCH 28.3 MCHC 32.6 RDW 17.6 H Plt Count 308 Sodium 141.4 Potassium 3.4 L Chloride 109 H Carbon Dioxide 26 Anion Gap 6 BUN 18 Creatinine 0.76 Est GFR ( Amer) > 60 Glucose 63 L Calcium 7.6 L Magnesium 2.2 05/16/20 05/16/20 05:45 05:45 WBC 7.5 RBC 2.10 L Hgb 6.0 L Hct 18.3 L MCV 87 MCH 28.5 MCHC 32.7 RDW 18.0 H Plt Count 316 Sodium 141.6 Potassium 3.3 L Chloride 112 H Carbon Dioxide 23 Anion Gap 7 BUN 11 Creatinine 0.76 Est GFR ( Amer) > 60 Glucose 124 H Calcium 7.5 L Magnesium 05/07/20 05/07/20 05/08/20 20:44 20:44 02:23 Creatine Kinase 172 H 164 H CK-MB (CK-2) Troponin I 0.017 05/08/20 05/08/20 05/08/20 02:23 06:54 06:54 Creatine Kinase 141 H CK-MB (CK-2) Troponin I 0.031 0.027 05/14/20 05/15/20 09:15 11:28 Creatine Kinase CK-MB (CK-2) 2.29 0.91 Troponin I 1.390 0.716 Impressions: KUB X-Ray 05/12/20 00:00 IMPRESSION: NG tube tip in the body of the stomach. Chest/Abdomen CTA 05/13/20 08:00 IMPRESSION: No CT angio evidence of acute pulmonary emboli or thoracic aortic dissection Extensive lung consolidation bilaterally Trace bilateral pleural effusions Chest X-Ray 05/14/20 08:15 IMPRESSION: Cannot exclude a left lower lobe or lingular pneumonia. Mild interstitial changes are present. Cannot exclude mild pulmonary edema. The overall appearance of the chest is improved.
== END 2020-05-16 08:07 | disposition short-term general hospital (02) | DRG 811 ==
LOC: ER 13:59 → EH 16:42 → 4W 17:32 → ICU 05-12 18:46
PROVIDERS: ADMIT Internal Medicine; ATTEND Internal Medicine
PROC: 5A1955Z Respiratory Ventilation, Greater than 96 Consecutive Hours (ICD-10-PCS; principal; 2020-05-12)
PROC: 0BH18EZ Insertion of Endotracheal Airway into Trachea, Via Natural or Artificial Opening Endoscopic (ICD-10-PCS; 2020-05-12)
PROC: 05HM33Z Insertion of Infusion Device into Right Internal Jugular Vein, Percutaneous Approach (ICD-10-PCS; 2020-05-12)
PROC: 5A12012 Performance of Cardiac Output, Single, Manual (ICD-10-PCS; 2020-05-12)
PROC: B24BZZ4 Ultrasonography of Heart with Aorta, Transesophageal (ICD-10-PCS; 2020-05-15)
DX: D62 Acute posthemorrhagic anemia (principal); I46.9 Cardiac arrest, cause unspecified; K92.1 Melena; I25.10 Atherosclerotic heart disease of native coronary artery without angina pectoris; E78.5 Hyperlipidemia, unspecified; I10 Essential (primary) hypertension; F25.9 Schizoaffective disorder, unspecified; E11.319 Type 2 diabetes mellitus with unspecified diabetic retinopathy without macular edema; E66.9 Obesity, unspecified; E11.42 Type 2 diabetes mellitus with diabetic polyneuropathy; Z53.1 Procedure and treatment not carried out because of patient's decision for reasons of belief and group pressure; B96.4 Proteus (mirabilis) (morganii) as the cause of diseases classified elsewhere; Z20.828 Contact with and (suspected) exposure to other viral communicable diseases; B96.1 Klebsiella pneumoniae [K. pneumoniae] as the cause of diseases classified elsewhere; I95.1 Orthostatic hypotension; Z95.1 Presence of aortocoronary bypass graft; Z87.891 Personal history of nicotine dependence; Z79.899 Other long term (current) drug therapy; Z79.4 Long term (current) use of insulin; Z79.82 Long term (current) use of aspirin; Z98.84 Bariatric surgery status; Z78.1 Physical restraint status
CPT/HCPCS: 31500; 36415; 36556; 36600; 71045; 71046; 71275; 74018; 80048; 80053; 81001; 82272; 82330; 82550; 82553; 82607; 82728; 82746; 82803; 82962; 83036; 83540; 83550; 83735; 84100; 84145; 84439; 84443; 84484; 85025; 85027; 85045; 85610; 85730; 87040; 87070; 87077; 87086; 87088; 87186; 87205; 87635; 93005; 93010; 93306; 94002; 94003; 99291; J0610; C9113; C9803; J0171; J1644; J1815; J1940; J2250; J2543; J3010; J3370; J3475; J3480; J3490; J7030; J7050; J7060; P9041